=== PATIENT | male | born 1955 | race Caucasian/White ===

== ENCOUNTER 2017-01-02 14:42 | Inpatient (IN) ==
[2017-01-02] MEDS ORDERED: 0.9 % Sodium Chloride 1,000 ML IV ONE (15:53)
[2017-01-02] MEDS ORDERED: Ipratropium/Albuterol Neb 3 ML IH ONE (16:06)
--- NOTE | 2017-01-02 17:18 | Emergency Department Note ---
Disposition Clinical Impression: Community acquired pneumonia Disposition: Admitted As Inpatient Referrals: Ruy Rollins MD [Primary Care Provider] - Forms: ED Satisfaction Letter Fever HPI - General Chief Complaint: ED Fever Stated Complaint: fever Time Seen by Provider: 01/02/17 15:08 Source: patient Nursing Notes Reviewed: Yes Vital Signs Reviewed: Yes - History of Present Illness HPI Narrative: Patient with fever and cough that started today ago. Patient states he has had some discharge from his trachea that is yellow in color. Patient has had elevated temperature and diffuse body aches. Patient states he has also having trouble breathing. Some fevers at home. Patient says similar past where he became septic. She denies chest pain denies shortness of breath. Patient denies any sick contacts. Patient denies neck or alleviating factors associated with shortness of breath - Related Data Home Medications Medication Instructions Recorded Confirmed Allopurinol [Zyloprim] 100 mg PO BID 07/05/15 01/02/17 Apixaban [Eliquis] 5 mg PO BID #0 07/05/15 01/02/17 Budesonide/Formoterol 160/4.5 2 puff IH BIDR 07/05/15 01/02/17 [Symbicort] Digoxin [Lanoxin] 250 mcg PO QAM 07/05/15 01/02/17 Fluticasone Propionate Nasal 50 mcg NS DAILY 07/05/15 01/02/17 [Flonase] Furosemide [Lasix] 40 mg PO BID 07/05/15 01/02/17 Loratadine [Claritin] 10 mg PO HS 07/05/15 01/02/17 Pioglitazone [Actos] 45 mg PO QAM 07/05/15 01/02/17 Potassium Chloride 20 meq PO QAM 07/05/15 01/02/17 Simvastatin [Zocor] 20 mg PO HS 07/05/15 01/02/17 Aspirin 81 mg PO QAM 07/21/15 01/02/17 Gabapentin [Neurontin] 800 mg PO TID 07/21/15 01/02/17 Metoprolol [Lopressor] 100 mg PO BID 07/21/15 01/02/17 Nitroglycerin 0.4 mg SL Q5MIN PRN 07/21/15 01/02/17 Tamsulosin [Flomax] 0.4 mg PO QAM 07/21/15 01/02/17 Tiotropium [Spiriva] 18 mcg IH DAILY 01/12/16 01/02/17 Albuterol Neb [Proventil Neb] 2.5 mg IH TID 01/27/16 01/02/17 Morphine Sulfate 15 mg PO Q4H PRN 01/27/16 01/02/17 Ergocalciferol (VITAMIN D2) 50,000 unit PO BARR 01/02/17 01/02/17 [Vitamin D2 (50,000 UNIT)] Previous Rx's Medication Instructions Recorded Albuterol Sulfate [Albuterol 2 puff IH Q6HR PRN #2 inhaler 11/30/15 Inhaler] Levothyroxine [Synthroid] 88 mcg PO QAM #30 tablet 04/17/16 GuaiFENesin/Codeine [Robitussin 5 ml PO Q6HR PRN #200 ml 09/26/16 w/Codeine] Allergies Allergy/AdvReac Type Severity Reaction Status Date / Time Amoxicillin Allergy Mild Rash Verified 01/02/17 14:46 ampicillin Allergy Mild Rash Verified 01/02/17 14:46 cefazolin Allergy Mild Rash Verified 01/02/17 14:46 cephalexin [From Keflex] Allergy Mild Rash Verified 01/02/17 14:46 levofloxacin [From Levaquin] Allergy Mild Blister Verified 01/02/17 14:46 Penicillins Allergy Mild Rash Verified 01/02/17 14:46 pramipexole [From Mirapex] Allergy Mild Rash Verified 01/02/17 14:46 Sulfa (Sulfonamide Allergy Mild Rash Verified 01/02/17 14:46 Antibiotics) vancomycin Allergy Mild RED MAN Verified 01/02/17 14:46 SYNDROME-SKIN PEELS clindamycin Allergy See Verified 01/02/17 14:46 Comments Oxycodone AdvReac Severe Unresponsiv Verified 01/02/17 14:46 e All systems ED: reviewed and negative except as stated. Fever PMH - Past Medical History Medical history: Reports: arthritis, atrial fibrillation, cancer, COPD, diabetes , hyperlipidemia, hypertension, peripheral artery disease, thyroid disease, other Surgical history: Reports: angioplasty/stent, appendectomy, cholecystectomy, orthopedic, other, pacemaker/AICD, tracheostomy, other Surgical history: Reports: other (Tracheostomy) Psychiatric history: Reports: no psych history - Social History Smoking Status: Never smoker Alcohol use: Reports: none Drug use: Reports: none Physical Exam - General Limitations: no limitations General appearance: alert, in no apparent distress - Head Head exam: atraumatic, normocephalic, normal inspection - Eye Eye exam: Present: normal appearance, PERRL, EOMI - ENT ENT exam: normal exam, normal oropharynx, mucous membranes moist - Neck Neck exam: Present: normal inspection, full ROM, trachea midline - Chest Chest inspection: Present: normal inspection, symmetric chest wall rise - Respiratory Respiratory exam: Present: wheezes, prolonged expiratory phase - Cardiovascular Cardiovascular exam: Present: regular rate, normal rhythm, normal heart sounds - Abdominal Exam Abdominal exam: Present: soft, Non-Tender. Absent: tenderness, distention, guarding, rebound, rigidity - Extremities Exam Extremities exam: Present: normal inspection, full ROM. Absent: tenderness, pedal edema - Back Exam Back exam: Present: normal inspection, full ROM. Absent: tenderness - Neurological Exam Neurological exam: Present: alert, oriented X3 - Psychiatric Psychiatric exam: Present: normal affect, normal mood - Skin Skin exam: Present: warm, dry, intact, normal color Course Course Narrative: Discussed this patient with Dr. Dalton who graciously accepted the patient Vital Signs Temperature 99.4 F 01/02/17 14:46 Pulse Rate 85 01/02/17 14:46 Respiratory Rate 22 01/02/17 14:46 Blood Pressure 163/78 01/02/17 14:46 O2 Sat by Pulse Oximetry 93 L 01/02/17 14:46 Temperature 99.6 F 01/02/17 19:33 Pulse Rate 72 01/02/17 20:22 Respiratory Rate 16 01/02/17 20:22 Blood Pressure 92/72 01/02/17 20:22 O2 Sat by Pulse Oximetry 94 L 01/02/17 20:22 Oxygen Delivery Oxygen Delivery Trach Mask Fever - Differential Diagnosis Likely: cellulitis, fever of occult origin, community acquired pneumonia, pyelonephritis - Lab Data Lab results reviewed: Yes I reviewed the patient's lab results. Result diagrams: 01/02/17 17:51 01/02/17 17:51 Lab Results 01/02/17 01/02/17 01/02/17 Range/Units 17:51 17:51 17:51 WBC 4.5 (4.3-11.1) K/mcL RBC 6.30 H (4.19-5.50) M/mcL Hgb 17.4 H (12.9-16.9) g/dL Hct 53.0 H (37.5-50.1) % MCV 84.1 (83.0-100.0) fL MCH 27.6 L (28.0-33.3) pg MCHC 32.8 (31.6-35.5) g/dL RDW 18.7 H (11.5-14.5) % Plt Count 93 L (140-400) K/mcL MPV 10.2 (9.4-12.4) fL Immature Gran % 0.2 (0-4) % Seg Neutrophils % 68.9 % Lymphocytes % 21.2 % Monocytes % 8.8 % Eosinophils % 0.2 % Basophils % 0.7 % Neutrophils # 3.1 (1.6-8.9) K/mcL Lymphocytes # 1.0 (0.6-4.6) K/mcL Monocytes # 0.4 (0.0-1.3) K/mcL Eosinophils # 0.0 (0.0-0.6) K/mcL Basophils # 0.0 (0.0-0.2) K/mcL Platelet Estimate Decreased L (Normal) Immature Plt Fraction 3.2 (1.1-6.1) % PT 22.4 H (9.4-12.1) Seconds INR 2.0 APTT 45.9 H (26.0-36.0) Seconds ABG pH (7.32-7.45) pH Units ABG pCO2 (35-45) mmHg ABG pO2 (85-104) mmHg ABG HCO3 (21-27) mEQ/L ABG Total CO2 (20-26) mEq/L ABG O2 Saturation (95-98) % ABG Base Excess (-2.0 to 3.0) mEq/L Blood Gas Modality Inspired O2 % Sodium (136-145) mEq/L Potassium (3.5-4.5) mEq/L Chloride (98-109) mEq/L Carbon Dioxide (19-29) mEq/L BUN (8-26) mg/dL Creatinine (0.72-1.25) mg/dL Est GFR ( Amer) (> 60) Est GFR (Non-Af Amer) (> 60) BUN/Creatinine Ratio (6-26) Glucose (70-99) mg/dL Calculated Osmolality (280-300) Lactic Acid (0.5-2.2) mmol/L Calcium (8.6-10.8) mg/dL Total Bilirubin (0.2-1.2) mg/dL AST (5-34) Units/L ALT (0-55) Units/L Alkaline Phosphatase (38-126) Units/L Troponin I (0-0.03) ng/mL B-Natriuretic Peptide 84 (0-100) pg/mL Serum Total Protein (6.0-8.3) g/dL Albumin (3.5-5.0) g/dL Globulin (2.4-3.5) g/dL Albumin/Globulin Ratio (1.1-2.2) Urine Color (Yellow) Urine Clarity (Clear) Urine pH (5.0-8.0) pH Units Ur Specific [place] (1.010-1.025) Urine Protein (Neg-Trace) mg/dL Urine Glucose (UA) (Normal) mg/dL Urine Ketones (Negative) mg/dL Urine Blood (Negative) Urine Nitrite (Negative) Urine Bilirubin (Negative) Urine Urobilinogen (Normal) mg/dL Ur Leukocyte Esterase (Negative) Urine Microscopic RBC (0-3) per hpf Urine Microscopic WBC (0-3) per hpf Ur Squamous Epith Cells (None-Few) per lpf Urine Bacteria (None-Few) per hpf Hyaline Casts (None-Few) per lpf Ur Culture Indicated? (NO) 01/02/17 01/02/17 01/02/17 Range/Units 17:51 17:51 17:51 WBC (4.3-11.1) K/mcL RBC (4.19-5.50) M/mcL Hgb (12.9-16.9) g/dL Hct (37.5-50.1) % MCV (83.0-100.0) fL MCH (28.0-33.3) pg MCHC (31.6-35.5) g/dL RDW (11.5-14.5) % Plt Count (140-400) K/mcL MPV (9.4-12.4) fL Immature Gran % (0-4) % Seg Neutrophils % % Lymphocytes % % Monocytes % % Eosinophils % % Basophils % % Neutrophils # (1.6-8.9) K/mcL Lymphocytes # (0.6-4.6) K/mcL Monocytes # (0.0-1.3) K/mcL Eosinophils # (0.0-0.6) K/mcL Basophils # (0.0-0.2) K/mcL Platelet Estimate (Normal) Immature Plt Fraction (1.1-6.1) % PT (9.4-12.1) Seconds INR APTT (26.0-36.0) Seconds ABG pH (7.32-7.45) pH Units ABG pCO2 (35-45) mmHg ABG pO2 (85-104) mmHg ABG HCO3 (21-27) mEQ/L ABG Total CO2 (20-26) mEq/L ABG O2 Saturation (95-98) % ABG Base Excess (-2.0 to 3.0) mEq/L Blood Gas Modality Inspired O2 % Sodium 137 (136-145) mEq/L Potassium 4.0 (3.5-4.5) mEq/L Chloride 102 (98-109) mEq/L Carbon Dioxide 26 (19-29) mEq/L BUN 14 (8-26) mg/dL Creatinine 1.14 (0.72-1.25) mg/dL Est GFR ( Amer) > 60 (> 60) Est GFR (Non-Af Amer) > 60 (> 60) BUN/Creatinine Ratio 12 (6-26) Glucose 85 (70-99) mg/dL Calculated Osmolality 284 (280-300) Lactic Acid 1.1 (0.5-2.2) mmol/L Calcium 8.9 (8.6-10.8) mg/dL Total Bilirubin 0.9 (0.2-1.2) mg/dL AST 24 (5-34) Units/L ALT 14 (0-55) Units/L Alkaline Phosphatase 82 (38-126) Units/L Troponin I 0.01 (0-0.03) ng/mL B-Natriuretic Peptide (0-100) pg/mL Serum Total Protein 6.7 (6.0-8.3) g/dL Albumin 3.4 L (3.5-5.0) g/dL Globulin 3.3 (2.4-3.5) g/dL Albumin/Globulin Ratio 1.0 L (1.1-2.2) Urine Color (Yellow) Urine Clarity (Clear) Urine pH (5.0-8.0) pH Units Ur Specific [place] (1.010-1.025) Urine Protein (Neg-Trace) mg/dL Urine Glucose (UA) (Normal) mg/dL Urine Ketones (Negative) mg/dL Urine Blood (Negative) Urine Nitrite (Negative) Urine Bilirubin (Negative) Urine Urobilinogen (Normal) mg/dL Ur Leukocyte Esterase (Negative) Urine Microscopic RBC (0-3) per hpf Urine Microscopic WBC (0-3) per hpf Ur Squamous Epith Cells (None-Few) per lpf Urine Bacteria (None-Few) per hpf Hyaline Casts (None-Few) per lpf Ur Culture Indicated? (NO) 01/02/17 01/02/17 Range/Units 18:00 20:46 WBC (4.3-11.1) K/mcL RBC (4.19-5.50) M/mcL Hgb (12.9-16.9) g/dL Hct (37.5-50.1) % MCV (83.0-100.0) fL MCH (28.0-33.3) pg MCHC (31.6-35.5) g/dL RDW (11.5-14.5) % Plt Count (140-400) K/mcL MPV (9.4-12.4) fL Immature Gran % (0-4) % Seg Neutrophils % % Lymphocytes % % Monocytes % % Eosinophils % % Basophils % % Neutrophils # (1.6-8.9) K/mcL Lymphocytes # (0.6-4.6) K/mcL Monocytes # (0.0-1.3) K/mcL Eosinophils # (0.0-0.6) K/mcL Basophils # (0.0-0.2) K/mcL Platelet Estimate (Normal) Immature Plt Fraction (1.1-6.1) % PT (9.4-12.1) Seconds INR APTT (26.0-36.0) Seconds ABG pH 7.41 (7.32-7.45) pH Units ABG pCO2 46 H (35-45) mmHg ABG pO2 68 L (85-104) mmHg ABG HCO3 29.2 H (21-27) mEQ/L ABG Total CO2 30.6 H (20-26) mEq/L ABG O2 Saturation 93 L (95-98) % ABG Base Excess 3.6 H (-2.0 to 3.0) mEq/L Blood Gas Modality CATM Inspired O2 28 % Sodium (136-145) mEq/L Potassium (3.5-4.5) mEq/L Chloride (98-109) mEq/L Carbon Dioxide (19-29) mEq/L BUN (8-26) mg/dL Creatinine (0.72-1.25) mg/dL Est GFR ( Amer) (> 60) Est GFR (Non-Af Amer) (> 60) BUN/Creatinine Ratio (6-26) Glucose (70-99) mg/dL Calculated Osmolality (280-300) Lactic Acid (0.5-2.2) mmol/L Calcium (8.6-10.8) mg/dL Total Bilirubin (0.2-1.2) mg/dL AST (5-34) Units/L ALT (0-55) Units/L Alkaline Phosphatase (38-126) Units/L Troponin I (0-0.03) ng/mL B-Natriuretic Peptide (0-100) pg/mL Serum Total Protein (6.0-8.3) g/dL Albumin (3.5-5.0) g/dL Globulin (2.4-3.5) g/dL Albumin/Globulin Ratio (1.1-2.2) Urine Color Yellow (Yellow) Urine Clarity Clear (Clear) Urine pH 6.0 (5.0-8.0) pH Units Ur Specific [place] 1.011 (1.010-1.025) Urine Protein Negative (Neg-Trace) mg/dL Urine Glucose (UA) Normal (Normal) mg/dL Urine Ketones Negative (Negative) mg/dL Urine Blood Trace H (Negative) Urine Nitrite Negative (Negative) Urine Bilirubin Negative (Negative) Urine Urobilinogen Normal (Normal) mg/dL Ur Leukocyte Esterase Negative (Negative) Urine Microscopic RBC 0-3 (0-3) per hpf Urine Microscopic WBC 0-3 (0-3) per hpf Ur Squamous Epith Cells Moderate H (None-Few) per lpf Urine Bacteria None Seen (None-Few) per hpf Hyaline Casts None Seen (None-Few) per lpf Ur Culture Indicated? NO (NO) - Radiology Data Radiology results reviewed: Yes I reviewed the patient's radiology results. Chest X-Ray 01/02/17 15:51 IMPRESSION: 1. Stable low lung volumes with bibasilar atelectasis. D/ / Alexis Luis MD / Alexis Luis MD Interpreting Provider: Alexis Luis MD Abdomen/Pelvis CT 01/02/17 18:36 IMPRESSION: 1. Central atelectasis in the right middle and bilateral lower lobes with scattered ground-glass opacities in the upper lobes. Pattern may represent ARDS or pulmonary edema. Aspiration or pneumonitis would be considered less likely. 2. Mild mucosal thickening of the bladder. This may be due to nondistention. Underlying cystitis cannot be excluded. 3. No other significant findings are detected throughout. D/ / Andrew Malcolm MD / Andrew Malcolm MD Interpreting Provider: Andrew Malcolm MD Chest CT 01/02/17 18:36 IMPRESSION: 1. Central atelectasis in the right middle and bilateral lower lobes with scattered ground-glass opacities in the upper lobes. Pattern may represent ARDS or pulmonary edema. Aspiration or pneumonitis would be considered less likely. 2. Mild mucosal thickening of the bladder. This may be due to nondistention. Underlying cystitis cannot be excluded. 3. No other significant findings are detected throughout. D/ / Andrew Malcolm MD / Andrew Malcolm MD Interpreting Provider: Andrew Malcolm MD - EKG Data EKG attestation: Yes I reviewed and interpreted this EKG. EKG results narrative: Electrically paced rhythm Critical Care Time Total Critical Care Time: 35 Attestation: Critical care performed: Time is exclusive of separately billable procedures. Time includes: direct patient care, patient reassessment, coordination of patient care, interpretation of data (laboratory data, radiology data, and respiratory data), review of patient's medical records, medical consultation and documentation of patient care. Procedures included in critical care time: Procedures excluded from critical care time:
[2017-01-02 18:12] LABS: Eosinophils % 0.2 %; Immature Granulocytes % 0.2 % (0-4); Prothrombin Time 22.4 Seconds (9.4-12.1)
[2017-01-02 18:14] LABS: Activated Partial Thrombo Time 45.9 Seconds (26.0-36.0)
[2017-01-02 18:21] LABS: Immature Platelets 3.2 % (1.1-6.1)
[2017-01-02 18:29] LABS: Alanine Aminotransferase 14 Units/L (0-55); Albumin 3.4 g/dL (3.5-5.0); Alkaline Phosphatase 82 Units/L (38-126); Aspartate Amino Transferase 24 Units/L (5-34); BUN/Creatinine Ratio 12 (6-26); Bilirubin,Total 0.9 mg/dL (0.2-1.2); Blood Urea Nitrogen 14 mg/dL (8-26); Calcium 8.9 mg/dL (8.6-10.8); Carbon Dioxide 26 mEq/L (19-29); Chloride 102 mEq/L (98-109); Globulin 3.3 g/dL (2.4-3.5); Glucose 85 mg/dL (70-99); Osmolality,Calculated 284 (280-300); Sodium 137 mEq/L (136-145); Total Protein 6.7 g/dL (6.0-8.3); eGFR For African Americans > 60 (> 60); eGFR For Non-African Americans > 60 (> 60)
[2017-01-02 18:33] LABS: Basophils % 0.7 %; Hemoglobin 17.4 g/dL (12.9-16.9); Lymphocytes % 21.2 %; Mean Corpuscular HGB Conc 32.8 g/dL (31.6-35.5); Mean Corpuscular Hemoglobin 27.6 pg (28.0-33.3); Mean Corpuscular Volume 84.1 fL (83.0-100.0); Mean Platelet Volume 10.2 fL (9.4-12.4); Monocytes # 0.4 K/mcL (0.0-1.3); Monocytes % 8.8 %; Neutrophils # 3.1 K/mcL (1.6-8.9); Red Cell Distribution Width 18.7 % (11.5-14.5); Segmented Neutrophils % 68.9 %
[2017-01-02 18:57] LABS: Platelet Count 93 K/mcL (140-400)
[2017-01-02 19:06] LABS: Platelet Estimate Decreased (Normal)
[2017-01-02 20:51] LABS: Bilirubin,Urine Negative (Negative); Blood,Urine Trace (Negative); Clarity,Urine Clear (Clear); Color,Urine Yellow (Yellow); Glucose,Urine (UA) Normal (Normal); Ketones,Urine Negative (Negative); Leukocyte Esterase,Urine Negative (Negative); Nitrite,Urine Negative (Negative); Protein,Urine Negative (Neg-Trace); Specific Gravity,Urine 1.011 (1.010-1.025); Urobilinogen,Urine Normal (Normal)
[2017-01-02 20:54] LABS: Bacteria,Urine None Seen per hpf (None-Few); Hyaline Casts,Urine None Seen per lpf (None-Few); RBC,Urine 0-3 per hpf (0-3); Squamous Epithelial Cell,Urine Moderate per lpf (None-Few); WBC,Urine 0-3 per hpf (0-3)
[2017-01-02 20:57] LABS: ABG Base Excess 3.6 mEq/L (-2.0 to 3.0); ABG HCO3 29.2 mEQ/L (21-27); ABG Oxygen Saturation 93 % (95-98); ABG PCO2 46 mmHg (35-45); ABG PH 7.41 pH Units (7.32-7.45); ABG PO2 68 mmHg (85-104); ABG TCO2 30.6 mEq/L (20-26)
[2017-01-02 21:00] LABS: Blood Gas FiO2 28 %
--- NOTE | 2017-01-02 23:23 | Internal Med History&Physical ---
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 labs to include lactic acid, procalcitonin, CRP Qualifiers: Sepsis type: sepsis due to unspecified organism Qualified Code(s): A41.9 - Sepsis, unspecified organism (2) Thrombocytopenia Status: Acute (3) Polycythemia Status: Chronic chronic has been elevated since August (4) Diabetes mellitus Status: Chronic Qualifiers: Diabetes mellitus type: type 2 Diabetes mellitus complication status: without complication Diabetes mellitus human insights lead ads marketing insulin use: unspecified human insights lead ads marketing insulin use status Qualified Code(s): E11.9 - Type 2 diabetes mellitus without complications (5) Hypertension Status: Chronic Qualifiers: Hypertension type: essential hypertension Qualified Code(s): I10 - Essential (primary) hypertension (6) Hypothyroidism Status: Chronic Qualifiers: Hypothyroidism type: unspecified Qualified Code(s): E03.9 - Hypothyroidism , unspecified (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 Vogel is a 61 year old male with a past medical history that includes hypertension, hyperlipidemia, coronary artery disease, peripheral vascular disease, diabetes, COPD, allergic rhinitis, chronic bronchitis, Castleman disease and tracheostomy status. He presents to the emergency department with a three-day history of fever, cough, and weakness. MAXIMUM TEMPERATURE 102. He has felt chills with his temperatures. He has had increased secretions from his tracheostomy. He has had nausea and emesis of mucus. He is having chest wall and abdominal (diaphragm) pain worsened during coughing. Positive sick contacts. Past Med Surg Social Fam HX - Past Medical History Medical history: arthritis, atrial fibrillation, cancer, COPD, diabetes, hyperlipidemia, hypertension, peripheral artery disease, thyroid disease, other Psychiatric history: no psych history - Past Surgical History Surgical History: angioplasty/stent, appendectomy, cholecystectomy, orthopedic, other, pacemaker/AICD, tracheostomy, other - Social History Smoking Status: Never smoker Smokeless Tobacco Status: No Alcohol use: none Drug use: none - Family History Mother Family Member Ethnicity: Non- Living Status: Still Living Father Living Status: Age at : 59 Cause of : cancer Hx Family Cancer: Yes Internal Medicine - H&P: Meds Allopurinol [Zyloprim] 100 mg PO BID 07/05/15 [History] Apixaban [Eliquis] 5 mg PO BID #0 07/05/15 [History] Budesonide/Formoterol 160/4.5 [Symbicort] 2 puff IH BIDR 07/05/15 [History] Digoxin [Lanoxin] 250 mcg PO QAM 07/05/15 [History] Fluticasone Propionate Nasal [Flonase] 50 mcg NS DAILY 07/05/15 [History] Furosemide [Lasix] 40 mg PO BID 07/05/15 [History] Loratadine [Claritin] 10 mg PO HS 07/05/15 [History] Pioglitazone [Actos] 45 mg PO QAM 07/05/15 [History] Potassium Chloride 20 meq PO QAM 07/05/15 [History] Simvastatin [Zocor] 20 mg PO HS 07/05/15 [History] Aspirin 81 mg PO QAM 07/21/15 [History] Gabapentin [Neurontin] 800 mg PO TID 07/21/15 [History] Metoprolol [Lopressor] 100 mg PO BID 07/21/15 [History] Nitroglycerin 0.4 mg SL Q5MIN PRN 07/21/15 [History] Tamsulosin [Flomax] 0.4 mg PO QAM 07/21/15 [History] Albuterol Sulfate [Albuterol Inhaler] 2 puff IH Q6HR PRN #2 inhaler 11/30/15 [Rx ] Tiotropium [Spiriva] 18 mcg IH DAILY 01/12/16 [History] Albuterol Neb [Proventil Neb] 2.5 mg IH TID 01/27/16 [History] Morphine Sulfate 15 mg PO Q4H PRN 01/27/16 [History] Levothyroxine [Synthroid] 88 mcg PO QAM #30 tablet 04/17/16 [Rx] GuaiFENesin/Codeine [ROBITUSSIN w/CODEINE] 5 ml PO Q6HR PRN #200 ml 09/26/16 [Rx ] Ergocalciferol (VITAMIN D2) [Vitamin D2 (50,000 UNIT)] 50,000 unit PO BARR [History] Benzonatate [Tessalon] 100 mg PO TID PRN #30 capsule 01/05/17 [Rx] Cefepime HCl/Dextrose, Iso-Osm [Cefepime 1 gm Injection] 1 gm IV Q12H 11 Days [Rx] PredniSONE 40 mg PO DAILY 6 Days 01/05/17 [Rx] Allergies Amoxicillin Allergy (Mild, Verified 01/02/17 14:46) Rash ampicillin Allergy (Mild, Verified 01/02/17 14:46) Rash cefazolin Allergy (Mild, Verified 01/02/17 14:46) Rash cephalexin [From Keflex] Allergy (Mild, Verified 01/02/17 14:46) Rash levofloxacin [From Levaquin] Allergy (Mild, Verified 01/02/17 14:46) Blister Penicillins Allergy (Mild, Verified 01/02/17 14:46) Rash pramipexole [From Mirapex] Allergy (Mild, Verified 01/02/17 14:46) Rash Sulfa (Sulfonamide Antibiotics) Allergy (Mild, Verified 01/02/17 14:46) Rash vancomycin Allergy (Mild, Verified 01/02/17 14:46) RED MAN SYNDROME-SKIN PEELS clindamycin Allergy (Verified 01/02/17 14:46) See Comments Oxycodone Adverse Reaction (Severe, Verified 01/02/17 14:46) Unresponsive All Systems PM: A 10-system review of systems was performed and is negative for pertinent findings except as documented above in the HPI. - Constitutional Constitutional: chills, fever(s) (tMax 102), malaise, weakness, no night sweats - EENT Eyes: no change in vision, no discharge, no pain, no photophobia Ears: no ear discharge, no ear pain, no tinnitus Nose, mouth and throat: nasal discharge, no dysphagia, no neck pain, no sore throat - Cardiovascular Cardiovascular ROS IM: chest pain (chest wall pain), no diaphoresis, no dyspnea , no lightheadedness, no palpitations, no syncope - Respiratory Respiratory: cough, excessive phlegm production, no dyspnea, no wheezing - Gastrointestinal Gastrointestinal: abdominal pain (diaphragm level), constipation, diarrhea, no hematemesis, no hematochezia, no melena, no nausea, no vomiting - Genitourinary Genitourinary ROS male: dysuria, penile discharge - Musculoskeletal Musculoskeletal ROS IM: no numbness, no tingling - Integumentary Integumentary IM: no rash, no unusual bruising - Neurological Neurological ROS: no confusion, no convulsions, no focal weakness, no numbness, no tingling, no tremor(s) - Hematologic/Lymphatic Hematologic/Lymphatic: no easy bruising - Constitutional Vitals: Temp Pulse Resp BP Pulse Ox 98.8 F 73 15 93/63 95 01/02/17 22:23 01/02/17 22:23 01/02/17 22:23 01/02/17 22:23 01/02/17 22:23 General appearance: Present: A&O X 3, no acute distress, answers questions appropriately - Head Head exam: Present: atraumatic, normocephalic - Eye Eye exam: Present: PERRL, conjuntiva pink, sclera anicteric Pupils: Present: PERRL - Neck Additional comments: tracheostomy - Respiratory Respiratory exam: Present: prolonged expiratory phase, wheezes - Cardiovascular Cardiovascular exam: Present: RRR, +S1, +S2. Absent: diastolic murmur, gallop, rubs, systolic murmur - GI/Abdominal GI/Abdominal exam: Present: normal bowel sounds, soft, no peritoneal signs. Absent: distended, tenderness - Extremities Exam Extremities exam: Present: warm. Absent: calf tenderness, cyanotic, pedal edema - Neurological Exam Neurological exam: Present: CN II-XII intact, oriented X3, no focal deficits. Absent: pronater drift, facial droop, speech deficit - Skin Skin exam: Present: dry, intact - Other Additional findings: chest wall pain is reproducible on exam Internal Med - H&P Results - Labs CBC & Chem 7: 01/02/17 17:51 01/02/17 17:51 <Thad Hillman - Last Filed: 01/09/17 05:17> Date of Encounter: 01/02/17 Assessment and Plan (1) Sepsis associated hypotension Status: Acute . (2) Sepsis with disseminated intravascular coagulopathy (DIC) Status: Acute . (3) SIRS due to infectious process with acute organ dysfunction Status: Acute . (4) Pacemaker Status: Chronic . (5) Pseudomonas aeruginosa colonization Status: Chronic . (6) MRSA (methicillin resistant Staphylococcus aureus) colonization Status: Chronic . (7) Atelectasis of both lungs Status: Acute . (8) HCAP (healthcare-associated pneumonia) Status: Acute . (9) Multiple drug allergies Status: Chronic . (10) At risk for acid-base imbalance Status: Acute . (11) At risk for activity intolerance Status: Acute . (12) At risk for acute confusion Status: Acute . (13) Polypharmacy Status: Chronic . (14) Hypothyroidism Status: Chronic . Qualifiers: Hypothyroidism type: acquired Qualified Code(s): E03.9 - Hypothyroidism, unspecified (15) Hypogonadism Status: Chronic . 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 (17) Monoclonal gammopathy Status: Chronic . (18) Risk for falls Status: Chronic . (19) Sepsis Status: Chronic . Qualifiers: Sepsis type: sepsis due to unspecified organism Qualified Code(s): A41.9 - Sepsis, unspecified organism (20) Tracheitis Status: Acute . (21) Acute exacerbation of chronic obstructive pulmonary disease (COPD) Status: Acute . (22) Atrial fibrillation Status: Chronic . Qualifiers: Atrial fibrillation type: chronic Qualified Code(s): I48.2 - Chronic atrial fibrillation (23) CAD (coronary artery disease) Status: Chronic . Qualifiers: Coronary Disease-Associated Artery/Lesion type: unspecified vessel or lesion type [place] vs. transplanted heart: in[place]iat heart Associated angina: without angina Qualified Code(s): I25.10 - Atherosclerotic heart disease of [place] coronary artery without angina pectoris (24) Castleman disease Status: Chronic . (25) Chronic respiratory failure Status: Chronic . Qualifiers: Respiratory failure complication: unspecified whether with hypoxia or hypercapnia Qualified Code(s): J96.10 - Chronic respiratory failure, unspecified whether with hypoxia or hypercapnia (26) Diabetes mellitus Status: Chronic . Qualifiers: Diabetes mellitus type: type 2 Diabetes mellitus complication status: without complication Diabetes mellitus nursing home insulin use: without nursing home use Qualified Code(s): E11.9 - Type 2 diabetes mellitus without complications (27) Hypertension Status: Chronic . Qualifiers: Hypertension type: essential hypertension Qualified Code(s): I10 - Essential (primary) hypertension (28) Hypothyroidism Status: Chronic . Qualifiers: Hypothyroidism type: unspecified Qualified Code(s): E03.9 - Hypothyroidism , unspecified (29) Immunodeficiency Status: Chronic . (30) POEMS syndrome Status: Chronic . (31) Tracheobronchitis Status: Chronic . (32) Tracheostomy dependent Status: Chronic (33) Erythrocytosis Status: Chronic . (34) EMILY (obstructive sleep apnea) Status: Chronic . (35) Obesity (BMI 30-39.9) Status: Chronic . (36) Debility, unspecified Status: Chronic . Internal Medicine - H&P: HPI History of present illness: Mr. Vogel is a 61 year old male needed to [facility] via the emergency department when he presented with complaints of difficulty breathing and fever. Patient is visited and interviewed and examined. For this encounter, I have reviewed the documentation, treatment plan, and medical decision making. I examined this patient and my medical decision-making was reviewed with the Resident Physician. I agree with the documented findings, disposition and treatment plan as described except to the extent set forth below. Cumulative laboratory and radiographic database was reviewed, considered and discussed. Given the patient's presenting concerns, past medical history, clinical findings and symptoms, he is admitted at this time to undergo further evaluation and disposition. Orders written. Past Med Surg Social Fam HX - Past Medical History Source: old records reviewed Medical history: arthritis, asthma, atrial fibrillation (Pacemaker dependent.), cancer, COPD ( The ostomy for ventilator-dependent respiratory failure. EMILY. ), coronary artery disease, diabetes, GERD, GI bleed (Gastric ulceration with GI bleed.), hyperlipidemia, hypertension, osteoporosis, peripheral artery disease, renal disease (CKD. Hypogonadism.), thyroid disease, other (POEMS Syndrome(polyneuropathy, organomegaly, endocrinopathy, monoclonal protein, skin changes). Patient receives monthly IV Ig injections.) Psychiatric history: no psych history, other - Past Surgical History Surgical History: angioplasty/stent, appendectomy, arthroscopy, cholecystectomy , LE vascular intervention, orthopedic, other, pacemaker/AICD, sinus surgery, tracheostomy, vascular surgery, other, pacemaker - Social History Smoking Status: Former smoker Occupational status: disabled Current living situation: With Family Activity Level: Independent ambulation, Mostly sedentary Recent Out of Country Travel Within the Last 8 Weeks: No Exposure or Possible Exposure to Illness During Travel: No All Systems PM: A 10-system review of systems was performed and is negative for pertinent findings except as documented above in the HPI. - Constitutional Vitals: Temp Pulse Resp BP Pulse Ox 97.9 F 73 16 99/64 93 L 01/05/17 14:45 01/05/17 14:45 01/05/17 16:15 01/05/17 14:45 01/05/17 16:15 Internal Med - H&P Results - Labs CBC & Chem 7: 01/04/17 05:51 01/04/17 05:51 Labs: 01/02/17 01/03/17 20:46 05:55 ABG pH 7.41 ABG pCO2 46 H ABG pO2 68 L ABG HCO3 29.2 H ABG Total CO2 30.6 H ABG O2 Saturation 93 L ABG Base Excess 3.6 H VBG pH 7.37 VBG pCO2 53 H VBG pO2 49 H VBG HCO3 30.6 H Abnormal lab results RBC 6.56 M/mcL (4.19-5.50) H 01/04/17 05:51 Hgb 17.4 g/dL (12.9-16.9) H 01/04/17 05:51 Hct 54.2 % (37.5-50.1) H 01/04/17 05:51 MCV 82.6 fL (83.0-100.0) L 01/04/17 05:51 MCH 26.5 pg (28.0-33.3) L 01/04/17 05:51 RDW 18.3 % (11.5-14.5) H 01/04/17 05:51 Plt Count 86 K/mcL (140-400) L 01/04/17 05:51 Platelet Estimate Decreased (Normal) L 01/04/17 05:51 Polychromasia 1+ (Not Present) A 01/04/17 05:51 Macrocytosis Present (Not Present) A 01/04/17 05:51 PT 20.4 Seconds (9.4-12.1) H 01/03/17 05:55 APTT 42.7 Seconds (26.0-36.0) H 01/03/17 05:55 ABG pCO2 46 mmHg (35-45) H 01/02/17 20:46 ABG pO2 68 mmHg (85-104) L 01/02/17 20:46 ABG HCO3 29.2 mEQ/L (21-27) H 01/02/17 20:46 ABG Total CO2 30.6 mEq/L (20-26) H 01/02/17 20:46 ABG O2 Saturation 93 % (95-98) L 01/02/17 20:46 ABG Base Excess 3.6 mEq/L (-2.0 to 3.0) H 01/02/17 20:46 VBG pCO2 53 mmHg (41-51) H 01/03/17 05:55 VBG pO2 49 mmHg (25-40) H 01/03/17 05:55 VBG HCO3 30.6 mEq/L (21-27) H 01/03/17 05:55 Glucose 179 mg/dL (70-99) H 01/04/17 05:51 POC Glucose 176 (58-89) H 01/05/17 16:08 Calcium 8.5 mg/dL (8.6-10.8) L 01/04/17 05:51 Ionized Calcium 1.09 mmol/L (1.15-1.35) L 01/03/17 05:55 C-Reactive Protein 23 mg/L (Less than 5) H 01/03/17 05:55 Serum Total Protein 5.9 g/dL (6.0-8.3) L 01/03/17 05:55 Albumin 3.1 g/dL (3.5-5.0) L 01/03/17 05:55 Procalcitonin 0.11 ng/mL (<=0.10) H 01/03/17 05:55 Urine Blood Trace (Negative) H 01/02/17 18:00 Ur Squamous Epith Cells Moderate per lpf (None-Few) H 01/02/17 18:00 Allergies Allergy/AdvReac Type Severity Reaction Status Date / Time Amoxicillin Allergy Mild Rash Verified 01/02/17 14:46 ampicillin Allergy Mild Rash Verified 01/02/17 14:46 cefazolin Allergy Mild Rash Verified 01/02/17 14:46 cephalexin [From Keflex] Allergy Mild Rash Verified 01/02/17 14:46 levofloxacin [From Levaquin] Allergy Mild Blister Verified 01/02/17 14:46 Penicillins Allergy Mild Rash Verified 01/02/17 14:46 pramipexole [From Mirapex] Allergy Mild Rash Verified 01/02/17 14:46 Sulfa (Sulfonamide Allergy Mild Rash Verified 01/02/17 14:46 Antibiotics) vancomycin Allergy Mild RED MAN Verified 01/02/17 14:46 SYNDROME-SKIN PEELS clindamycin Allergy See Verified 01/02/17 14:46 Comments Oxycodone AdvReac Severe Unresponsiv Verified 01/02/17 14:46 e Laboratory Last Values WBC 5.0 K/mcL (4.3-11.1) D 01/04/17 05:51 RBC 6.56 M/mcL (4.19-5.50) H 01/04/17 05:51 Hgb 17.4 g/dL (12.9-16.9) H 01/04/17 05:51 Hct 54.2 % (37.5-50.1) H 01/04/17 05:51 MCV 82.6 fL (83.0-100.0) L 01/04/17 05:51 MCH 26.5 pg (28.0-33.3) L 01/04/17 05:51 MCHC 32.1 g/dL (31.6-35.5) 01/04/17 05:51 RDW 18.3 % (11.5-14.5) H 01/04/17 05:51 Plt Count 86 K/mcL (140-400) L 01/04/17 05:51 MPV 10.8 fL (9.4-12.4) 01/04/17 05:51 Immature Gran % 0.4 % (0-4) 01/04/17 05:51 Seg Neutrophils % 82.0 % 01/04/17 05:51 Lymphocytes % 15.4 % 01/04/17 05:51 Monocytes % 1.8 % 01/04/17 05:51 Eosinophils % 0.2 % 01/04/17 05:51 Basophils % 0.2 % 01/04/17 05:51 Neutrophils # 4.1 K/mcL (1.6-8.9) 01/04/17 05:51 Lymphocytes # 0.8 K/mcL (0.6-4.6) 01/04/17 05:51 Monocytes # 0.1 K/mcL (0.0-1.3) 01/04/17 05:51 Eosinophils # 0.0 K/mcL (0.0-0.6) 01/04/17 05:51 Basophils # 0.0 K/mcL (0.0-0.2) 01/04/17 05:51 Platelet Estimate Decreased (Normal) L 01/04/17 05:51 Immature Plt Fraction 5.1 % (1.1-6.1) 01/04/17 05:51 Polychromasia 1+ (Not Present) A 01/04/17 05:51 Macrocytosis Present (Not Present) A 01/04/17 05:51 PT 20.4 Seconds (9.4-12.1) H 01/03/17 05:55 INR 1.9 01/03/17 05:55 APTT 42.7 Seconds (26.0-36.0) H 01/03/17 05:55 ABG pH 7.41 pH Units (7.32-7.45) 01/02/17 20:46 ABG pCO2 46 mmHg (35-45) H 01/02/17 20:46 ABG pO2 68 mmHg (85-104) L 01/02/17 20:46 ABG HCO3 29.2 mEQ/L (21-27) H 01/02/17 20:46 ABG Total CO2 30.6 mEq/L (20-26) H 01/02/17 20:46 ABG O2 Saturation 93 % (95-98) L 01/02/17 20:46 ABG Base Excess 3.6 mEq/L (-2.0 to 3.0) H 01/02/17 20:46 VBG pH 7.37 pH Units (7.32-7.42) 01/03/17 05:55 VBG pCO2 53 mmHg (41-51) H 01/03/17 05:55 VBG pO2 49 mmHg (25-40) H 01/03/17 05:55 VBG HCO3 30.6 mEq/L (21-27) H 01/03/17 05:55 Blood Gas Modality [facility] 01/02/17 20:46 Inspired O2 28 % 01/02/17 20:46 Sodium 139 mEq/L (136-145) 01/04/17 05:51 Potassium 4.1 mEq/L (3.5-4.5) 01/04/17 05:51 Chloride 105 mEq/L (98-109) 01/04/17 05:51 Carbon Dioxide 25 mEq/L (19-29) 01/04/17 05:51 BUN 13 mg/dL (8-26) 01/04/17 05:51 Creatinine 1.00 mg/dL (0.72-1.25) 01/04/17 05:51 Est GFR ( Amer) > 60 (> 60) 01/04/17 05:51 Est GFR (Non-Af Amer) > 60 (> 60) 01/04/17 05:51 BUN/Creatinine Ratio 13 (6-26) 01/04/17 05:51 Glucose 179 mg/dL (70-99) H 01/04/17 05:51 POC Glucose 176 (58-89) H 01/05/17 16:08 Calculated Osmolality 293 (280-300) 01/04/17 05:51 Lactic Acid 0.8 mmol/L (0.5-2.2) 01/03/17 05:55 Calcium 8.5 mg/dL (8.6-10.8) L 01/04/17 05:51 Ionized Calcium 1.09 mmol/L (1.15-1.35) L 01/03/17 05:55 Phosphorus 2.6 mg/dL (2.3-4.7) 01/03/17 05:55 Magnesium 1.8 mg/dL (1.6-2.6) 01/04/17 05:51 Total Bilirubin 0.7 mg/dL (0.2-1.2) 01/03/17 05:55 AST 23 Units/L (5-34) 01/03/17 05:55 ALT 12 Units/L (0-55) 01/03/17 05:55 Alkaline Phosphatase 72 Units/L (38-126) 01/03/17 05:55 Troponin I 0.01 ng/mL (0-0.03) 01/03/17 22:14 C-Reactive Protein 23 mg/L (Less than 5) H 01/03/17 05:55 B-Natriuretic Peptide 84 pg/mL (0-100) 01/02/17 17:51 Serum Total Protein 5.9 g/dL (6.0-8.3) L 01/03/17 05:55 Albumin 3.1 g/dL (3.5-5.0) L 01/03/17 05:55 Globulin 2.8 g/dL (2.4-3.5) 01/03/17 05:55 Albumin/Globulin Ratio 1.1 (1.1-2.2) 01/03/17 05:55 Procalcitonin 0.11 ng/mL (<=0.10) H 01/03/17 05:55 Urine Color Yellow (Yellow) 01/02/17 18:00 Urine Clarity Clear (Clear) 01/02/17 18:00 Urine pH 6.0 pH Units (5.0-8.0) 01/02/17 18:00 Ur Specific Chloe 1.011 (1.010-1.025) 01/02/17 18:00 Urine Protein Negative mg/dL (Neg-Trace) 01/02/17 18:00 Urine Glucose (UA) Normal mg/dL (Normal) 01/02/17 18:00 Urine Ketones Negative mg/dL (Negative) 01/02/17 18:00 Urine Blood Trace (Negative) H 01/02/17 18:00 Urine Nitrite Negative (Negative) 01/02/17 18:00 Urine Bilirubin Negative (Negative) 01/02/17 18:00 Urine Urobilinogen Normal mg/dL (Normal) 01/02/17 18:00 Ur Leukocyte Esterase Negative (Negative) 01/02/17 18:00 Urine Microscopic RBC 0-3 per hpf (0-3) 01/02/17 18:00 Urine Microscopic WBC 0-3 per hpf (0-3) 01/02/17 18:00 Ur Squamous Epith Cells Moderate per lpf (None-Few) H 01/02/17 18:00 Urine Bacteria None Seen per hpf (None-Few) 01/02/17 18:00 Hyaline Casts None Seen per lpf (None-Few) 01/02/17 18:00 Ur Culture Indicated? NO (NO) 01/02/17 18:00 - ABG Interpretation ABG results: 01/03/17 05:55 VBG pH 7.37 VBG pCO2 53 H VBG pO2 49 H VBG HCO3 30.6 H - EKG Data EKG comments: 01/09/17 04:26 Chest X-Ray 01/02/17 15:51 IMPRESSION: 1. Stable low lung volumes with bibasilar atelectasis. D/ / Alexis Luis MD / Alexis Luis MD Interpreting Provider: Alexis Luis MD Abdomen/Pelvis CT 01/02/17 18:36 IMPRESSION: 1. Central atelectasis in the right middle and bilateral lower lobes with scattered ground-glass opacities in the upper lobes. Pattern may represent ARDS or pulmonary edema. Aspiration or pneumonitis would be considered less likely. 2. Mild mucosal thickening of the bladder. This may be due to nondistention. Underlying cystitis cannot be excluded. 3. No other significant findings are detected throughout. D/ / Andrew Malcolm MD / Andrew Malcolm MD Interpreting Provider: Andrew Malcolm MD Chest CT 01/02/17 18:36 IMPRESSION: 1. Central atelectasis in the right middle and bilateral lower lobes with scattered ground-glass opacities in the upper lobes. Pattern may represent ARDS or pulmonary edema. Aspiration or pneumonitis would be considered less likely. 2. Mild mucosal thickening of the bladder. This may be due to nondistention. Underlying cystitis cannot be excluded. 3. No other significant findings are detected throughout. D/ / Andrew Malcolm MD / Andrew Malcolm MD Interpreting Provider: Andrew Malcolm MD - Attending Attestation My signature below is to certify that this patient is under my care and that I, or the Resident Physician working with me, has had a [id number] encounter with this patient. Care Plan has been reviewed and discussed in detail with the patient and family. Questions addressed. Advance care directive discussions briefly addressed. The patient does not declare any healthcare restrictions at this time. Outpatient medication schedules will be reviewed, confirmed and facilitated as appropriate. Reconciliation of home treatments including adjustments, substitutions and reintroduction into the treatment regimen will address necessary maintenance therapies for chronic pre-existing medical conditions. Smoking cessation counseling briefly addressed. The patient declares self a former heavy smoker. Hospital course depended upon the clinical findings, treatment response and potential consultation interventions. The patient is at risk for acute clinical decline and morbidity in this presenting chief complaint, findings and associated comorbidities. Condition is serious. Prognosis is guarded. CODE STATUS is full.
[2017-01-03] MEDS ORDERED: 0.9 % Sodium Chloride 1,000 ML IVC ONE (01:23)
[2017-01-03] MEDS ORDERED: Ondansetron ODT 4 MG TAB.RAPDIS SL PRN (01:30)
[2017-01-03] MEDS ORDERED: Acetaminophen 325 MG TABLET PO PRN (01:30)
[2017-01-03] MEDS ORDERED: Naloxone 0.4 MG/ML INJ IVP PRN (01:30)
[2017-01-03] MEDS ORDERED: D5% in Water 1,000 ML IV PRN (01:33)
[2017-01-03] MEDS ORDERED: Dextrose Gel 15 GM PO PRN ×2 (01:33)
[2017-01-03] MEDS ORDERED: *HR* Dextrose 50 % in Water (Syg) 50 ML SYRINGE IVP PRN (01:33)
[2017-01-03] MEDS ORDERED: *HR* Morphine 2 MG/ML SYRINGE IVP PRN ×2 (02:23→15:35)
[2017-01-03] MEDS ORDERED: *HR* OxyCODONE Immed Rel 5 MG TABLET PO PRN (02:23)
[2017-01-03] MEDS ORDERED: Ondansetron 4 MG/2 ML VIAL IVP PRN (02:23)
[2017-01-03] MEDS ORDERED: Nitroglycerin 0.4 MG TAB.SUBL SL PRN (02:29)
[2017-01-03] MEDS ORDERED: Benzonatate 100 MG CAPSULE PO PRN (02:35)
[2017-01-03] MEDS ORDERED: Acetylcysteine 10% 2 ML INHSOL IH SCH (02:45)
[2017-01-03] MEDS: Azithromycin 500 MG in D5% in Water 250 ML IVPB SCH (02:58)
[2017-01-03] MEDS: 0.9 % Sodium Chloride 1,000 ML IVC SCH ×2 (02:58→15:12)
[2017-01-03 06:06] LABS: VBG HCO3 30.6 mEq/L (21-27); VBG PH 7.37 pH Units (7.32-7.42)
[2017-01-03 06:09] LABS: Eosinophils % 0.4 %; Hemoglobin 16.3 g/dL (12.9-16.9); Immature Granulocytes % 0.4 % (0-4); Red Cell Distribution Width 18.5 % (11.5-14.5)
[2017-01-03 06:11] LABS: Basophils % 1.1 %; Hematocrit 50.5 % (37.5-50.1); Immature Platelets 3.4 % (1.1-6.1); Lymphocytes # 0.7 K/mcL (0.6-4.6); Lymphocytes % 25.9 %; Mean Corpuscular HGB Conc 32.3 g/dL (31.6-35.5); Mean Corpuscular Hemoglobin 27.3 pg (28.0-33.3); Mean Corpuscular Volume 84.6 fL (83.0-100.0); Mean Platelet Volume 9.8 fL (9.4-12.4); Monocytes # 0.4 K/mcL (0.0-1.3); Monocytes % 13.5 %; Red Blood Count 5.97 M/mcL (4.19-5.50); Segmented Neutrophils % 58.7 %
[2017-01-03 06:13] LABS: Ionized Calcium 1.09 mmol/L (1.15-1.35)
[2017-01-03 06:15] LABS: INR 1.9; Prothrombin Time 20.4 Seconds (9.4-12.1)
[2017-01-03 06:18] LABS: Activated Partial Thrombo Time 42.7 Seconds (26.0-36.0)
[2017-01-03 06:22] LABS: Alanine Aminotransferase 12 Units/L (0-55); Albumin 3.1 g/dL (3.5-5.0); Albumin/Globulin Ratio 1.1 (1.1-2.2); Alkaline Phosphatase 72 Units/L (38-126); Aspartate Amino Transferase 23 Units/L (5-34); BUN/Creatinine Ratio 14 (6-26); Bilirubin,Total 0.7 mg/dL (0.2-1.2); Blood Urea Nitrogen 15 mg/dL (8-26); C-Reactive Protein 23 mg/L (Less than 5); Calcium 8.1 mg/dL (8.6-10.8); Carbon Dioxide 27 mEq/L (19-29); Chloride 104 mEq/L (98-109); Globulin 2.8 g/dL (2.4-3.5); Glucose 109 mg/dL (70-99); Magnesium 1.5 mg/dL (1.6-2.6); Osmolality,Calculated 285 (280-300); Phosphorous 2.6 mg/dL (2.3-4.7); Potassium 3.6 mEq/L (3.5-4.5); Sodium 137 mEq/L (136-145); Total Protein 5.9 g/dL (6.0-8.3); eGFR For African Americans > 60 (> 60); eGFR For Non-African Americans > 60 (> 60)
[2017-01-03 06:39] LABS: Neutrophils # 1.6 K/mcL (1.6-8.9); Platelet Count 80 K/mcL (140-400)
[2017-01-03] MEDS ORDERED: Meropenem 1,000 MG in 0.9 % Sodium Chloride Mini Bag 100 ML IVPB SCH (08:00)
--- NOTE | 2017-01-03 08:12 | Internal Med Progress Note ---
Date of Encounter: 01/03/17 Time of Encounter: 08:09 - Assessment and plan (1) Severe sepsis Current Visit: Yes Status: Acute Assessment and plan: Patient likely has sepsis related to bilateral upper lobe pneumonia. Given his underlying immunosuppression, multiple antibiotic allergies, POEMS disease, requires inpatient admission for IV antibiotics. He is noted to have elevated PT/INR, however review of previous labs show he has had this for a long time and this is less likely a result of severe sepsis. Continue IV hydration, IV antibiotics. Monitor vital signs and urine output closely. Lactic acid noted to be normal. (2) Community acquired pneumonia Current Visit: Yes Status: Acute Assessment and plan: CT chest shows bilateral upper and lower groundglass opacities along with atelectasis of right middle lobe and bilateral lower lobes. Possible underlying pneumonia. Continue broad-spectrum IV antibiotics-Zyvox, meropenem and azithromycin given his multiple allergies to antibiotics. Continue IV hydration, supportive care. Noted to be requiring high flow oxygen via tracheostomy mask. High risk patient due to underlying immunosuppression. (3) COPD (chronic obstructive pulmonary disease) Current Visit: Yes Status: Acute Assessment and plan: Noted to have mild acute exacerbation. Start scheduled along with as needed breathing treatments. Continue inhaled corticosteroids. He does have underlying immunosuppression but will start short-term course of steroids due to active wheezing and difficulty breathing and hypoxia. Continue supportive care. 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 Continue tracheostomy care. (5) Atrial fibrillation Current Visit: Yes Status: Chronic Assessment and plan: Currently rate controlled. Continue metoprolol. 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 Receives monthly IVIG injections. (7) Diabetes mellitus Current Visit: Yes Status: Chronic Assessment and plan: Accu-Chek blood glucose monitoring with sliding scale insulin. Check hemoglobin A1c. 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 Continues to have a hacking cough, productive with yellowish tracheal secretions. No fever spikes overnight. No chest pain, nausea or vomiting. Reports some vague upper abdominal pain. - Constitutional Vitals: Temp Pulse Resp BP Pulse Ox 99.2 F 75 16 109/68 95 01/03/17 06:44 01/03/17 06:44 01/03/17 06:44 01/03/17 06:44 01/03/17 06:44 General appearance: Present: A&O X 3, answers questions appropriately - Head Head exam: Present: atraumatic, normocephalic - Neck Neck exam general surgery: Present: supple, trachea midline. Absent: lymphadenopathy Additional comments: Status post tracheostomy, on trach mask - Respiratory Respiratory exam: Present: wheezes (Bilateral coarse breath sounds with posterior end expiratory wheezing). Absent: accessory muscle use, rales, rhonchi - Cardiovascular Cardiovascular exam: Present: RRR, +S1, +S2. Absent: diastolic murmur, gallop, rubs, systolic murmur - GI/Abdominal GI/Abdominal exam: Present: normal bowel sounds, soft, no peritoneal signs. Absent: distended, tenderness - Extremities Exam Extremities exam: Present: full ROM, warm, radial pulses palpable and symetrical. Absent: calf tenderness, cyanotic, pedal edema - Neurological Exam Neurological exam: Present: CN II-XII intact, oriented X3, no focal deficits. Absent: pronater drift, facial droop, speech deficit - Skin Skin exam: Present: dry, intact Internal Medicine: Result - Labs CBC & Chem 7: 01/03/17 05:55 01/03/17 05:55 Labs: Short CBC 01/03/17 Range/Units 05:55 WBC 2.8 L (4.3-11.1) K/mcL Hgb 16.3 (12.9-16.9) g/dL Hct 50.5 H (37.5-50.1) % Plt Count 80 L (140-400) K/mcL Neutrophils # 1.6 (1.6-8.9) K/mcL BMP 01/03/17 05:55 Sodium 137 Potassium 3.6 Chloride 104 Carbon Dioxide 27 BUN 15 Creatinine 1.11 Glucose 109 H Calcium 8.1 L Cardiac Enzymes 01/03/17 Range/Units 05:55 Troponin I 0.01 (0-0.03) ng/mL Liver Function 01/03/17 Range/Units 05:55 Total Bilirubin 0.7 (0.2-1.2) mg/dL AST 23 (5-34) Units/L ALT 12 (0-55) Units/L Alkaline Phosphatase 72 (38-126) Units/L Albumin 3.1 L (3.5-5.0) g/dL - ABG Interpretation ABG results: ABG ABG pH 7.41 pH Units (7.32-7.45) 01/02/17 20:46 ABG pCO2 46 mmHg (35-45) H 01/02/17 20:46 ABG pO2 68 mmHg (85-104) L 01/02/17 20:46 ABG O2 Saturation 93 % (95-98) L 01/02/17 20:46 PT/INR, D-dimer PT 20.4 Seconds (9.4-12.1) H 01/03/17 05:55 Consult Discharge Plan - Plan Referrals: Ruy Rollins MD [Primary Care Provider] -
[2017-01-03] MEDS ORDERED: Albuterol 2.5 MG/3 ML NEBULIZER IH PRN (08:21)
[2017-01-03] MEDS ORDERED: Famotidine 20 MG TABLET PO SCH (09:00)
[2017-01-03] MEDS: APIXABAN 5 MG TABLET PO SCH ×2 (09:15→21:50)
[2017-01-03] MEDS: *HR* Digoxin 0.25 MG TABLET PO SCH (09:15)
[2017-01-03] MEDS: Aspirin 81 MG TAB.CHEW PO SCH (09:15)
[2017-01-03] MEDS: Furosemide 40 MG TABLET PO SCH ×2 (09:15→21:50)
[2017-01-03] MEDS: Gabapentin 400 MG CAPSULE PO SCH ×3 (09:16→21:51)
[2017-01-03] MEDS: Metoprolol 100 MG TABLET PO SCH ×2 (09:16→21:51)
[2017-01-03] MEDS: Fluticasone Propionate Nasal 50 MCG/SPRAY BOTTLE NS SCH (09:16)
[2017-01-03] MEDS: Insulin LISPRO 300 UNITS/3 ML VIAL SQ SCH ×7 (09:16→21:30)
[2017-01-03] MEDS: MethylPREDNISolone 40 MG/ML VIAL IVP SCH ×3 (09:16→23:43)
[2017-01-03] MEDS ORDERED: Magnesium Sulfate 2 GM in D5% in Water 100 ML IVPB ONE (09:59)
[2017-01-03] MEDS: Ipratropium/Albuterol Neb 3 ML IH SCH ×3 (10:42→22:29)
[2017-01-03] MEDS: Acetylcysteine 10% 2 ML INHSOL IH SCH ×3 (10:43→22:29)
[2017-01-03] MEDS: Cefepime HCl 2,000 MG in D5% in Water (Mini-Bag+) 100 ML IVPB SCH (17:17)
--- NOTE | 2017-01-03 19:46 | Electrocardiograph Report ---
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
[2017-01-03] MEDS: Loratadine 10 MG TABLET PO SCH (21:50)
[2017-01-04] MEDS: 0.9 % Sodium Chloride 1,000 ML IVC SCH ×3 (01:50→20:42)
[2017-01-04] MEDS: Azithromycin 500 MG in D5% in Water 250 ML IVPB SCH (01:50)
[2017-01-04] MEDS: Ipratropium/Albuterol Neb 3 ML IH SCH ×4 (04:49→22:42)
[2017-01-04] MEDS: Acetylcysteine 10% 2 ML INHSOL IH SCH ×4 (04:49→22:43)
[2017-01-04] MEDS: Cefepime HCl 2,000 MG in D5% in Water (Mini-Bag+) 100 ML IVPB SCH ×2 (05:02→16:43)
[2017-01-04 06:14] LABS: BUN/Creatinine Ratio 13 (6-26); Blood Urea Nitrogen 13 mg/dL (8-26); Calcium 8.5 mg/dL (8.6-10.8); Carbon Dioxide 25 mEq/L (19-29); Chloride 105 mEq/L (98-109); Glucose 179 mg/dL (70-99); Magnesium 1.8 mg/dL (1.6-2.6); Osmolality,Calculated 293 (280-300); Potassium 4.1 mEq/L (3.5-4.5); Sodium 139 mEq/L (136-145); eGFR For African Americans > 60 (> 60); eGFR For Non-African Americans > 60 (> 60)
[2017-01-04 06:16] LABS: Basophils % 0.2 %; Immature Granulocytes % 0.4 % (0-4); Mean Corpuscular Hemoglobin 26.5 pg (28.0-33.3)
[2017-01-04 06:18] LABS: Eosinophils % 0.2 %; Hematocrit 54.2 % (37.5-50.1); Hemoglobin 17.4 g/dL (12.9-16.9); Immature Platelets 5.1 % (1.1-6.1); Lymphocytes # 0.8 K/mcL (0.6-4.6); Lymphocytes % 15.4 %; Mean Corpuscular HGB Conc 32.1 g/dL (31.6-35.5); Mean Corpuscular Volume 82.6 fL (83.0-100.0); Mean Platelet Volume 10.8 fL (9.4-12.4); Monocytes # 0.1 K/mcL (0.0-1.3); Monocytes % 1.8 %; Neutrophils # 4.1 K/mcL (1.6-8.9); Red Blood Count 6.56 M/mcL (4.19-5.50); Red Cell Distribution Width 18.3 % (11.5-14.5)
[2017-01-04 06:28] LABS: Platelet Count 86 K/mcL (140-400)
[2017-01-04 07:08] LABS: Platelet Estimate Decreased (Normal)
[2017-01-04 07:10] LABS: Macrocytosis Present (Not Present); Polychromasia 1+ (Not Present)
[2017-01-04] MEDS: Insulin LISPRO 300 UNITS/3 ML VIAL SQ SCH ×6 (07:53→20:47)
[2017-01-04] MEDS: Aspirin 81 MG TAB.CHEW PO SCH (07:54)
[2017-01-04] MEDS: MethylPREDNISolone 40 MG/ML VIAL IVP SCH ×3 (07:54→21:00)
[2017-01-04] MEDS: Metoprolol 100 MG TABLET PO SCH ×2 (07:54→20:58)
[2017-01-04] MEDS: Furosemide 40 MG TABLET PO SCH ×2 (07:54→20:58)
[2017-01-04] MEDS: Gabapentin 400 MG CAPSULE PO SCH ×3 (07:54→20:59)
[2017-01-04] MEDS: *HR* Digoxin 0.25 MG TABLET PO SCH (07:55)
[2017-01-04] MEDS: APIXABAN 5 MG TABLET PO SCH ×2 (07:55→20:59)
[2017-01-04] MEDS: Fluticasone Propionate Nasal 50 MCG/SPRAY BOTTLE NS SCH (07:56)
--- NOTE | 2017-01-04 07:59 | Internal Med Progress Note ---
Date of Encounter: 01/04/17 Time of Encounter: 07:56 - Assessment and plan (1) Severe sepsis Current Visit: Yes Status: Ruled-out Assessment and plan: Patient likely has sepsis related to bilateral upper lobe pneumonia, and not severe sepsis. Given his underlying immunosuppression, multiple antibiotic allergies, POEMS disease, requires inpatient admission for IV antibiotics. He is noted to have elevated PT/INR, however review of previous labs show he has had this for a long time and this is less likely a result of severe sepsis. Continue IV hydration, IV antibiotics. Monitor vital signs and urine output closely. Lactic acid noted to be normal. (2) Community acquired pneumonia Current Visit: Yes Status: Acute Assessment and plan: CT chest shows bilateral upper and lower groundglass opacities along with atelectasis of right middle lobe and bilateral lower lobes. Possible underlying pneumonia. Blood cultures remain negative so far; sputum preliminary culture grows gram negative rods, presumed Pseudomonas; continue IV Cefepime (changed from Meropenem yesterday) and Zithromax; hold Zyvox. Continue IV hydration, supportive care. Noted to be requiring 8L/min via tracheostomy mask. High risk patient due to underlying immunosuppression. (3) COPD (chronic obstructive pulmonary disease) Current Visit: Yes Status: Acute Assessment and plan: Noted to have mild acute exacerbation. Improving. Continue scheduled along with as needed breathing treatments. Continue inhaled corticosteroids. Taper down IV steroids as tolerated. Continue supportive care. 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 Continue tracheostomy care. (5) Atrial fibrillation Current Visit: Yes Status: Chronic Assessment and plan: Currently rate controlled. Continue metoprolol. 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 Blood sugars noted to be well-controlled. 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 Absent: accessory muscle use, rales, rhonchi, wheezes - Cardiovascular Cardiovascular exam: Present: RRR, +S1, +S2. Absent: diastolic murmur, gallop, rubs, systolic murmur - GI/Abdominal GI/Abdominal exam: Present: normal bowel sounds, soft, no peritoneal signs. Absent: distended, tenderness Internal Medicine: Result - Labs CBC & Chem 7: 01/04/17 05:51 01/04/17 05:51 Labs: Short CBC 01/04/17 Range/Units 05:51 WBC 5.0 D (4.3-11.1) K/mcL Hgb 17.4 H (12.9-16.9) g/dL Hct 54.2 H (37.5-50.1) % Plt Count 86 L (140-400) K/mcL Neutrophils # 4.1 (1.6-8.9) K/mcL BMP 01/04/17 05:51 Sodium 139 Potassium 4.1 Chloride 105 Carbon Dioxide 25 BUN 13 Creatinine 1.00 Glucose 179 H Calcium 8.5 L Cardiac Enzymes 01/03/17 01/03/17 Range/Units 13:47 22:14 Troponin I 0.00 0.01 (0-0.03) ng/mL - ABG Interpretation ABG results: ABG ABG pH 7.41 pH Units (7.32-7.45) 01/02/17 20:46 ABG pCO2 46 mmHg (35-45) H 01/02/17 20:46 ABG pO2 68 mmHg (85-104) L 01/02/17 20:46 ABG O2 Saturation 93 % (95-98) L 01/02/17 20:46 PT/INR, D-dimer PT 20.4 Seconds (9.4-12.1) H 01/03/17 05:55 Consult Discharge Plan - Plan Referrals: Ruy Rollins MD [Primary Care Provider] - 01/11/17 11:30 am
[2017-01-04] MEDS: Insulin DETEMIR 100 UNIT/ML X5UNITS SQ SCH (20:58)
[2017-01-04] MEDS: Loratadine 10 MG TABLET PO SCH (21:00)
[2017-01-05] MEDS: Azithromycin 500 MG in D5% in Water 250 ML IVPB SCH (02:12)
[2017-01-05] MEDS: 0.9 % Sodium Chloride 1,000 ML IVC SCH (04:00)
[2017-01-05] MEDS: Cefepime HCl 2,000 MG in D5% in Water (Mini-Bag+) 100 ML IVPB SCH (04:00)
[2017-01-05] MEDS: Ipratropium/Albuterol Neb 3 ML IH SCH ×3 (04:53→16:15)
[2017-01-05] MEDS: Acetylcysteine 10% 2 ML INHSOL IH SCH (04:53)
[2017-01-05] MEDS: Insulin LISPRO 300 UNITS/3 ML VIAL SQ SCH ×3 (08:13→16:11)
[2017-01-05] MEDS: MethylPREDNISolone 40 MG/ML VIAL IVP SCH (08:51)
[2017-01-05] MEDS: *HR* Digoxin 0.25 MG TABLET PO SCH (08:52)
[2017-01-05] MEDS: Aspirin 81 MG TAB.CHEW PO SCH (08:52)
[2017-01-05] MEDS: Gabapentin 400 MG CAPSULE PO SCH ×2 (08:53→16:11)
[2017-01-05] MEDS: Metoprolol 100 MG TABLET PO SCH (08:53)
[2017-01-05] MEDS: Insulin DETEMIR 100 UNIT/ML X5UNITS SQ SCH (08:53)
[2017-01-05] MEDS: APIXABAN 5 MG TABLET PO SCH (08:53)
[2017-01-05] MEDS: Furosemide 40 MG TABLET PO SCH (08:53)
[2017-01-05] MEDS: Fluticasone Propionate Nasal 50 MCG/SPRAY BOTTLE NS SCH (08:54)
--- NOTE | 2017-01-05 09:15 | Internal Med Progress Note ---
Date of Encounter: 01/05/17 Time of Encounter: 09:13 - Assessment and plan (1) Severe sepsis Current Visit: Yes Status: Ruled-out (2) Community acquired pneumonia Current Visit: Yes Status: Acute Assessment and plan: CT chest shows bilateral upper and lower groundglass opacities along with atelectasis of right middle lobe and bilateral lower lobes. Possible underlying pneumonia. Blood cultures remain negative so far; sputum culture grows Pseudomonas, resistant to fluoroquinolones; continue IV Cefepime- day 3 to complete a 14-day course. Hold Zithromax; continue supportive care. Noted to be requiring 5L/min via tracheostomy mask. Patient requires 11 days of IV antibiotics; rn social work consult for home health infusion arrangements; (3) COPD (chronic obstructive pulmonary disease) Current Visit: Yes Status: Acute Assessment and plan: Noted to have mild acute exacerbation. Improving. Continue scheduled along with as needed breathing treatments. Continue inhaled corticosteroids. Change steroids to oral steroids. Continue supportive care. 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 Continue metoprolol. 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 (7) Diabetes mellitus Current Visit: Yes Status: Chronic Qualifiers: Diabetes mellitus type: type 2 Diabetes mellitus complication status: without complication Diabetes mellitus [facility] insulin use: without rodent exterminator use Qualified Code(s): E11.9 - Type 2 diabetes mellitus without complications (8) Hypertension Current Visit: Yes Status: Chronic Qualifiers: Hypertension type: essential hypertension Qualified Code(s): I10 - Essential (primary) hypertension (9) Hypothyroidism Current Visit: Yes Status: Chronic Qualifiers: Hypothyroidism type: unspecified Qualified Code(s): E03.9 - Hypothyroidism , unspecified (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 Absent: accessory muscle use, rales, rhonchi, wheezes - Cardiovascular Cardiovascular exam: Present: RRR, +S1, +S2. Absent: diastolic murmur, gallop, rubs, systolic murmur - GI/Abdominal GI/Abdominal exam: Present: normal bowel sounds, soft, no peritoneal signs. Absent: distended, tenderness Internal Medicine: Result - Labs CBC & Chem 7: 01/04/17 05:51 01/04/17 05:51 - ABG Interpretation ABG results: ABG ABG pH 7.41 pH Units (7.32-7.45) 01/02/17 20:46 ABG pCO2 46 mmHg (35-45) H 01/02/17 20:46 ABG pO2 68 mmHg (85-104) L 01/02/17 20:46 ABG O2 Saturation 93 % (95-98) L 01/02/17 20:46 PT/INR, D-dimer PT 20.4 Seconds (9.4-12.1) H 01/03/17 05:55 Consult Discharge Plan - Plan Referrals: Ruy Rollins MD [Primary Care Provider] - 01/11/17 11:30 am
[2017-01-05] MEDS ORDERED: predniSONE 20 MG TABLET PO SCH (09:30)
[2017-01-05 14:51] VITALS: BP 99/64
[2017-01-05] MEDS ORDERED: Cefepime HCl 2,000 MG in D5% in Water (Mini-Bag+) 100 ML IVPB SCH (16:00)
--- NOTE | 2017-01-05 18:08 | Discharge Summary ---
Date of Encounter: 01/05/17 Time of Encounter: 18:04 - Discharge Diagnosis (1) Severe sepsis Priority: Primary Status: Ruled-out (2) Community acquired pneumonia Priority: Primary Status: Acute (3) COPD (chronic obstructive pulmonary disease) Priority: Primary Status: Acute Qualifiers: COPD type: chronic bronchitis Chronic bronchitis type: unspecified Qualified Code(s): J42 - Unspecified chronic bronchitis (4) Tracheostomy dependent Priority: Secondary Status: Chronic (5) Atrial fibrillation Priority: Secondary Status: Chronic Qualifiers: Atrial fibrillation type: chronic Qualified Code(s): I48.2 - Chronic atrial fibrillation (6) Castleman disease Priority: Secondary Status: Chronic (7) Diabetes mellitus Priority: Secondary Status: Chronic Qualifiers: Diabetes mellitus type: type 2 Diabetes mellitus complication status: without complication Diabetes mellitus termite inspector insulin use: without alf use Qualified Code(s): E11.9 - Type 2 diabetes mellitus without complications (8) Hypertension Priority: Secondary Status: Chronic Qualifiers: Hypertension type: essential hypertension Qualified Code(s): I10 - Essential (primary) hypertension (9) Hypothyroidism Priority: Secondary Status: Chronic Qualifiers: Hypothyroidism type: unspecified Qualified Code(s): E03.9 - Hypothyroidism , unspecified (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 Priority: Secondary Status: Chronic - Discharge Medications Prescriptions: Benzonatate [Tessalon] 100 mg PO TID PRN #30 capsule PRN Reason: Cough Cefepime HCl/Dextrose, Iso-Osm [Cefepime 1 gm Injection] 1 gm IV Q12H 11 Days PredniSONE 40 mg PO DAILY 6 Days Home Medications: Allopurinol [Zyloprim] 100 mg PO BID 07/05/15 [History] Apixaban [Eliquis] 5 mg PO BID #0 07/05/15 [History] Budesonide/Formoterol 160/4.5 [Symbicort] 2 puff IH BIDR 07/05/15 [History] Digoxin [Lanoxin] 250 mcg PO QAM 07/05/15 [History] Fluticasone Propionate Nasal [Flonase] 50 mcg NS DAILY 07/05/15 [History] Furosemide [Lasix] 40 mg PO BID 07/05/15 [History] Loratadine [Claritin] 10 mg PO HS 07/05/15 [History] Pioglitazone [Actos] 45 mg PO QAM 07/05/15 [History] Potassium Chloride 20 meq PO QAM 07/05/15 [History] Simvastatin [Zocor] 20 mg PO HS 07/05/15 [History] Aspirin 81 mg PO QAM 07/21/15 [History] Gabapentin [Neurontin] 800 mg PO TID 07/21/15 [History] Metoprolol [Lopressor] 100 mg PO BID 07/21/15 [History] Nitroglycerin 0.4 mg SL Q5MIN PRN 07/21/15 [History] Tamsulosin [Flomax] 0.4 mg PO QAM 07/21/15 [History] Albuterol Sulfate [Albuterol Inhaler] 2 puff IH Q6HR PRN #2 inhaler 11/30/15 [Rx ] Tiotropium [Spiriva] 18 mcg IH DAILY 01/12/16 [History] Albuterol Neb [Proventil Neb] 2.5 mg IH TID 01/27/16 [History] Morphine Sulfate 15 mg PO Q4H PRN 01/27/16 [History] Levothyroxine [Synthroid] 88 mcg PO QAM #30 tablet 04/17/16 [Rx] GuaiFENesin/Codeine [ROBITUSSIN w/CODEINE] 5 ml PO Q6HR PRN #200 ml 09/26/16 [Rx ] Ergocalciferol (VITAMIN D2) [Vitamin D2 (50,000 UNIT)] 50,000 unit PO BARR [History] Benzonatate [Tessalon] 100 mg PO TID PRN #30 capsule 01/05/17 [Rx] Cefepime HCl/Dextrose, Iso-Osm [Cefepime 1 gm Injection] 1 gm IV Q12H 11 Days [Rx] PredniSONE 40 mg PO DAILY 6 Days 01/05/17 [Rx] Allergies/Adverse Reactions: Allergies Amoxicillin Allergy (Mild, Verified 01/02/17 14:46) Rash ampicillin Allergy (Mild, Verified 01/02/17 14:46) Rash cefazolin Allergy (Mild, Verified 01/02/17 14:46) Rash cephalexin [From Keflex] Allergy (Mild, Verified 01/02/17 14:46) Rash levofloxacin [From Levaquin] Allergy (Mild, Verified 01/02/17 14:46) Blister Penicillins Allergy (Mild, Verified 01/02/17 14:46) Rash pramipexole [From Mirapex] Allergy (Mild, Verified 01/02/17 14:46) Rash Sulfa (Sulfonamide Antibiotics) Allergy (Mild, Verified 01/02/17 14:46) Rash vancomycin Allergy (Mild, Verified 01/02/17 14:46) [employer] clindamycin Allergy (Verified 01/02/17 14:46) See Comments Oxycodone Adverse Reaction (Severe, Verified 01/02/17 14:46) Unresponsive Date of admission: 01/03/17 02:48 Primary care physician: Ruy Rollins MD Discharging clinician: Pamella Hill Anticipated date of discharge: 01/05/17 - Patient Status Disposition: Home Health Service Condition: Good Functional capacity at discharge: independent ambulation Overall status at discharge: patient is progressing back to baseline - Discharge Instructions Follow Up With: Ruy Rollins MD [Primary Care Provider] - 01/11/17 11:30 am Additional Instructions: Follow-up with hematology/oncology as scheduled - Diet and Activity Activity: resume usual activities as tolerated, wear oxygen at all times Diet: diabetic diet, low fat, low cholesterol, low salt diet Hospital course: Mr. Vogel is a 61 year old male with the above medical problems including multiple medication allergies and severe immune suppression due to Castleman disease, was admitted with worsening cough and shortness of breath and hypoxia. CT chest done in the emergency room showed atelectasis and right middle and bilateral lower lobes along with groundglass opacities in bilateral upper lobes. Patient was also noted to have fever, tachycardia and hypoxemia, and was treated for sepsis. He was started on aggressive IV hydration along with broad-spectrum IV antibiotics given his immunosuppression and supplemental oxygen via trach mask. Patient gradually improved on this regimen. He was also treated for mild exacerbation of COPD with IV steroids and bronchodilators. Blood cultures remain negative. Sputum cultures grew Pseudomonas and patient has been treated with IV cefepime as an inpatient. Given his multiple medication allergies, he is being discharged on IV cefepime with PICC line and home health infusion services to complete his course of antibiotics. Patient was also noted to have elevated PT, INR and PTT and initially this was thought to be due to severe sepsis, however review of patient's previous labs showed baseline coagulopathy, which is likely related to his hematological disorder. Patient Is otherwise medically stable for discharge. - Time Spent with Patient Total time spent providing and/or coordinating discharge services: Greater than 30 minutes (50 min) - Constitutional Vitals: Temp Pulse Resp BP Pulse Ox 97.9 F 73 16 99/64 93 L 01/05/17 14:45 01/05/17 14:45 01/05/17 16:15 01/05/17 14:45 01/05/17 16:15 General appearance: Present: A&O X 3, answers questions appropriately - Respiratory Respiratory exam: Present: CTAB (Coarse breath sounds bilaterally). Absent: accessory muscle use, rales, rhonchi, wheezes - Cardiovascular Cardiovascular exam: Present: RRR, +S1, +S2. Absent: diastolic murmur, gallop, rubs, systolic murmur
--- NOTE | 2017-01-05 18:12 | Physician Discharge Referral ---
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 For more information, call the [place] [employer] Quit Line at 4-543-JURF-NOW. - Diet/Nutrition Diet/Nutrition Orders: Cardiac, No Concentrated Sweets (diabetic) - Activity Activity Orders: Ambulate - Services Needed Following services are medically necessary services: Nursing, Home Infusion ( Cefepime IV through patient's chemotherapy port, 1 g every 12 hourly, for 11 days) - Transfer Medications Prescriptions: Benzonatate [Tessalon] 100 mg PO TID PRN #30 capsule PRN Reason: Cough Cefepime HCl/Dextrose, Iso-Osm [Cefepime 1 gm Injection] 1 gm IV Q12H 11 Days PredniSONE 40 mg PO DAILY 6 Days Home Medications: Allopurinol [Zyloprim] 100 mg PO BID 07/05/15 [History] Apixaban [Eliquis] 5 mg PO BID #0 07/05/15 [History] Budesonide/Formoterol 160/4.5 [Symbicort] 2 puff IH BIDR 07/05/15 [History] Digoxin [Lanoxin] 250 mcg PO QAM 07/05/15 [History] Fluticasone Propionate Nasal [Flonase] 50 mcg NS DAILY 07/05/15 [History] Furosemide [Lasix] 40 mg PO BID 07/05/15 [History] Loratadine [Claritin] 10 mg PO HS 07/05/15 [History] Pioglitazone [Actos] 45 mg PO QAM 07/05/15 [History] Potassium Chloride 20 meq PO QAM 07/05/15 [History] Simvastatin [Zocor] 20 mg PO HS 07/05/15 [History] Aspirin 81 mg PO QAM 07/21/15 [History] Gabapentin [Neurontin] 800 mg PO TID 07/21/15 [History] Metoprolol [Lopressor] 100 mg PO BID 07/21/15 [History] Nitroglycerin 0.4 mg SL Q5MIN PRN 07/21/15 [History] Tamsulosin [Flomax] 0.4 mg PO QAM 07/21/15 [History] Albuterol Sulfate [Albuterol Inhaler] 2 puff IH Q6HR PRN #2 inhaler 11/30/15 [Rx ] Tiotropium [Spiriva] 18 mcg IH DAILY 01/12/16 [History] Albuterol Neb [Proventil Neb] 2.5 mg IH TID 01/27/16 [History] Morphine Sulfate 15 mg PO Q4H PRN 01/27/16 [History] Levothyroxine [Synthroid] 88 mcg PO QAM #30 tablet 04/17/16 [Rx] GuaiFENesin/Codeine [ROBITUSSIN w/CODEINE] 5 ml PO Q6HR PRN #200 ml 09/26/16 [Rx ] Ergocalciferol (VITAMIN D2) [Vitamin D2 (50,000 UNIT)] 50,000 unit PO BARR [History] Benzonatate [Tessalon] 100 mg PO TID PRN #30 capsule 01/05/17 [Rx] Cefepime HCl/Dextrose, Iso-Osm [Cefepime 1 gm Injection] 1 gm IV Q12H 11 Days [Rx] PredniSONE 40 mg PO DAILY 6 Days 01/05/17 [Rx] Allergies/Adverse Reactions: Allergies Amoxicillin Allergy (Mild, Verified 01/02/17 14:46) Rash ampicillin Allergy (Mild, Verified 01/02/17 14:46) Rash cefazolin Allergy (Mild, Verified 01/02/17 14:46) Rash cephalexin [From Keflex] Allergy (Mild, Verified 01/02/17 14:46) Rash levofloxacin [From Levaquin] Allergy (Mild, Verified 01/02/17 14:46) Blister Penicillins Allergy (Mild, Verified 01/02/17 14:46) Rash pramipexole [From Mirapex] Allergy (Mild, Verified 01/02/17 14:46) Rash Sulfa (Sulfonamide Antibiotics) Allergy (Mild, Verified 01/02/17 14:46) Rash vancomycin Allergy (Mild, Verified 01/02/17 14:46) 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 absences from home require considerable and taxing effort and are for medical reasons or samaritan services or infrequently or short duration when for other reasons) because: Homebound Reason: Severity of cardiac or pulmonary status limits activity tolerance Attestation: My signature below is to certify that this patient is under my care and that I, or nurse practitioner, or a physician's hotel assistant general manager working with me, has a face-to -face encounter with this patient.
== END 2017-01-05 19:11 | disposition home health service (06) | DRG 871 ==
LOC: EMEROO 14:42 → 3ANU 14:42
PROVIDERS: ADMIT Family Medicine; ATTEND Internal Medicine

== ENCOUNTER 2017-03-09 11:15 | Inpatient (IN) ==
--- NOTE | 2017-03-09 11:36 | Emergency Department Note ---
Disposition Clinical Impression: Chest pain, Pneumonia Disposition: Admitted As Inpatient Condition: Fair Referrals: NO,PCP [Non-Partnered Physician] - Forms: ED Satisfaction Letter General Adult HPI - General Chief complaint: ED Chest Pain Stated complaint: chest pain/JOSE ALFREDO Time Seen by Provider: 03/09/17 11:18 Source: patient Limitations: no limitations Nursing Notes Reviewed: Yes Vital Signs Reviewed: Yes - History of Present Illness Pain Scale: 9 - Related Data Home Medications Medication Instructions Recorded Confirmed Allopurinol [Zyloprim] 100 mg PO BID 07/05/15 01/31/17 Apixaban [Eliquis] 5 mg PO BID #0 07/05/15 01/31/17 Budesonide/Formoterol 160/4.5 2 puff IH BIDR 07/05/15 01/31/17 [Symbicort] Digoxin [Lanoxin] 250 mcg PO QAM 07/05/15 01/31/17 Fluticasone Propionate Nasal 50 mcg NS DAILY 07/05/15 01/31/17 [Flonase] Furosemide [Lasix] 40 mg PO BID 07/05/15 01/31/17 Loratadine [Claritin] 10 mg PO HS 07/05/15 01/31/17 Pioglitazone [Actos] 45 mg PO QAM 07/05/15 01/31/17 Potassium Chloride 20 meq PO QAM 07/05/15 01/31/17 Simvastatin [Zocor] 20 mg PO HS 07/05/15 01/31/17 Aspirin 81 mg PO QAM 07/21/15 01/31/17 Gabapentin [Neurontin] 800 mg PO TID 07/21/15 01/31/17 Metoprolol [Lopressor] 100 mg PO BID 07/21/15 01/31/17 Nitroglycerin 0.4 mg SL Q5MIN PRN 07/21/15 01/31/17 Tamsulosin [Flomax] 0.4 mg PO QAM 07/21/15 01/31/17 Tiotropium [Spiriva] 18 mcg IH DAILY 01/12/16 01/31/17 Albuterol Neb [Proventil Neb] 2.5 mg IH TID PRN 01/27/16 01/31/17 Ergocalciferol (VITAMIN D2) 50,000 unit PO BARR 01/02/17 01/31/17 [Vitamin D2 (50,000 UNIT)] Previous Rx's Medication Instructions Recorded Albuterol Sulfate [Albuterol 2 puff IH Q6HR PRN #2 inhaler 11/30/15 Inhaler] Levothyroxine [Synthroid] 88 mcg PO QAM #30 tablet 04/17/16 GuaiFENesin/Codeine [ROBITUSSIN 5 ml PO Q6HR PRN #200 ml 09/26/16 w/CODEINE] Morphine Sulfate 15 mg PO BID PRN #60 tablet 01/14/17 HYDROcodone/Acet 5/325 mg [[place] 2 tab PO Q4H PRN #16 tablet 01/31/17 5-325 mg] Doxycycline 100 mg PO BID #30 capsule 02/21/17 Allergies Allergy/AdvReac Type Severity Reaction Status Date / Time Amoxicillin Allergy Mild Rash Verified 03/09/17 11:24 ampicillin Allergy Mild Rash Verified 03/09/17 11:24 cefazolin Allergy Mild Rash Verified 03/09/17 11:24 cephalexin [From Keflex] Allergy Mild Rash Verified 03/09/17 11:24 levofloxacin [From Levaquin] Allergy Mild Blister Verified 03/09/17 11:24 Penicillins Allergy Mild Rash Verified 03/09/17 11:24 pramipexole [From Mirapex] Allergy Mild Rash Verified 03/09/17 11:24 Sulfa (Sulfonamide Allergy Mild Rash Verified 03/09/17 11:24 Antibiotics) vancomycin Allergy Mild RED MAN Verified 03/09/17 11:24 SYNDROME-SKIN PEELS ciprofloxacin [From Cipro] Allergy Rash Verified 03/09/17 11:24 clindamycin Allergy Rash Verified 03/09/17 11:24 Oxycodone AdvReac Severe Unresponsiv Verified 03/09/17 11:24 e Past Medical History - Past Medical History Medical history: Reports: arthritis, asthma, atrial fibrillation, cancer, COPD, coronary artery disease, diabetes, GERD, GI bleed, hyperlipidemia, hypertension , osteoporosis, peripheral artery disease, renal disease, thyroid disease, other Surgical history: Reports: angioplasty/stent, appendectomy, arthroscopy, cholecystectomy, LE vascular intervention, orthopedic, other, pacemaker/AICD, sinus surgery, tracheostomy, vascular surgery, other, pacemaker Psychiatric history: Reports: no psych history, other - Social History Smoking Status: Former smoker Smokeless Tobacco Status: No Alcohol use: Reports: none Drug use: Reports: none Physical Exam - General Limitations: no limitations General appearance: alert, in no apparent distress Course Vital Signs Temperature 98.9 F 03/09/17 11:19 Pulse Rate 71 03/09/17 11:19 Respiratory Rate 18 03/09/17 11:19 Blood Pressure 142/96 03/09/17 11:19 O2 Sat by Pulse Oximetry 92 03/09/17 11:19 Temperature 98.9 F 03/09/17 11:19 Pulse Rate 80 03/09/17 13:06 Respiratory Rate 18 03/09/17 13:06 Blood Pressure 129/83 03/09/17 13:06 O2 Sat by Pulse Oximetry 93 03/09/17 13:06 Oxygen Delivery Oxygen Delivery Trach Mask Medical Decision Making - MDM Narrative Medical decision making narrative: I examined this patient and my medical decision-making was reviewed with the RUG HOOKER/PA/Advanced Practice Nurse/Resident Physician. I agree with the documented findings, disposition and treatment plan as described except to the extent set forth below. Patient was seen on arrival by myself and Dr. France, I agree with her evaluation and management plan, supervise care the patient's state. Patient comes in today complaining of some dyspnea. He elevated chest discomfort. He has has a history of Castleman syndrome. He sees oncology here for that. He has a trach in place. He thinks it is functioning well. Will order a cardiopulmonary workup on him and then reassess. He may need to stay in the hospital. He is in agreement with this plan.] Chest X-Ray 03/09/17 11:32 IMPRESSION: Low lung volumes during the exam. Mild bibasilar atelectasis or infiltrates with small pleural effusions. Pacemaker. D/ / 03/09/2017 12:59:16 Pebbles Craig MD / Lexis Roman Interpreting Provider: Pebbles Craig MD 1130 hrs.: Patient in EKG performed showed electronic ventricular paced rhythm. Rate of 73 QRS 92 QC 333and ischemia. Compared this with one he had done in earlier this year. That showed a ventricular paced rhythm also. 1330: Spoke with the patient coming in the hospital he is in agreement with this plan. Were not treating for pneumonia. Since she has been symptomatic also. He has no allergies to first generation cephalosporins but not third- generation cephalosporins order Rocephin and azithromycin. He is in agreement this plan. 1345 hrs.: Patient has been accepted by the hospitalist for admission. He is in agreement with this plan. - Lab Data Result diagrams: 03/09/17 11:50 03/09/17 11:50 Lab Results 03/09/17 03/09/17 03/09/17 Range/Units 11:50 11:50 11:50 WBC 11.6 H (4.3-11.1) K/mcL RBC 6.28 H (4.19-5.50) M/mcL Hgb 17.1 H (12.9-16.9) g/dL Hct 53.0 H (37.5-50.1) % MCV 84.4 (83.0-100.0) fL MCH 27.2 L (28.0-33.3) pg MCHC 32.3 (31.6-35.5) g/dL RDW 17.3 H (11.5-14.5) % Plt Count 100 L (140-400) K/mcL MPV 9.8 (9.4-12.4) fL Immature Gran % 0.8 (0-4) % Seg Neutrophils % 78.8 % Lymphocytes % 14.6 % Monocytes % 5.0 % Eosinophils % 0.3 % Basophils % 0.5 % Neutrophils # 9.2 H (1.6-8.9) K/mcL Lymphocytes # 1.7 (0.6-4.6) K/mcL Monocytes # 0.6 (0.0-1.3) K/mcL Eosinophils # 0.0 (0.0-0.6) K/mcL Basophils # 0.1 (0.0-0.2) K/mcL Nucleated RBCs/100 WBC 0.2 H (0) /100 WBC Sodium 138 (136-145) mEq/L Potassium 4.5 (3.5-4.5) mEq/L Chloride 103 (98-109) mEq/L Carbon Dioxide 27 (19-29) mEq/L BUN 10 (8-26) mg/dL Creatinine 1.20 (0.72-1.25) mg/dL Est GFR ( Amer) > 60 (> 60) Est GFR (Non-Af Amer) > 60 (> 60) BUN/Creatinine Ratio 8 (6-26) Glucose 99 (70-99) mg/dL Calculated Osmolality 285 (280-300) Calcium 8.9 (8.6-10.8) mg/dL Total Bilirubin 1.2 (0.2-1.2) mg/dL Direct Bilirubin 0.5 (0.0-0.5) mg/dL Indirect Bilirubin 0.7 (0.0-1.2) mg/dL AST 23 (5-34) Units/L ALT 14 (0-55) Units/L Alkaline Phosphatase 77 (38-126) Units/L Troponin I 0.01 (0-0.03) ng/mL B-Natriuretic Peptide (0-100) pg/mL Serum Total Protein 6.7 (6.0-8.3) g/dL Albumin 3.4 L (3.5-5.0) g/dL Globulin 3.3 (2.4-3.5) g/dL Albumin/Globulin Ratio 1.0 L (1.1-2.2) Urine Color (Yellow) Urine Clarity (Clear) Urine pH (5.0-8.0) pH Units Ur Specific [place] (1.010-1.025) Urine Protein (Neg-Trace) mg/dL Urine Glucose (UA) (Normal) mg/dL Urine Ketones (Negative) mg/dL Urine Blood (Negative) Urine Nitrite (Negative) Urine Bilirubin (Negative) Urine Urobilinogen (Normal) mg/dL Ur Leukocyte Esterase (Negative) Urine Microscopic RBC (0-3) per hpf Urine Microscopic WBC (0-3) per hpf Urine Bacteria (None-Few) per hpf Ur Culture Indicated? (NO) 03/09/17 03/09/17 Range/Units 11:50 12:20 WBC (4.3-11.1) K/mcL RBC (4.19-5.50) M/mcL Hgb (12.9-16.9) g/dL Hct (37.5-50.1) % MCV (83.0-100.0) fL MCH (28.0-33.3) pg MCHC (31.6-35.5) g/dL RDW (11.5-14.5) % Plt Count (140-400) K/mcL MPV (9.4-12.4) fL Immature Gran % (0-4) % Seg Neutrophils % % Lymphocytes % % Monocytes % % Eosinophils % % Basophils % % Neutrophils # (1.6-8.9) K/mcL Lymphocytes # (0.6-4.6) K/mcL Monocytes # (0.0-1.3) K/mcL Eosinophils # (0.0-0.6) K/mcL Basophils # (0.0-0.2) K/mcL Nucleated RBCs/100 WBC (0) /100 WBC Sodium (136-145) mEq/L Potassium (3.5-4.5) mEq/L Chloride (98-109) mEq/L Carbon Dioxide (19-29) mEq/L BUN (8-26) mg/dL Creatinine (0.72-1.25) mg/dL Est GFR ( Amer) (> 60) Est GFR (Non-Af Amer) (> 60) BUN/Creatinine Ratio (6-26) Glucose (70-99) mg/dL Calculated Osmolality (280-300) Calcium (8.6-10.8) mg/dL Total Bilirubin (0.2-1.2) mg/dL Direct Bilirubin (0.0-0.5) mg/dL Indirect Bilirubin (0.0-1.2) mg/dL AST (5-34) Units/L ALT (0-55) Units/L Alkaline Phosphatase (38-126) Units/L Troponin I (0-0.03) ng/mL B-Natriuretic Peptide 341 H (0-100) pg/mL Serum Total Protein (6.0-8.3) g/dL Albumin (3.5-5.0) g/dL Globulin (2.4-3.5) g/dL Albumin/Globulin Ratio (1.1-2.2) Urine Color Yellow (Yellow) Urine Clarity Clear (Clear) Urine pH 6.0 (5.0-8.0) pH Units Ur Specific [place] 1.009 L (1.010-1.025) Urine Protein Negative (Neg-Trace) mg/dL Urine Glucose (UA) Normal (Normal) mg/dL Urine Ketones Negative (Negative) mg/dL Urine Blood Large H (Negative) Urine Nitrite Negative (Negative) Urine Bilirubin Negative (Negative) Urine Urobilinogen Normal (Normal) mg/dL Ur Leukocyte Esterase Moderate H (Negative) Urine Microscopic RBC 5-15 H (0-3) per hpf Urine Microscopic WBC 5-15 H (0-3) per hpf Urine Bacteria Few (None-Few) per hpf Ur Culture Indicated? YES A (NO)
[2017-03-09 12:02] LABS: Basophils # 0.1 K/mcL (0.0-0.2); Basophils % 0.5 %; Eosinophils % 0.3 %; Hemoglobin 17.1 g/dL (12.9-16.9); Immature Granulocytes % 0.8 % (0-4); Lymphocytes # 1.7 K/mcL (0.6-4.6); Lymphocytes % 14.6 %; Mean Corpuscular HGB Conc 32.3 g/dL (31.6-35.5); Mean Corpuscular Hemoglobin 27.2 pg (28.0-33.3); Mean Corpuscular Volume 84.4 fL (83.0-100.0); Mean Platelet Volume 9.8 fL (9.4-12.4); Monocytes # 0.6 K/mcL (0.0-1.3); Neutrophils # 9.2 K/mcL (1.6-8.9); Nucleated Red Blood Cells 0.2 /100 WBC (0); Platelet Count 100 K/mcL (140-400); Red Blood Count 6.28 M/mcL (4.19-5.50); Red Cell Distribution Width 17.3 % (11.5-14.5); Segmented Neutrophils % 78.8 %
[2017-03-09 12:23] LABS: Alanine Aminotransferase 14 Units/L (0-55); Albumin 3.4 g/dL (3.5-5.0); Alkaline Phosphatase 77 Units/L (38-126); Aspartate Amino Transferase 23 Units/L (5-34); BUN/Creatinine Ratio 8 (6-26); Bilirubin,Direct 0.5 mg/dL (0.0-0.5); Bilirubin,Indirect 0.7 mg/dL (0.0-1.2); Bilirubin,Total 1.2 mg/dL (0.2-1.2); Blood Urea Nitrogen 10 mg/dL (8-26); Calcium 8.9 mg/dL (8.6-10.8); Carbon Dioxide 27 mEq/L (19-29); Chloride 103 mEq/L (98-109); Globulin 3.3 g/dL (2.4-3.5); Glucose 99 mg/dL (70-99); Osmolality,Calculated 285 (280-300); Potassium 4.5 mEq/L (3.5-4.5); Sodium 138 mEq/L (136-145); Total Protein 6.7 g/dL (6.0-8.3); eGFR For African Americans > 60 (> 60); eGFR For Non-African Americans > 60 (> 60)
[2017-03-09 12:45] LABS: Bilirubin,Urine Negative (Negative); Clarity,Urine Clear (Clear); Color,Urine Yellow (Yellow); Glucose,Urine (UA) Normal (Normal); Ketones,Urine Negative (Negative)
[2017-03-09 12:46] LABS: Blood,Urine Large (Negative); Leukocyte Esterase,Urine Moderate (Negative); Nitrite,Urine Negative (Negative); Protein,Urine Negative (Neg-Trace); Specific Gravity,Urine 1.009 (1.010-1.025); Urobilinogen,Urine Normal (Normal)
[2017-03-09 12:57] LABS: Bacteria,Urine Few per hpf (None-Few)
[2017-03-09] MEDS ORDERED: Azithromycin 500 MG in D5% in Water 250 ML IVPB ONE (13:05)
--- NOTE | 2017-03-09 13:09 | Emergency Department Note ---
Disposition Clinical Impression: Pneumonia Qualifiers: Pneumonia type: due to unspecified organism Laterality: bilateral Lung location : lower lobe of lung Qualified Code(s): J18.9 - Pneumonia, unspecified organism UTI (urinary tract infection) Qualifiers: Urinary tract infection type: acute cystitis Hematuria presence: with hematuria Qualified Code(s): N30.01 - Acute cystitis with hematuria Disposition: Admitted As Inpatient Condition: Good Referrals: NO,PCP [Non-Partnered Physician] - Forms: ED Satisfaction Letter Time of Disposition: 13:47 General Adult HPI - General Chief complaint: ED Chest Pain Stated complaint: chest pain/JOSE ALFREDO Time Seen by Provider: 03/09/17 11:18 Source: patient Limitations: no limitations Nursing Notes Reviewed: Yes Vital Signs Reviewed: Yes - History of Present Illness HPI Narrative: Patient woke up this morning complaining of shortness of breath. He has a nonproductive cough. He has a trach patient. He does have history of Castleman disease. He states he also just feels general malaise. He does complain of an aching chest pain. He states that after he woke up he noticed that this was all present. There are no provoking or alleviating factors. He is also complaining of a burning on urination that began this morning. Pain Scale: 2 - Related Data Home Medications Medication Instructions Recorded Confirmed Allopurinol [Zyloprim] 100 mg PO BID 07/05/15 01/31/17 Apixaban [Eliquis] 5 mg PO BID #0 07/05/15 01/31/17 Budesonide/Formoterol 160/4.5 2 puff IH BIDR 07/05/15 01/31/17 [Symbicort] Digoxin [Lanoxin] 250 mcg PO QAM 07/05/15 01/31/17 Fluticasone Propionate Nasal 50 mcg NS DAILY 07/05/15 01/31/17 [Flonase] Furosemide [Lasix] 40 mg PO BID 07/05/15 01/31/17 Loratadine [Claritin] 10 mg PO HS 07/05/15 01/31/17 Pioglitazone [Actos] 45 mg PO QAM 07/05/15 01/31/17 Potassium Chloride 20 meq PO QAM 07/05/15 01/31/17 Simvastatin [Zocor] 20 mg PO HS 07/05/15 01/31/17 Aspirin 81 mg PO QAM 07/21/15 01/31/17 Gabapentin [Neurontin] 800 mg PO TID 07/21/15 01/31/17 Metoprolol [Lopressor] 100 mg PO BID 07/21/15 01/31/17 Nitroglycerin 0.4 mg SL Q5MIN PRN 07/21/15 01/31/17 Tamsulosin [Flomax] 0.4 mg PO QAM 07/21/15 01/31/17 Tiotropium [Spiriva] 18 mcg IH DAILY 01/12/16 01/31/17 Albuterol Neb [Proventil Neb] 2.5 mg IH TID PRN 01/27/16 01/31/17 Ergocalciferol (VITAMIN D2) 50,000 unit PO BARR 01/02/17 01/31/17 [Vitamin D2 (50,000 UNIT)] Previous Rx's Medication Instructions Recorded Albuterol Sulfate [Albuterol 2 puff IH Q6HR PRN #2 inhaler 11/30/15 Inhaler] Levothyroxine [Synthroid] 88 mcg PO QAM #30 tablet 04/17/16 GuaiFENesin/Codeine [ROBITUSSIN 5 ml PO Q6HR PRN #200 ml 09/26/16 w/CODEINE] Morphine Sulfate 15 mg PO BID PRN #60 tablet 01/14/17 HYDROcodone/Acet 5/325 mg [[place] 2 tab PO Q4H PRN #16 tablet 01/31/17 5-325 mg] Doxycycline 100 mg PO BID #30 capsule 02/21/17 Allergies Allergy/AdvReac Type Severity Reaction Status Date / Time Amoxicillin Allergy Mild Rash Verified 03/09/17 11:24 ampicillin Allergy Mild Rash Verified 03/09/17 11:24 cefazolin Allergy Mild Rash Verified 03/09/17 11:24 cephalexin [From Keflex] Allergy Mild Rash Verified 03/09/17 11:24 levofloxacin [From Levaquin] Allergy Mild Blister Verified 03/09/17 11:24 Penicillins Allergy Mild Rash Verified 03/09/17 11:24 pramipexole [From Mirapex] Allergy Mild Rash Verified 03/09/17 11:24 Sulfa (Sulfonamide Allergy Mild Rash Verified 03/09/17 11:24 Antibiotics) vancomycin Allergy Mild RED MAN Verified 03/09/17 11:24 SYNDROME-SKIN PEELS ciprofloxacin [From Cipro] Allergy Rash Verified 03/09/17 11:24 clindamycin Allergy Rash Verified 03/09/17 11:24 Oxycodone AdvReac Severe Unresponsiv Verified 03/09/17 11:24 e Past Medical History - Past Medical History Medical history: Reports: arthritis, asthma, atrial fibrillation, cancer, COPD, coronary artery disease, diabetes, GERD, GI bleed, hyperlipidemia, hypertension , osteoporosis, peripheral artery disease, renal disease, thyroid disease, other Surgical history: Reports: angioplasty/stent, appendectomy, arthroscopy, cholecystectomy, LE vascular intervention, orthopedic, other, pacemaker/AICD, sinus surgery, tracheostomy, vascular surgery, other, pacemaker Psychiatric history: Reports: no psych history, other - Social History Smoking Status: Former smoker Smokeless Tobacco Status: No Alcohol use: Reports: none Drug use: Reports: none Physical Exam - General Limitations: no limitations General appearance: alert, in no apparent distress Course Course Narrative: Male patient with a trach present to emergency department with a one-day history of shortness of breath dull chest pain and general malaise. He states he woke up and was feeling like this. 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 He denies any increase in sputum. He states that he has a generalized malaise about him. He has just aches all over. Patient appears to not feel well. He is also complaining of a burning on urination that began this morning. Patient's chest x-ray showed a possible pneumonia. The patient' s clinical symptoms we will treat this as such. Patient's states that they generally have to do a CT to show pneumonia. This is more concerning to me since it is now showing on chest x-ray. He also has a UTI. We will start him on azithromycin as well as Rocephin. He has several antibiotic allergies. I discussed at length with the patient discharge versus admission. The patient and the patient's expressed concern about taking the patient home. He states that he is worse significantly short of breath and he generally is. He is maintaining an oxygen saturation of 92% on 35% oxygen. We will admit patient to the hospital at this time. - Consultations Consultation #1: Dr Evans accepted PT in stable condition. Time: 13:44 Vital Signs Temperature 98.9 F 03/09/17 11:19 Pulse Rate 71 03/09/17 11:19 Respiratory Rate 18 03/09/17 11:19 Blood Pressure 142/96 03/09/17 11:19 O2 Sat by Pulse Oximetry 92 03/09/17 11:19 Temperature 98.9 F 03/09/17 11:19 Pulse Rate 80 03/09/17 13:06 Respiratory Rate 18 03/09/17 13:06 Blood Pressure 129/83 03/09/17 13:06 O2 Sat by Pulse Oximetry 93 03/09/17 13:06 Oxygen Delivery Oxygen Delivery Trach Mask Medical Decision Making - Lab Data Result diagrams: 03/09/17 11:50 03/09/17 11:50 Lab Results 03/09/17 03/09/17 03/09/17 Range/Units 11:50 11:50 11:50 WBC 11.6 H (4.3-11.1) K/mcL RBC 6.28 H (4.19-5.50) M/mcL Hgb 17.1 H (12.9-16.9) g/dL Hct 53.0 H (37.5-50.1) % MCV 84.4 (83.0-100.0) fL MCH 27.2 L (28.0-33.3) pg MCHC 32.3 (31.6-35.5) g/dL RDW 17.3 H (11.5-14.5) % Plt Count 100 L (140-400) K/mcL MPV 9.8 (9.4-12.4) fL Immature Gran % 0.8 (0-4) % Seg Neutrophils % 78.8 % Lymphocytes % 14.6 % Monocytes % 5.0 % Eosinophils % 0.3 % Basophils % 0.5 % Neutrophils # 9.2 H (1.6-8.9) K/mcL Lymphocytes # 1.7 (0.6-4.6) K/mcL Monocytes # 0.6 (0.0-1.3) K/mcL Eosinophils # 0.0 (0.0-0.6) K/mcL Basophils # 0.1 (0.0-0.2) K/mcL Nucleated RBCs/100 WBC 0.2 H (0) /100 WBC Sodium 138 (136-145) mEq/L Potassium 4.5 (3.5-4.5) mEq/L Chloride 103 (98-109) mEq/L Carbon Dioxide 27 (19-29) mEq/L BUN 10 (8-26) mg/dL Creatinine 1.20 (0.72-1.25) mg/dL Est GFR ( Amer) > 60 (> 60) Est GFR (Non-Af Amer) > 60 (> 60) BUN/Creatinine Ratio 8 (6-26) Glucose 99 (70-99) mg/dL Calculated Osmolality 285 (280-300) Calcium 8.9 (8.6-10.8) mg/dL Total Bilirubin 1.2 (0.2-1.2) mg/dL Direct Bilirubin 0.5 (0.0-0.5) mg/dL Indirect Bilirubin 0.7 (0.0-1.2) mg/dL AST 23 (5-34) Units/L ALT 14 (0-55) Units/L Alkaline Phosphatase 77 (38-126) Units/L Troponin I 0.01 (0-0.03) ng/mL B-Natriuretic Peptide (0-100) pg/mL Serum Total Protein 6.7 (6.0-8.3) g/dL Albumin 3.4 L (3.5-5.0) g/dL Globulin 3.3 (2.4-3.5) g/dL Albumin/Globulin Ratio 1.0 L (1.1-2.2) Urine Color (Yellow) Urine Clarity (Clear) Urine pH (5.0-8.0) pH Units Ur Specific [place] (1.010-1.025) Urine Protein (Neg-Trace) mg/dL Urine Glucose (UA) (Normal) mg/dL Urine Ketones (Negative) mg/dL Urine Blood (Negative) Urine Nitrite (Negative) Urine Bilirubin (Negative) Urine Urobilinogen (Normal) mg/dL Ur Leukocyte Esterase (Negative) Urine Microscopic RBC (0-3) per hpf Urine Microscopic WBC (0-3) per hpf Urine Bacteria (None-Few) per hpf Ur Culture Indicated? (NO) 03/09/17 03/09/17 Range/Units 11:50 12:20 WBC (4.3-11.1) K/mcL RBC (4.19-5.50) M/mcL Hgb (12.9-16.9) g/dL Hct (37.5-50.1) % MCV (83.0-100.0) fL MCH (28.0-33.3) pg MCHC (31.6-35.5) g/dL RDW (11.5-14.5) % Plt Count (140-400) K/mcL MPV (9.4-12.4) fL Immature Gran % (0-4) % Seg Neutrophils % % Lymphocytes % % Monocytes % % Eosinophils % % Basophils % % Neutrophils # (1.6-8.9) K/mcL Lymphocytes # (0.6-4.6) K/mcL Monocytes # (0.0-1.3) K/mcL Eosinophils # (0.0-0.6) K/mcL Basophils # (0.0-0.2) K/mcL Nucleated RBCs/100 WBC (0) /100 WBC Sodium (136-145) mEq/L Potassium (3.5-4.5) mEq/L Chloride (98-109) mEq/L Carbon Dioxide (19-29) mEq/L BUN (8-26) mg/dL Creatinine (0.72-1.25) mg/dL Est GFR ( Amer) (> 60) Est GFR (Non-Af Amer) (> 60) BUN/Creatinine Ratio (6-26) Glucose (70-99) mg/dL Calculated Osmolality (280-300) Calcium (8.6-10.8) mg/dL Total Bilirubin (0.2-1.2) mg/dL Direct Bilirubin (0.0-0.5) mg/dL Indirect Bilirubin (0.0-1.2) mg/dL AST (5-34) Units/L ALT (0-55) Units/L Alkaline Phosphatase (38-126) Units/L Troponin I (0-0.03) ng/mL B-Natriuretic Peptide 341 H (0-100) pg/mL Serum Total Protein (6.0-8.3) g/dL Albumin (3.5-5.0) g/dL Globulin (2.4-3.5) g/dL Albumin/Globulin Ratio (1.1-2.2) Urine Color Yellow (Yellow) Urine Clarity Clear (Clear) Urine pH 6.0 (5.0-8.0) pH Units Ur Specific [place] 1.009 L (1.010-1.025) Urine Protein Negative (Neg-Trace) mg/dL Urine Glucose (UA) Normal (Normal) mg/dL Urine Ketones Negative (Negative) mg/dL Urine Blood Large H (Negative) Urine Nitrite Negative (Negative) Urine Bilirubin Negative (Negative) Urine Urobilinogen Normal (Normal) mg/dL Ur Leukocyte Esterase Moderate H (Negative) Urine Microscopic RBC 5-15 H (0-3) per hpf Urine Microscopic WBC 5-15 H (0-3) per hpf Urine Bacteria Few (None-Few) per hpf Ur Culture Indicated? YES A (NO)
[2017-03-09] MEDS ORDERED: Naloxone 0.4 MG/ML INJ IVP PRN (14:52)
[2017-03-09] MEDS ORDERED: Nitroglycerin 0.4 MG TAB.SUBL SL PRN (15:03)
[2017-03-09] MEDS ORDERED: *HR* HYDROcodone/Acet 5/325 mg TABLET PO PRN ×2 (15:03→15:34)
[2017-03-09] MEDS ORDERED: *HR* Morphine Immed Rel 30 MG TABLET PO PRN (15:03)
[2017-03-09] MEDS ORDERED: Dextrose Gel 15 GM PO PRN ×2 (15:10)
[2017-03-09] MEDS ORDERED: *HR* Dextrose 50 % in Water (Syg) 50 ML SYRINGE IVP PRN (15:10)
[2017-03-09] MEDS ORDERED: D5% in Water 1,000 ML IVC PRN (15:10)
--- NOTE | 2017-03-09 15:21 | Internal Med History&Physical ---
Date of Encounter: 03/09/17 Time of Encounter: 15:12 Assessment and Plan (1) Sepsis Current visit: Yes Status: Acute Patient with Pneumonia on xray, UA consistent with UTI. Fever of 102 with HR of 91, meeting sepsis criteria. Blood cultures, urine cultures and sputum cultures ordered stat lactic acid ordered Antibiotics switched from Azithromycin/Rocephin to Zyvox and aztreonam given patient's multiple episodes of sepsis in the past with known MRSA and psuedomonas colonization. Will continue to monitor need for fluids. continuous cardiac cath lab manager and pulse oximetry Qualifiers: Sepsis type: sepsis due to unspecified organism Qualified Code(s): A41.9 - Sepsis, unspecified organism (2) Pneumonia Current visit: Yes Status: Acute Patient with productive cough, shortness of breath, malaise. CXR consistent with pneumonia. Patient has spiked a fever, have initiated sepsis protocol. Patient with multiple previous infections and has trach, switched antibiotics from Azithromycin/rocephin to Aztreonam/Zyvox given high risk for atypical infections. titrate trach collar oxygen to maintain O2 sat > 92% duonebs QID albuterol nebulizer Q2 PRN Qualifiers: Pneumonia type: due to unspecified organism Laterality: bilateral Lung location: lower lobe of lung Qualified Code(s): J18.9 - Pneumonia, unspecified organism (3) UTI (urinary tract infection) Current visit: Yes Status: Acute Patient reporting dysuria and frequency. UA consistent with UTI with hematuria. Patient with some scant bleeding from urethra, likely due to UTI. Broad spectrum antibiotics ordered for sepsis. Await cultures. 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 In remission, and getting periodic IVIG as treatment. 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 After treatment for Castleman disease, patient regained functionality, but still has trach in place, and still has generalized numbness and tingling. (6) Atrial fibrillation Current visit: Yes Status: Chronic Patient with afib on metoprolol for rate control and eliquis for anti- coagulation. Reduce metoprolol to 50mg BID. Continue home dose of Eliquis. Qualifiers: Atrial fibrillation type: chronic Qualified Code(s): I48.2 - Chronic atrial fibrillation (7) Diabetes mellitus Current visit: Yes Status: Chronic diabetic, heart health diet check blood sugars ACHS sliding scale correction dose ACHS hypoglycemic protocol. Qualifiers: Diabetes mellitus type: type 2 Diabetes mellitus complication status: without complication Diabetes mellitus alf insulin use: without alf use Qualified Code(s): E11.9 - Type 2 diabetes mellitus without complications (8) Chronic respiratory failure Current visit: No Status: Chronic Patient with trach and on trach collar at home. Titrate trach collar oxygen to maintain O2 saturation > 92%. Qualifiers: Respiratory failure complication: unspecified whether with hypoxia or hypercapnia Qualified Code(s): J96.10 - Chronic respiratory failure, unspecified whether with hypoxia or hypercapnia (9) Status post tracheostomy Current visit: No Status: Chronic Patient had trach placed for airway narrowing due to prior intubations. Trach care Q shift with suction available at bedside. (10) COPD (chronic obstructive pulmonary disease) Current visit: Yes Status: Chronic Titrate trach collar oxygen to maintain O2 sat > 92% Continue home dose of spiriva duoneb treatments QID albuterol nebulizer Q2hr PRN Qualifiers: COPD type: unspecified COPD Qualified Code(s): J44.9 - Chronic obstructive pulmonary disease, unspecified (11) DVT prophylaxis Current visit: Yes Status: Acute Up to chair bid anti-embolic stockings Patient on eliquis for Afib, additional pharmacologic prophylaxis is not warranted. Internal Medicine - H&P: HPI Chief complaint: shortness of breath, cough Admitted From: Emergency Dept Plans for Post Hospital Care: Home History of present illness: Mr. Vogel is a 61 year old male with diabetes, COPD, coronary artery disease, hypertension, hyperlipidemia, peripheral artery disease, CAD, Castleman disease and POEMS syndrome, chronic respiratory failure with trach placement presented to the emergency department today with complaints of shortness of breath, productive cough, nausea, malaise. Patient reports he had some nausea and vomiting last evening, and then this morning woke up with a productive cough, shortness of breath, ache in his chest. He reports having some chills this morning. He reports some dysuria as well with burning on urination and frequency. He denies any lightheadedness, headache, palpitations, abdominal pain, diarrhea. Evaluation in the emergency department revealed mildly elevated white blood cell count of 11.6, UA was consistent with UTI. Chest x- ray showed low lung volumes, mild bibasilar atelectasis or infiltrates with small pleural effusions. Past Med Surg Social Fam HX - Past Medical History Medical history: arthritis, asthma, atrial fibrillation, cancer, COPD, coronary artery disease, diabetes, GERD, GI bleed, hyperlipidemia, hypertension, osteoporosis, peripheral artery disease, renal disease, thyroid disease, other ( Castleman disease and POEMS syndrome) Psychiatric history: no psych history, other - Past Surgical History Surgical History: angioplasty/stent, appendectomy, arthroscopy, cholecystectomy , LE vascular intervention, orthopedic, other, sinus surgery, tracheostomy, vascular surgery, other, pacemaker - Social History Smoking Status: Former smoker (120 pack year history) Smokeless Tobacco Status: No Alcohol use: none Drug use: none - Family History Father Living Status: Hx Family Cancer: Yes Mother Family Member Ethnicity: Non- Living Status: Still Living Internal Medicine - H&P: Meds Allopurinol [Zyloprim] 100 mg PO BID 07/05/15 [History] Apixaban [Eliquis] 5 mg PO BID #0 07/05/15 [History] Budesonide/Formoterol 160/4.5 [Symbicort] 2 puff IH BIDR 07/05/15 [History] Digoxin [Lanoxin] 250 mcg PO QAM 07/05/15 [History] Fluticasone Propionate Nasal [Flonase] 1 spray NS DAILY 07/05/15 [History] Furosemide [Lasix] 40 mg PO BID 07/05/15 [History] Loratadine [Claritin] 10 mg PO HS 07/05/15 [History] Pioglitazone [Actos] 45 mg PO QAM 07/05/15 [History] Potassium Chloride 20 meq PO QAM 07/05/15 [History] Simvastatin [Zocor] 20 mg PO HS 07/05/15 [History] Aspirin 81 mg PO QAM 07/21/15 [History] Gabapentin [Neurontin] 800 mg PO TID 07/21/15 [History] Metoprolol [Lopressor] 100 mg PO BID 07/21/15 [History] Nitroglycerin 0.4 mg SL Q5MIN PRN 07/21/15 [History] Tamsulosin [Flomax] 0.4 mg PO QAM 07/21/15 [History] Albuterol Sulfate [Albuterol Inhaler] 2 puff IH Q6HR PRN #2 inhaler 11/30/15 [Rx ] Tiotropium [Spiriva] 1 cap IH DAILY 01/12/16 [History] Albuterol Neb [Proventil Neb] 2.5 mg IH TID PRN 01/27/16 [History] Levothyroxine [Synthroid] 88 mcg PO QAM #30 tablet 04/17/16 [Rx] Ergocalciferol (VITAMIN D2) [Vitamin D2 (50,000 UNIT)] 50,000 unit PO BARR [History] Morphine Sulfate 15 mg PO BID PRN #60 tablet 01/14/17 [Rx] Doxycycline 100 mg PO BID #30 capsule 02/21/17 [Rx] Guaifenesin [Mucinex] 600 mg PO BID 03/09/17 [History] Allergies Amoxicillin Allergy (Mild, Verified 03/09/17 11:24) Rash ampicillin Allergy (Mild, Verified 03/09/17 11:24) Rash cefazolin Allergy (Mild, Verified 03/09/17 11:24) Rash cephalexin [From Keflex] Allergy (Mild, Verified 03/09/17 11:24) Rash levofloxacin [From Levaquin] Allergy (Mild, Verified 03/09/17 11:24) Blister Penicillins Allergy (Mild, Verified 03/09/17 11:24) Rash pramipexole [From Mirapex] Allergy (Mild, Verified 03/09/17 11:24) Rash Sulfa (Sulfonamide Antibiotics) Allergy (Mild, Verified 03/09/17 11:24) Rash vancomycin Allergy (Mild, Verified 03/09/17 11:24) RED [employer]NDROME-SK[employer] PEELS ciprofloxacin [From Cipro] Allergy (Verified 03/09/17 11:24) Rash clindamycin Allergy (Verified 03/09/17 11:24) Rash Oxycodone Adverse Reaction (Severe, Verified 03/09/17 11:24) Unresponsive All Systems PM: A 10-system review of systems was performed and is negative for pertinent findings except as documented above in the HPI. - Constitutional Constitutional: chills, malaise, no fever(s), no night sweats - EENT Eyes: no change in vision, no discharge, no pain, no photophobia Ears: no ear discharge, no ear pain, no tinnitus Nose, mouth and throat: no dysphagia, no nasal discharge, no neck pain, no sore throat - Cardiovascular Cardiovascular ROS IM: chest pain ("ache"), dyspnea, no diaphoresis, no lightheadedness, no palpitations, no syncope - Respiratory Respiratory: cough, dyspnea, excessive phlegm production, no wheezing - Gastrointestinal Gastrointestinal: nausea, vomiting, no abdominal pain, no diarrhea, no hematemesis, no hematochezia, no melena - Musculoskeletal Musculoskeletal ROS IM: numbness (generalized secondary to patient's POEMS syndrome), tingling (generalized secondary to patient's POEMS syndrome) - Integumentary Integumentary IM: no rash, no unusual bruising - Neurological Neurological ROS: numbness (generalized secondary to patient's POEMS syndrome), tingling (generalized secondary to patient's POEMS syndrome), no confusion, no convulsions, no focal weakness, no tremor(s) - Hematologic/Lymphatic Hematologic/Lymphatic: no easy bruising - Constitutional Vitals: Temp Pulse Resp BP Pulse Ox 102.9 F H 91 18 113/76 96 03/09/17 14:15 03/09/17 14:15 03/09/17 14:15 03/09/17 14:15 03/09/17 14:15 General appearance: Present: A&O X 3, pleasant, no acute distress - Head Head exam: Present: atraumatic, normocephalic - Eye Eye exam: Present: PERRL, conjuntiva pink, sclera anicteric Pupils: Present: PERRL - Neck Neck exam general surgery: Present: supple, trachea midline. Absent: lymphadenopathy Additional comments: trach to trach collar - Respiratory Respiratory exam: Present: rales. Absent: accessory muscle use, rhonchi, wheezes - Cardiovascular Cardiovascular exam: Present: RRR, +S1, +S2. Absent: diastolic murmur, gallop, rubs, systolic murmur - GI/Abdominal GI/Abdominal exam: Present: normal bowel sounds, soft, no peritoneal signs. Absent: distended, tenderness - Extremities Exam Extremities exam: Present: pedal edema (BLE +2 edema), warm, radial pulses palpable and symetrical. Absent: calf tenderness, cyanotic - Neurological Exam Neurological exam: Present: CN II-XII intact, oriented X3, no focal deficits. Absent: facial droop, speech deficit - Skin Skin exam: Present: dry, intact Internal Med - H&P Results - Labs CBC & Chem 7: 03/09/17 11:50 03/09/17 11:50 Labs: All Lab Results (24 Hours) 03/09/17 03/09/17 03/09/17 Range/Units 11:50 11:50 11:50 WBC 11.6 H (4.3-11.1) K/mcL RBC 6.28 H (4.19-5.50) M/mcL Hgb 17.1 H (12.9-16.9) g/dL Hct 53.0 H (37.5-50.1) % MCV 84.4 (83.0-100.0) fL MCH 27.2 L (28.0-33.3) pg MCHC 32.3 (31.6-35.5) g/dL RDW 17.3 H (11.5-14.5) % Plt Count 100 L (140-400) K/mcL MPV 9.8 (9.4-12.4) fL Immature Gran % 0.8 (0-4) % Seg Neutrophils % 78.8 % Lymphocytes % 14.6 % Monocytes % 5.0 % Eosinophils % 0.3 % Basophils % 0.5 % Neutrophils # 9.2 H (1.6-8.9) K/mcL Lymphocytes # 1.7 (0.6-4.6) K/mcL Monocytes # 0.6 (0.0-1.3) K/mcL Eosinophils # 0.0 (0.0-0.6) K/mcL Basophils # 0.1 (0.0-0.2) K/mcL Nucleated RBCs/100 WBC 0.2 H (0) /100 WBC PT (9.4-12.1) Seconds INR APTT (26.0-36.0) Seconds Sodium 138 (136-145) mEq/L Potassium 4.5 (3.5-4.5) mEq/L Chloride 103 (98-109) mEq/L Carbon Dioxide 27 (19-29) mEq/L BUN 10 (8-26) mg/dL Creatinine 1.20 (0.72-1.25) mg/dL Est GFR ( Amer) > 60 (> 60) Est GFR (Non-Af Amer) > 60 (> 60) BUN/Creatinine Ratio 8 (6-26) Glucose 99 (70-99) mg/dL Calculated Osmolality 285 (280-300) Calcium 8.9 (8.6-10.8) mg/dL Total Bilirubin 1.2 (0.2-1.2) mg/dL Direct Bilirubin 0.5 (0.0-0.5) mg/dL Indirect Bilirubin 0.7 (0.0-1.2) mg/dL AST 23 (5-34) Units/L ALT 14 (0-55) Units/L Alkaline Phosphatase 77 (38-126) Units/L Troponin I 0.01 (0-0.03) ng/mL B-Natriuretic Peptide (0-100) pg/mL Serum Total Protein 6.7 (6.0-8.3) g/dL Albumin 3.4 L (3.5-5.0) g/dL Globulin 3.3 (2.4-3.5) g/dL Albumin/Globulin Ratio 1.0 L (1.1-2.2) Urine Color (Yellow) Urine Clarity (Clear) Urine pH (5.0-8.0) pH Units Ur Specific [place] (1.010-1.025) Urine Protein (Neg-Trace) mg/dL Urine Glucose (UA) (Normal) mg/dL Urine Ketones (Negative) mg/dL Urine Blood (Negative) Urine Nitrite (Negative) Urine Bilirubin (Negative) Urine Urobilinogen (Normal) mg/dL Ur Leukocyte Esterase (Negative) Urine Microscopic RBC (0-3) per hpf Urine Microscopic WBC (0-3) per hpf Urine Bacteria (None-Few) per hpf Ur Culture Indicated? (NO) 03/09/17 03/09/17 03/09/17 Range/Units 11:50 12:20 15:20 WBC (4.3-11.1) K/mcL RBC (4.19-5.50) M/mcL Hgb (12.9-16.9) g/dL Hct (37.5-50.1) % MCV (83.0-100.0) fL MCH (28.0-33.3) pg MCHC (31.6-35.5) g/dL RDW (11.5-14.5) % Plt Count (140-400) K/mcL MPV (9.4-12.4) fL Immature Gran % (0-4) % Seg Neutrophils % % Lymphocytes % % Monocytes % % Eosinophils % % Basophils % % Neutrophils # (1.6-8.9) K/mcL Lymphocytes # (0.6-4.6) K/mcL Monocytes # (0.0-1.3) K/mcL Eosinophils # (0.0-0.6) K/mcL Basophils # (0.0-0.2) K/mcL Nucleated RBCs/100 WBC (0) /100 WBC PT 21.8 H (9.4-12.1) Seconds INR 2.0 APTT 39.5 H (26.0-36.0) Seconds Sodium (136-145) mEq/L Potassium (3.5-4.5) mEq/L Chloride (98-109) mEq/L Carbon Dioxide (19-29) mEq/L BUN (8-26) mg/dL Creatinine (0.72-1.25) mg/dL Est GFR ( Amer) (> 60) Est GFR (Non-Af Amer) (> 60) BUN/Creatinine Ratio (6-26) Glucose (70-99) mg/dL Calculated Osmolality (280-300) Calcium (8.6-10.8) mg/dL Total Bilirubin (0.2-1.2) mg/dL Direct Bilirubin (0.0-0.5) mg/dL Indirect Bilirubin (0.0-1.2) mg/dL AST (5-34) Units/L ALT (0-55) Units/L Alkaline Phosphatase (38-126) Units/L Troponin I (0-0.03) ng/mL B-Natriuretic Peptide 341 H (0-100) pg/mL Serum Total Protein (6.0-8.3) g/dL Albumin (3.5-5.0) g/dL Globulin (2.4-3.5) g/dL Albumin/Globulin Ratio (1.1-2.2) Urine Color Yellow (Yellow) Urine Clarity Clear (Clear) Urine pH 6.0 (5.0-8.0) pH Units Ur Specific [place] 1.009 L (1.010-1.025) Urine Protein Negative (Neg-Trace) mg/dL Urine Glucose (UA) Normal (Normal) mg/dL Urine Ketones Negative (Negative) mg/dL Urine Blood Large H (Negative) Urine Nitrite Negative (Negative) Urine Bilirubin Negative (Negative) Urine Urobilinogen Normal (Normal) mg/dL Ur Leukocyte Esterase Moderate H (Negative) Urine Microscopic RBC 5-15 H (0-3) per hpf Urine Microscopic WBC 5-15 H (0-3) per hpf Urine Bacteria Few (None-Few) per hpf Ur Culture Indicated? YES A (NO) - Diagnostic Studies Chest x-ray Additional comments: Chest X-Ray 03/09/17 11:32 IMPRESSION: Low lung volumes during the exam. Mild bibasilar atelectasis or infiltrates with small pleural effusions. Pacemaker. D/ / 03/09/2017 12:59:16 Pebbles Craig MD / Lexis Roman Interpreting Provider: Pebbles Craig MD
[2017-03-09] MEDS: Acetaminophen 325 MG TABLET PO PRN (15:23)
[2017-03-09 15:38] LABS: Prothrombin Time 21.8 Seconds (9.4-12.1)
[2017-03-09 15:40] LABS: Activated Partial Thrombo Time 39.5 Seconds (26.0-36.0)
[2017-03-09] MEDS ORDERED: Albuterol 2.5 MG/3 ML NEBULIZER IH PRN (15:59)
--- NOTE | 2017-03-09 16:21 | Event Note ---
Date of Encounter: 03/09/17 Time of Encounter: 16:19 Patient seen and examined with nurse practitioner. Healthcare associated pneumonia. He is immunocompromised because of IVIG and also had the circumcision last month. Treat for HCAP and cover for MRSA and Pseudomonas. Zyvox and Aztreonam given multiple antibiotic allergies. Sputum on blood cultures. Currently higher all positional requirements are faced with 35%. [employer] but no active policing. Full code
[2017-03-09] MEDS ORDERED: 0.9 % Sodium Chloride 1,000 ML IVC SCH (16:30)
[2017-03-09] MEDS: Aztreonam 2,000 MG in D5% in Water (Mini-Bag+) 100 ML IVPB SCH (17:30)
[2017-03-09] MEDS: Insulin LISPRO 300 UNITS/3 ML VIAL SQ SCH ×2 (17:31→22:05)
[2017-03-09] MEDS: Ipratropium/Albuterol Neb 3 ML IH SCH ×2 (20:04→22:06)
[2017-03-09] MEDS ORDERED: Metoprolol 100 MG TABLET PO SCH (21:00)
[2017-03-09] MEDS ORDERED: Furosemide 40 MG TABLET PO SCH (21:00)
[2017-03-09] MEDS: Budesonide/Formoterol 160/4.5 MDI IH SCH (22:07)
[2017-03-09] MEDS: Gabapentin 400 MG CAPSULE PO SCH (22:13)
[2017-03-09] MEDS: APIXABAN 5 MG TABLET PO SCH (22:14)
[2017-03-09] MEDS: Metoprolol 100 MG TABLET PO SCH (22:14)
[2017-03-10] MEDS: Aztreonam 2,000 MG in D5% in Water (Mini-Bag+) 100 ML IVPB SCH ×3 (00:42→14:50)
[2017-03-10 04:29] LABS: Basophils # 0.1 K/mcL (0.0-0.2); Basophils % 0.5 %; Eosinophils % 0.1 %; Hematocrit 47.8 % (37.5-50.1); Immature Granulocytes % 0.8 % (0-4); Lymphocytes # 2.4 K/mcL (0.6-4.6); Lymphocytes % 14.9 %; Mean Corpuscular HGB Conc 32.2 g/dL (31.6-35.5); Mean Corpuscular Hemoglobin 27.3 pg (28.0-33.3); Mean Corpuscular Volume 84.8 fL (83.0-100.0); Mean Platelet Volume 10.1 fL (9.4-12.4); Monocytes % 6.2 %; Neutrophils # 12.3 K/mcL (1.6-8.9); Red Blood Count 5.64 M/mcL (4.19-5.50); Red Cell Distribution Width 16.5 % (11.5-14.5); Segmented Neutrophils % 77.5 %
[2017-03-10 04:31] LABS: Hemoglobin 15.4 g/dL (12.9-16.9); Platelet Count 89 K/mcL (140-400)
[2017-03-10] MEDS: Ipratropium/Albuterol Neb 3 ML IH SCH ×4 (04:39→21:09)
[2017-03-10 04:42] LABS: Calcium 7.8 mg/dL (8.6-10.8); Potassium 4.3 mEq/L (3.5-4.5)
[2017-03-10] MEDS: Acetaminophen 325 MG TABLET PO PRN ×3 (07:38→22:39)
[2017-03-10] MEDS: *HR* Digoxin 0.125 MG TABLET PO SCH (07:39)
[2017-03-10] MEDS: Metoprolol 100 MG TABLET PO SCH ×2 (07:39→20:56)
[2017-03-10] MEDS: Aspirin 81 MG TAB.CHEW PO SCH (07:39)
[2017-03-10] MEDS: Gabapentin 400 MG CAPSULE PO SCH ×3 (07:40→20:57)
[2017-03-10] MEDS: APIXABAN 5 MG TABLET PO SCH ×2 (07:40→20:57)
[2017-03-10] MEDS: Insulin LISPRO 300 UNITS/3 ML VIAL SQ SCH ×4 (07:40→20:54)
[2017-03-10] MEDS: Tiotropium 18 MCG inhalation IH SCH (07:57)
[2017-03-10] MEDS ORDERED: Azithromycin 500 MG in D5% in Water 250 ML IVPB SCH (09:00)
--- NOTE | 2017-03-10 09:23 | Internal Med Progress Note ---
Date of Encounter: 03/10/17 Time of Encounter: 09:21 - Assessment and plan (1) Pneumonia Current Visit: Yes Status: Acute Assessment and plan: Patient has had recurrent admissions for sepsis and pneumonia due to his underlying immunosuppression. Currently admitted with a reactive cough, shortness of breath and fevers. Chest x-ray shows bibasilar atelectasis or infiltrates. Patient has multiple antibiotic allergies. Continue IV hydration , broad-spectrum IV antibiotics-Zyvox and aztreonam. We will change aztreonam to IV cefepime. Patient is noted to have worsening leukocytosis and renal dysfunction, likely related to underlying infection. Continue to monitor closely, monitor serum lactate, continue supportive care and supplemental oxygen. High risk for complications. Qualifiers: Pneumonia type: due to unspecified organism Laterality: bilateral Lung location: lower lobe of lung Qualified Code(s): J18.9 - Pneumonia, unspecified organism (2) UTI (urinary tract infection) Current Visit: Yes Status: Acute Assessment and plan: Urine dipstick is suggestive of infection and preliminary urine culture grows gram-negative rods. Patient did have recent circumcision and also significant meatal bleeding. We will consult urology in the event of continued bleeding complications. Continue IV antibiotics and monitor closely. Qualifiers: Urinary tract infection type: site unspecified Hematuria presence: with hematuria Qualified Code(s): N39.0 - Urinary tract infection, site not specified; R31.9 - Hematuria, unspecified (3) COPD (chronic obstructive pulmonary disease) Current Visit: Yes Status: Chronic Assessment and plan: Continue bronchodilators and supplemental oxygen as above. Qualifiers: COPD type: unspecified COPD Qualified Code(s): J44.9 - Chronic obstructive pulmonary disease, unspecified (4) Tracheostomy dependent Current Visit: Yes Status: Chronic Assessment and plan: Local tracheostomy care. (5) [id number] kidney injury Current Visit: Yes Status: Acute Assessment and plan: Unclear if patient has a history of chronic kidney disease as he is noted to have normal GFR on most of his blood draws. Serum creatinine is noted to be worsening today, likely related to infection and possible sepsis. Continue IV hydration and monitor urine output closely. Avoid nephrotoxic agents and dose antibiotics according to current creatinine clearance. (6) Hypothyroidism Current Visit: Yes Status: Chronic Qualifiers: Hypothyroidism type: unspecified Qualified Code(s): E03.9 - Hypothyroidism , unspecified (7) EMILY (obstructive sleep apnea) Current Visit: Yes Status: Chronic (8) POEMS syndrome Current Visit: Yes Status: Chronic (9) Castleman disease Current Visit: Yes Status: Chronic Assessment and plan: Patient has been on monthly IVIG for this and follows with outpatient hematology /oncology. (10) Hypertension Current Visit: Yes Status: Chronic Qualifiers: Hypertension type: essential hypertension Qualified Code(s): I10 - Essential (primary) hypertension (11) Atrial fibrillation Current Visit: Yes Status: Chronic Assessment and plan: Currently rate controlled. Continue beta kajal and long-term anticoagulation with Eliquis. Qualifiers: Atrial fibrillation type: chronic Qualified Code(s): I48.2 - Chronic atrial fibrillation (12) CAD (coronary artery disease) Current Visit: Yes Status: Chronic Qualifiers: Coronary Disease-Associated Artery/Lesion type: unspecified vessel or lesion type [place] vs. transplanted heart: [place] heart Associated angina: without angina Qualified Code(s): I25.10 - Atherosclerotic heart disease of [place] coronary artery without angina pectoris (13) Gout Current Visit: Yes Status: Chronic Qualifiers: Gout site: unspecified site Gout etiology: unspecified cause Chronicity: unspecified Qualified Code(s): M10.9 - Gout, unspecified (14) Diabetes mellitus Current Visit: Yes Status: Chronic Assessment and plan: Accu-Chek blood glucose monitoring with sliding scale insulin. Diabetic diet. Qualifiers: Diabetes mellitus type: type 2 Diabetes mellitus complication status: without complication Diabetes mellitus chcf insulin use: without rodent exterminator use Qualified Code(s): E11.9 - Type 2 diabetes mellitus without complications (15) Chronic respiratory failure Current Visit: Yes Status: Chronic Qualifiers: Respiratory failure complication: hypoxia Qualified Code(s): J96.11 - Chronic respiratory failure with hypoxia - Subjective Interval history: Reports feeling sick; has cough, dyspnea, fever/chills and emesis this morning; noted to have low grade fever early this morning; - Constitutional Vitals: Temp Pulse Resp BP Pulse Ox 100.2 F H 85 15 104/67 93 03/10/17 07:26 03/10/17 07:26 03/10/17 07:26 03/10/17 07:26 03/10/17 07:26 General appearance: Present: A&O X 3, answers questions appropriately - Neck Neck exam general surgery: Present: supple, trachea midline. Absent: lymphadenopathy Additional comments: tracheostomy with trach collar O2, yellowish secretions noted - Respiratory Respiratory exam: Present: rales (B/L coarse breath sounds, bibasal crepts). Absent: accessory muscle use, rhonchi, wheezes - Cardiovascular Cardiovascular exam: Present: RRR, +S1, +S2. Absent: diastolic murmur, gallop, rubs, systolic murmur - GI/Abdominal GI/Abdominal exam: Present: normal bowel sounds, soft, no peritoneal signs. Absent: distended, tenderness - Extremities Exam Extremities exam: Present: full ROM, pedal edema (2+ pedal edema in B/L ankles and lower legs), warm, radial pulses palpable and symetrical. Absent: calf tenderness, cyanotic Internal Medicine: Result - Labs CBC & Chem 7: 03/10/17 04:20 03/10/17 04:20 Labs: Short CBC 03/10/17 Range/Units 04:20 WBC 15.9 H (4.3-11.1) K/mcL Hgb 15.4 D (12.9-16.9) g/dL Hct 47.8 (37.5-50.1) % Plt Count 89 L (140-400) K/mcL Neutrophils # 12.3 H (1.6-8.9) K/mcL BMP 03/10/17 04:20 Sodium 132 L Potassium 4.3 Chloride 96 L Carbon Dioxide 24 BUN 17 Creatinine 1.67 H Glucose 92 Calcium 7.8 L - ABG Interpretation ABG results: PT/INR, D-dimer PT 21.8 Seconds (9.4-12.1) H 03/09/17 15:20 Consult Discharge Plan - Plan Referrals: Ruy Rollins MD [Primary Care Provider] - (web request sent on 03/10/17)
[2017-03-10] MEDS: 0.9 % Sodium Chloride 1,000 ML IVC SCH ×2 (10:01→20:59)
[2017-03-10] MEDS: Ondansetron 4 MG/2 ML VIAL IVP PRN (10:02)
[2017-03-10] MEDS: Budesonide/Formoterol 160/4.5 MDI IH SCH ×2 (10:24→21:10)
[2017-03-10] MEDS: Cefepime HCl 1,000 MG in D5% in Water (Mini-Bag+) 100 ML IVPB SCH (18:37)
[2017-03-11] MEDS: Ondansetron 4 MG/2 ML VIAL IVP PRN ×2 (04:30→23:40)
[2017-03-11 05:04] LABS: BUN/Creatinine Ratio 15 (6-26); Blood Urea Nitrogen 19 mg/dL (8-26); Carbon Dioxide 28 mEq/L (19-29); Chloride 98 mEq/L (98-109); Glucose 109 mg/dL (70-99); Osmolality,Calculated 275 (280-300); Potassium 4.2 mEq/L (3.5-4.5); Sodium 131 mEq/L (136-145); eGFR For African Americans > 60 (> 60); eGFR For Non-African Americans 56 (> 60)
[2017-03-11 05:19] LABS: Eosinophils % 0.1 %; Monocytes % 5.1 %
[2017-03-11 05:21] LABS: Basophils % 0.4 %; Hematocrit 46.3 % (37.5-50.1); Hemoglobin 14.7 g/dL (12.9-16.9); Immature Granulocytes % 0.7 % (0-4); Immature Platelets 6.9 % (1.1-6.1); Lymphocytes # 0.8 K/mcL (0.6-4.6); Mean Corpuscular HGB Conc 31.7 g/dL (31.6-35.5); Mean Corpuscular Hemoglobin 27.3 pg (28.0-33.3); Mean Corpuscular Volume 85.9 fL (83.0-100.0); Mean Platelet Volume 10.1 fL (9.4-12.4); Monocytes # 0.4 K/mcL (0.0-1.3); Red Blood Count 5.39 M/mcL (4.19-5.50); Red Cell Distribution Width 16.2 % (11.5-14.5); Segmented Neutrophils % 83.7 %
[2017-03-11 05:29] LABS: Platelet Count 83 K/mcL (140-400)
[2017-03-11] MEDS: Ipratropium/Albuterol Neb 3 ML IH SCH ×4 (05:41→22:40)
[2017-03-11] MEDS: Insulin LISPRO 300 UNITS/3 ML VIAL SQ SCH ×4 (07:08→22:00)
[2017-03-11] MEDS: Aspirin 81 MG TAB.CHEW PO SCH (07:48)
[2017-03-11] MEDS: Metoprolol 100 MG TABLET PO SCH ×2 (07:48→22:09)
[2017-03-11] MEDS: Gabapentin 400 MG CAPSULE PO SCH ×3 (07:48→22:08)
[2017-03-11] MEDS: *HR* Digoxin 0.125 MG TABLET PO SCH (07:48)
[2017-03-11] MEDS: APIXABAN 5 MG TABLET PO SCH ×2 (07:48→22:10)
[2017-03-11] MEDS: Cefepime HCl 1,000 MG in D5% in Water (Mini-Bag+) 100 ML IVPB SCH (07:49)
[2017-03-11] MEDS: 0.9 % Sodium Chloride 1,000 ML IVC SCH ×2 (07:50→23:41)
--- NOTE | 2017-03-11 09:09 | Internal Med Progress Note ---
Date of Encounter: 03/11/17 Time of Encounter: 09:07 - Assessment and plan (1) Pneumonia Status: Acute Assessment and plan: Patient has had recurrent admissions for sepsis and pneumonia due to his underlying immunosuppression. Patient has multiple antibiotic allergies. Continue IV hydration, broad-spectrum IV antibiotics-Zyvox and Cefepime. Tolerating well so far but continues to have intermittent fever spikes. Improving leukocytosis and renal function. 1/2 initial blood cultures grow GPC, possible contaminant, will f/up final results; patient is on gram positive coverage; Continue to monitor closely, monitor serum lactate, continue supportive care and supplemental oxygen. High risk for complications. Qualifiers: Pneumonia type: due to unspecified organism Laterality: bilateral Lung location: lower lobe of lung Qualified Code(s): J18.9 - Pneumonia, unspecified organism (2) UTI (urinary tract infection) Status: Acute Assessment and plan: Urine dipstick is suggestive of infection and urine culture grows Klebsiella pneumoniae, sensitive to cephalosporins. Improved meatal bleeding. Continue IV antibiotics and monitor closely. Qualifiers: Urinary tract infection type: site unspecified Hematuria presence: with hematuria Qualified Code(s): N39.0 - Urinary tract infection, site not specified; R31.9 - Hematuria, unspecified (3) COPD (chronic obstructive pulmonary disease) Status: Chronic Assessment and plan: Continue bronchodilators and supplemental oxygen, inhaled corticosteroids as above. Qualifiers: COPD type: unspecified COPD Qualified Code(s): J44.9 - Chronic obstructive pulmonary disease, unspecified (4) Tracheostomy dependent Status: Chronic Assessment and plan: Local tracheostomy care. (5) Kldex-lg-thejpcs kidney injury Status: Acute Assessment and plan: Unclear if patient has a history of chronic kidney disease as he is noted to have normal GFR on most of his blood draws. Serum creatinine is currently improving, continue IV hydration and monitor urine output closely. Avoid nephrotoxic agents and dose antibiotics according to current creatinine clearance. 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 (10) Hypertension Status: Chronic Qualifiers: Hypertension type: essential hypertension Qualified Code(s): I10 - Essential (primary) hypertension (11) Atrial fibrillation Status: Chronic Assessment and plan: Currently rate controlled. Continue beta kajal and long-term anticoagulation with Eliquis. Qualifiers: Atrial fibrillation type: chronic Qualified Code(s): I48.2 - Chronic atrial fibrillation (12) CAD (coronary artery disease) Status: Chronic Qualifiers: Coronary Disease-Associated Artery/Lesion type: unspecified vessel or lesion type [place] vs. transplanted heart: [place] heart Associated angina: without angina Qualified Code(s): I25.10 - Atherosclerotic heart disease of [place] coronary artery without angina pectoris (13) Gout Status: Chronic Qualifiers: Gout site: unspecified site Gout etiology: unspecified cause Chronicity: unspecified Qualified Code(s): M10.9 - Gout, unspecified (14) Diabetes mellitus Status: Chronic Assessment and plan: Continue [place] blood glucose monitoring with basal bolus insulin regimen; diabetic diet; Qualifiers: Diabetes mellitus type: type 2 Diabetes mellitus complication status: without complication Diabetes mellitus usp insulin use: without usp use Qualified Code(s): E11.9 - Type 2 diabetes mellitus without complications (15) Chronic respiratory failure Status: Chronic Qualifiers: Respiratory failure complication: hypoxia Qualified Code(s): J96.11 - Chronic respiratory failure with hypoxia - Subjective Interval history: Feels slightly better; tolerates oral diet; improved dyspnea, improving cough; had high grade fever last evening and low grade earlier this morning, currently afebrile; improved urethral bleeding; - Constitutional Vitals: Temp Pulse Resp BP Pulse Ox 98.4 F 82 20 105/61 88 03/11/17 07:06 03/11/17 07:06 03/11/17 07:06 03/11/17 07:06 03/11/17 07:06 General appearance: Present: A&O X 3, answers questions appropriately - Neck Additional comments: trach collar on O2 - Respiratory Respiratory exam: Present: rhonchi (B/L coarsse breath sounds and rhonchi). Absent: accessory muscle use, rales, wheezes - Cardiovascular Cardiovascular exam: Present: RRR, +S1, +S2. Absent: diastolic murmur, gallop, rubs, systolic murmur - GI/Abdominal GI/Abdominal exam: Present: normal bowel sounds, soft, no peritoneal signs. Absent: distended, tenderness - exam: Present: scrotal swelling (no swelling but dusky discoloration of scrotum, nontender) Additional comments: dried blood around glans penis, no fresh bleeding, nontender - Extremities Exam Extremities exam: Present: full ROM, warm, radial pulses palpable and symetrical. Absent: calf tenderness, cyanotic, pedal edema Additional comments: peripheral edema+ Internal Medicine: Result - Labs CBC & Chem 7: 03/13/17 06:50 03/13/17 06:50 Labs: Short CBC 03/11/17 Range/Units 04:25 WBC 8.4 (4.3-11.1) K/mcL Hgb 14.7 (12.9-16.9) g/dL Hct 46.3 (37.5-50.1) % Plt Count 83 L (140-400) K/mcL Neutrophils # 7.0 (1.6-8.9) K/mcL BMP 03/11/17 04:25 Sodium 131 L Potassium 4.2 Chloride 98 Carbon Dioxide 28 BUN 19 Creatinine 1.31 H Glucose 109 H Calcium 8.0 L - ABG Interpretation ABG results: PT/INR, D-dimer PT 21.8 Seconds (9.4-12.1) H 03/09/17 15:20 Consult Discharge Plan - Plan Instructions: Diabetes Mellitus Type 2 in Adults (DC) Referrals: Ruy Rollins MD [Primary Care Provider] - (web request sent on 03/10/17- Patient is being sent to [facility], follow up will be set up by that facility)
[2017-03-11] MEDS: Tiotropium 18 MCG inhalation IH SCH (11:30)
[2017-03-11] MEDS: Budesonide/Formoterol 160/4.5 MDI IH SCH (11:33)
[2017-03-11] MEDS ORDERED: *HR* Morphine Immed Rel 30 MG TABLET PO PRN (11:33)
[2017-03-11] MEDS: Acetaminophen 325 MG TABLET PO PRN ×2 (12:56→18:32)
--- NOTE | 2017-03-11 17:06 | Oncology Inp Consult Note ---
Date of Encounter: 03/12/17 Time of Encounter: 12:00 Assessment and Plan (1) Castleman disease Status: Chronic Assessment and plan: Immunosuppression, prior Rx with revlimid currently off therapy in remission, admitted with MRSA sepsis. IV abx linezolid. Rpt cultures. Afebrile yesterday. Increased secretions, possible pneumonia-UA positive/cx. Continue trach care, suctioning, inhaltion treatments. We will continue IVIG in clinic. Thrombocytopenia-mild baseline, s/p hydration, labs reviewed. No hematuria Plan d/w patient and his in detail - Data of Consult Requesting Physician: Pamella Hill MD Primary Care Provider: Ruy Rollins MD - Consult Narrative Reason for consult: POEMS syndrome, UTI History of present illness: Mr. Vogel is a 61 year old male with hx POEMS syndrome, no deficiency, on monthly intravenous immunoglobulin, patient with recurrent infections in the past and including pneumonia and cellulitis status post hospitalization, patient has a tracheostomy tube with psuedomona infection in the past, s/p circumcision recently and IVIG in clinic, hospitalized with symptoms of fever, mild leukocytosis urinalysis positive for infection culture showing Klebsiella pneumonia, blood culture gram-positive and chest x-ray showing infiltrates. He underwent ultrasound of the scrotum and bladder ultrasound for hematuria that shows bladder thickening as well as some complex hydrocele in the left testis. Bc this AM reported as MRSA He is having productive phlegm-vclear color. Bleeding around penile area has subsided. discomfort due to cough morphine had helped, currently denies any. Past Med Surg Social Fam HX - Past Medical History Medical history: arthritis, asthma, atrial fibrillation, cancer, COPD, coronary artery disease, diabetes, GERD, GI bleed, hyperlipidemia, hypertension, osteoporosis, peripheral artery disease, renal disease, thyroid disease, other ( Castleman disease and POEMS syndrome) Psychiatric history: no psych history, other - Past Surgical History Surgical History: angioplasty/stent, appendectomy, arthroscopy, cholecystectomy , LE vascular intervention, orthopedic, other, sinus surgery, tracheostomy, vascular surgery, other, pacemaker - Social History Smoking Status: Former smoker (120 pack year history) Smokeless Tobacco Status: No Alcohol use: none Drug use: none - Family History Father Adopted: No Age: 59 Living Status: Hx Family Cardiac Disorders: No Hx Family Respiratory Disorders: No Hx Family Cancer: Yes Hx Family GI Disorders: No Hx Family Genitourinary Disorders: No Hx Family Endocrine Disorder: No Hx Family Musculoskeletal Disorders: No Hx Family Neuromuscular Disorders: No Hx Family Neurologic Disorders: No Hx Family HEENT Disorders: No Hx Family Autoimmune Disorders: No Hx Family Reproductive Disorders: No Hx Family Psychosocial Disorders: No Hx Family Medical Disorders: No Mother Adopted: No Age: 82 Family Member Ethnicity: Non- Living Status: Still Living Hx Family Cardiac Disorders: No Hx Family Respiratory Disorders: No Hx Family Cancer: No Hx Family GI Disorders: No Hx Family Genitourinary Disorders: Yes Hx Family Endocrine Disorder: No Hx Family Musculoskeletal Disorders: No Hx Family Neuromuscular Disorders: No Hx Family Neurologic Disorders: No Hx Family HEENT Disorders: No Hx Family Autoimmune Disorders: No Hx Family Reproductive Disorders: No Hx Family Psychosocial Disorders: No Hx Family Medical Disorders: No Medications and Allergies Allopurinol [Zyloprim] 100 mg PO BID 07/05/15 [History] Apixaban [Eliquis] 5 mg PO BID #0 07/05/15 [History] Budesonide/Formoterol 160/4.5 [Symbicort] 2 puff IH BIDR 07/05/15 [History] Digoxin [Lanoxin] 250 mcg PO QAM 07/05/15 [History] Fluticasone Propionate Nasal [Flonase] 1 spray NS DAILY 07/05/15 [History] Furosemide [Lasix] 40 mg PO BID 07/05/15 [History] Loratadine [Claritin] 10 mg PO HS 07/05/15 [History] Pioglitazone [Actos] 45 mg PO QAM 07/05/15 [History] Potassium Chloride 20 meq PO QAM 07/05/15 [History] Simvastatin [Zocor] 20 mg PO HS 07/05/15 [History] Aspirin 81 mg PO QAM 07/21/15 [History] Gabapentin [Neurontin] 800 mg PO TID 07/21/15 [History] Metoprolol [Lopressor] 100 mg PO BID 07/21/15 [History] Nitroglycerin 0.4 mg SL Q5MIN PRN 07/21/15 [History] Tamsulosin [Flomax] 0.4 mg PO QAM 07/21/15 [History] Albuterol Sulfate [Albuterol Inhaler] 2 puff IH Q6HR PRN #2 inhaler 11/30/15 [Rx ] Tiotropium [Spiriva] 1 cap IH DAILY 01/12/16 [History] Albuterol Neb [Proventil Neb] 2.5 mg IH TID PRN 01/27/16 [History] Levothyroxine [Synthroid] 88 mcg PO QAM #30 tablet 04/17/16 [Rx] Ergocalciferol (VITAMIN D2) [Vitamin D2 (50,000 UNIT)] 50,000 unit PO BARR [History] Morphine Sulfate 15 mg PO BID PRN #60 tablet 01/14/17 [Rx] Doxycycline 100 mg PO BID #30 capsule 02/21/17 [Rx] Guaifenesin [Mucinex] 600 mg PO BID 03/09/17 [History] Allergies vancomycin Allergy (Intermediate, Verified 03/11/17 12:35) See Comments Patient noted blistering on back both itching and burning; has received vancomycin twice in past having reaction both times, second time worse than first; patient's decription different than red man syndrome Amoxicillin Allergy (Mild, Verified 03/09/17 11:24) Rash ampicillin Allergy (Mild, Verified 03/09/17 11:24) Rash cefazolin Allergy (Mild, Verified 03/09/17 11:24) Rash cephalexin [From Keflex] Allergy (Mild, Verified 03/09/17 11:24) Rash levofloxacin [From Levaquin] Allergy (Mild, Verified 03/09/17 11:24) Blister Penicillins Allergy (Mild, Verified 03/09/17 11:24) Rash pramipexole [From Mirapex] Allergy (Mild, Verified 03/09/17 11:24) Rash Sulfa (Sulfonamide Antibiotics) Allergy (Mild, Verified 03/09/17 11:24) Rash ciprofloxacin [From Cipro] Allergy (Verified 03/09/17 11:24) Rash clindamycin Allergy (Verified 03/09/17 11:24) Rash Oxycodone Adverse Reaction (Severe, Verified 03/09/17 11:24) Unresponsive Review of systems: as in HPI. no diarrhea Oncology - Exam - Constitutional Vitals: Temp Pulse Resp BP Pulse Ox 97.7 F 75 16 105/68 90 03/11/17 11:06 03/11/17 11:06 03/11/17 11:35 03/11/17 11:06 03/11/17 11:35 General appearance: average body habitus - Head Head exam: Present: atraumatic - Eye Eye exam: Present: sclera anicteric - ENT ENT exam: Present: mucous membranes moist - Respiratory Respiratory exam: Present: wheezes Additional comments: trach, secretions - Cardiovascular Cardiovascular exam: Present: +S1, +S2 - GI/Abdominal GI/Abdominal exam: Present: normal bowel sounds, soft - Extremities Exam Extremities exam: Present: pedal edema - Neurological Exam Neurological exam: Present: alert, oriented X3 - Psychiatric Psychiatric exam: Present: normal affect Oncology - Results - Labs Labs: Short CBC 03/11/17 Range/Units 04:25 WBC 8.4 (4.3-11.1) K/mcL Hgb 14.7 (12.9-16.9) g/dL Hct 46.3 (37.5-50.1) % Plt Count 83 L (140-400) K/mcL Neutrophils # 7.0 (1.6-8.9) K/mcL BMP 03/11/17 04:25 Sodium 131 L Potassium 4.2 Chloride 98 Carbon Dioxide 28 BUN 19 Creatinine 1.31 H Glucose 109 H Calcium 8.0 L Consult Discharge Plan - Plan Referrals: Ruy Rollins MD [Primary Care Provider] - (web request sent on 03/10/17)
[2017-03-11] MEDS: Cefepime HCl 2,000 MG in D5% in Water (Mini-Bag+) 100 ML IVPB SCH (18:05)
[2017-03-11] MEDS: Budesonide Neb 0.5 MG/2 ML IH SCH (22:40)
[2017-03-12] MEDS: Acetaminophen 325 MG TABLET PO PRN (04:32)
[2017-03-12] MEDS: Ipratropium/Albuterol Neb 3 ML IH SCH ×4 (05:15→20:50)
[2017-03-12] MEDS: Cefepime HCl 2,000 MG in D5% in Water (Mini-Bag+) 100 ML IVPB SCH ×2 (05:37→18:27)
--- NOTE | 2017-03-12 06:25 | Electrocardiograph Report ---
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
[2017-03-12] MEDS: Insulin LISPRO 300 UNITS/3 ML VIAL SQ SCH ×4 (07:27→21:35)
[2017-03-12 07:29] LABS: Eosinophils % 0.2 %; Hemoglobin 14.1 g/dL (12.9-16.9); Lymphocytes % 13.2 %
[2017-03-12 07:30] LABS: Basophils % 0.4 %; Hematocrit 43.4 % (37.5-50.1); Immature Granulocytes % 0.8 % (0-4); Immature Platelets 7.1 % (1.1-6.1); Lymphocytes # 0.6 K/mcL (0.6-4.6); Mean Corpuscular HGB Conc 32.5 g/dL (31.6-35.5); Mean Corpuscular Hemoglobin 27.9 pg (28.0-33.3); Mean Corpuscular Volume 85.8 fL (83.0-100.0); Mean Platelet Volume 10.9 fL (9.4-12.4); Monocytes # 0.3 K/mcL (0.0-1.3); Monocytes % 5.4 %; Neutrophils # 3.8 K/mcL (1.6-8.9); Red Blood Count 5.06 M/mcL (4.19-5.50); Red Cell Distribution Width 16.2 % (11.5-14.5)
[2017-03-12 07:40] LABS: BUN/Creatinine Ratio 14 (6-26); Blood Urea Nitrogen 14 mg/dL (8-26); Calcium 8.2 mg/dL (8.6-10.8); Carbon Dioxide 27 mEq/L (19-29); Chloride 100 mEq/L (98-109); Glucose 132 mg/dL (70-99); Magnesium 1.4 mg/dL (1.6-2.6); Osmolality,Calculated 276 (280-300); Potassium 4.1 mEq/L (3.5-4.5); Sodium 132 mEq/L (136-145); eGFR For African Americans > 60 (> 60); eGFR For Non-African Americans > 60 (> 60)
[2017-03-12] MEDS ORDERED: Acetaminophen 325 MG TABLET PO PRN (08:09)
[2017-03-12 08:19] LABS: Platelet Count 71 K/mcL (140-400)
[2017-03-12] MEDS: Ondansetron 4 MG/2 ML VIAL IVP PRN (09:26)
[2017-03-12] MEDS: Gabapentin 400 MG CAPSULE PO SCH ×3 (09:29→21:35)
[2017-03-12] MEDS: APIXABAN 5 MG TABLET PO SCH (09:29)
[2017-03-12] MEDS: *HR* Digoxin 0.125 MG TABLET PO SCH (09:29)
[2017-03-12] MEDS: Aspirin 81 MG TAB.CHEW PO SCH (09:29)
[2017-03-12] MEDS: Metoprolol 100 MG TABLET PO SCH ×2 (09:29→21:32)
[2017-03-12] MEDS: 0.9 % Sodium Chloride 1,000 ML IVC SCH ×2 (10:38→10:40)
[2017-03-12] MEDS: Budesonide Neb 0.5 MG/2 ML IH SCH ×2 (10:45→20:50)
[2017-03-12] MEDS ORDERED: Magnesium Sulfate 2 GM in D5% in Water 100 ML IVPB ONE (11:54)
--- NOTE | 2017-03-12 12:13 | Internal Med Progress Note ---
Date of Encounter: 03/12/17 Time of Encounter: 12:11 - Assessment and plan (1) Bacteremia Current Visit: Yes Status: Acute Assessment and plan: Patient initially had positive blood cultures for MRSA however repeat preliminary cultures have been NGTD Given patient's extensive list of drug allergies and culture sensitivity, patient is not adequately being treated for the bacteremia which can be contributing to constant fever spikes. Infectious disease consultation has been requested Patient currently on Linezolid for MRSA Pneumonia but Linezolid does not adequately provide MRSA coverage for bacteremia. Will follow up with ID in regards to possibly undergoing Vancomycin desensitization (2) HCAP (healthcare-associated pneumonia) Current Visit: No Status: Acute Assessment and plan: Continue IV abx (Linezolid and Cefepime) Repeat blood cultures if patient becomes febrile again follow up repeat blood cultures (3) COPD exacerbation Current Visit: Yes Status: Acute Assessment and plan: Likely secondary to underlying PNA Given currently clinical presentation will start IV steroids and continue bronchodilator support ABG noted and FiO2 increased to 60% Will continue to closely monitor respiratory status maintain O2 sat>89% GI ppx due to high steroid therapy (4) Hematuria Current Visit: Yes Status: Acute Assessment and plan: Urology input appreciated will continue jewell support Hold oral anticoagulation at this time (5) UTI (urinary tract infection) Current Visit: Yes Status: Acute Assessment and plan: Urine cultures positive for Klebsiella Pneumoniae Will continue current IV abx Qualifiers: Urinary tract infection type: site unspecified Hematuria presence: with hematuria Qualified Code(s): N39.0 - Urinary tract infection, site not specified; R31.9 - Hematuria, unspecified (6) Sepsis Current Visit: Yes Status: Resolved Qualifiers: Sepsis type: sepsis due to unspecified organism Qualified Code(s): A41.9 - Sepsis, unspecified organism (7) Chronic respiratory failure Current Visit: Yes Status: Chronic Assessment and plan: patient s/p tracheostomy continue O2 supplementation as needed Qualifiers: Respiratory failure complication: hypoxia Qualified Code(s): J96.11 - Chronic respiratory failure with hypoxia (8) Diabetes mellitus Current Visit: Yes Status: Chronic Assessment and plan: FS within acceptable range continue to monitor FS and BG continue SS insulin algorithm Qualifiers: Diabetes mellitus type: type 2 Diabetes mellitus complication status: without complication Diabetes mellitus retirement insulin use: without lobsterman use Qualified Code(s): E11.9 - Type 2 diabetes mellitus without complications (9) DVT prophylaxis Current Visit: No Status: Acute Assessment and plan: Holding oral anticoagulation due to hematuria IPCD - Subjective Interval history: Patient seen and examined at bedside. Resting in bed and reports of having difficulty breathing. Noted to have continuous fever spikes overnight with Tmax : 102.9. Patient is currently being treated for MRSA PNA and bacteremia - Constitutional Vitals: Temp Pulse Resp BP Pulse Ox 100 F H 107 20 130/83 92 03/12/17 12:02 03/12/17 12:02 03/12/17 12:02 03/12/17 12:02 03/12/17 12:02 General appearance: Present: A&O X 3, no acute distress, obese, answers questions appropriately - Head Head exam: Present: atraumatic, normocephalic - Eye Eye exam: Present: normal appearance, conjuntiva pink, sclera anicteric - Respiratory Respiratory exam: Present: respiratory distress, wheezes (bilateral expiratory wheezing ) Additional comments: Trached - Cardiovascular Cardiovascular exam: Present: RRR, +S1, +S2. Absent: diastolic murmur, gallop, rubs, systolic murmur - GI/Abdominal GI/Abdominal exam: Present: normal bowel sounds, soft, no peritoneal signs. Absent: distended, tenderness - Extremities Exam Extremities exam: Present: pedal edema, warm, radial pulses palpable and symetrical - Neurological Exam Neurological exam: Present: alert, oriented X3 - Psychiatric Psychiatric exam: Present: normal affect, normal mood Internal Medicine: Result - Labs CBC & Chem 7: 03/12/17 07:07 03/12/17 07:07 Labs: Short CBC 03/12/17 Range/Units 07:07 WBC 4.8 (4.3-11.1) K/mcL Hgb 14.1 (12.9-16.9) g/dL Hct 43.4 (37.5-50.1) % Plt Count 71 L (140-400) K/mcL Neutrophils # 3.8 (1.6-8.9) K/mcL BMP 03/12/17 07:07 Sodium 132 L Potassium 4.1 Chloride 100 Carbon Dioxide 27 BUN 14 Creatinine 0.97 Glucose 132 H Calcium 8.2 L - ABG Interpretation ABG results: PT/INR, D-dimer PT 21.8 Seconds (9.4-12.1) H 03/09/17 15:20 - Impressions Impressions Bladder Ultrasound 03/11/17 15:00 IMPRESSION: Continued circumferential urinary bladder wall thickening could be related to degree of distension or chronic outlet obstruction given mild prostatomegaly. Superimposed cystitis is not excluded. D/ / Bob Mcgowan MD / Bob Mcgowan MD Interpreting Provider: Bob Mcgowan MD Scrotum Ultrasound 03/11/17 15:00 IMPRESSION: Scrotal wall is mildly thickened and edematous on the left. There is a complex heterogeneous cystic region adjacent to the left testis which may represent a complex hydrocele. 4 x 5 x 5 mm cyst in the right testis. 4 x 4 x 5 mm right epididymal head cyst. D/ / Vannessa Finney MD / Vannessa Finney MD Interpreting Provider: Vannessa Finney MD Consult Discharge Plan - Plan Referrals: Ruy Rollins MD [Primary Care Provider] - (web request sent on 03/10/17)
[2017-03-12 12:37] LABS: ABG HCO3 25 mEQ/L (21-27); ABG PCO2 54 mmHg (35-45); ABG PH 7.32 pH Units (7.32-7.45); Blood Gas FiO2 40 %
[2017-03-12 12:38] LABS: ABG Base Excess 0.5 mEq/L (-2.0 to 3.0); ABG Oxygen Saturation 81 % (95-98); ABG TCO2 29.5 mEq/L (20-26)
[2017-03-12 12:39] LABS: ABG PO2 49 mmHg (85-104)
--- NOTE | 2017-03-12 12:44 | Urology - Consult Note ---
Date of Encounter: 03/12/17 Time of Encounter: 12:42 - Assessment and Plan (1) Hematuria Current Visit: Yes Status: Acute Assessment and plan: 61 year old man with hematuria after catheter placement. This is likely from [place] trauma and anticoagulants. Continue to hold anticoagulants. Okay to have aspirin on board. His urine is a light tea color with small clots. Will keep catheter in place for now. (2) UTI (urinary tract infection) Current Visit: Yes Status: Acute Assessment and plan: Klebsiella seen in urine. Okay to continue cefepime as it is a culture appropriate antibiotic. Qualifiers: Urinary tract infection type: site unspecified Hematuria presence: with hematuria Qualified Code(s): N39.0 - Urinary tract infection, site not specified; R31.9 - Hematuria, unspecified Urology CN:HPI Consult date: 03/12/17 Reason for consult Urology: Gross Hematuria Requesting physician: Radha Sharp History of present illness: 61 year old man was admitted for pneumonia and a UTI. He has a jewell catheter in place. His urine was showing worsening bleeding over the past day. He was on Elliquis, but it was held today. He had a circumcsion on 01/31/2017. The wound has healed well. He has a tracheostomy and is lying in bed comfortable today. Past Med Surg Social Fam HX - Past Medical History Medical history: arthritis, asthma, atrial fibrillation, cancer, COPD, coronary artery disease, diabetes, GERD, GI bleed, hyperlipidemia, hypertension, osteoporosis, peripheral artery disease, renal disease, thyroid disease, other ( Castleman disease and POEMS syndrome) Psychiatric history: no psych history, other - Past Surgical History Surgical History: angioplasty/stent, appendectomy, arthroscopy, cholecystectomy , LE vascular intervention, orthopedic, other, sinus surgery, tracheostomy, vascular surgery, other, pacemaker - Social History Smoking Status: Former smoker (120 pack year history) Smokeless Tobacco Status: No Alcohol use: none Drug use: none - Family History Father Adopted: No Age: 59 Living Status: Hx Family Cardiac Disorders: No Hx Family Respiratory Disorders: No Hx Family Cancer: Yes Hx Family GI Disorders: No Hx Family Genitourinary Disorders: No Hx Family Endocrine Disorder: No Hx Family Musculoskeletal Disorders: No Hx Family Neuromuscular Disorders: No Hx Family Neurologic Disorders: No Hx Family HEENT Disorders: No Hx Family Autoimmune Disorders: No Hx Family Reproductive Disorders: No Hx Family Psychosocial Disorders: No Hx Family Medical Disorders: No Mother Adopted: No Age: 82 Family Member Ethnicity: Non- Living Status: Still Living Hx Family Cardiac Disorders: No Hx Family Respiratory Disorders: No Hx Family Cancer: No Hx Family GI Disorders: No Hx Family Genitourinary Disorders: Yes Hx Family Endocrine Disorder: No Hx Family Musculoskeletal Disorders: No Hx Family Neuromuscular Disorders: No Hx Family Neurologic Disorders: No Hx Family HEENT Disorders: No Hx Family Autoimmune Disorders: No Hx Family Reproductive Disorders: No Hx Family Psychosocial Disorders: No Hx Family Medical Disorders: No Medications and Allergies Allopurinol [Zyloprim] 100 mg PO BID 07/05/15 [History] Apixaban [Eliquis] 5 mg PO BID #0 07/05/15 [History] Budesonide/Formoterol 160/4.5 [Symbicort] 2 puff IH BIDR 07/05/15 [History] Digoxin [Lanoxin] 250 mcg PO QAM 07/05/15 [History] Fluticasone Propionate Nasal [Flonase] 1 spray NS DAILY 07/05/15 [History] Furosemide [Lasix] 40 mg PO BID 07/05/15 [History] Loratadine [Claritin] 10 mg PO HS 07/05/15 [History] Pioglitazone [Actos] 45 mg PO QAM 07/05/15 [History] Potassium Chloride 20 meq PO QAM 07/05/15 [History] Simvastatin [Zocor] 20 mg PO HS 07/05/15 [History] Aspirin 81 mg PO QAM 07/21/15 [History] Gabapentin [Neurontin] 800 mg PO TID 07/21/15 [History] Metoprolol [Lopressor] 100 mg PO BID 07/21/15 [History] Nitroglycerin 0.4 mg SL Q5MIN PRN 07/21/15 [History] Tamsulosin [Flomax] 0.4 mg PO QAM 07/21/15 [History] Albuterol Sulfate [Albuterol Inhaler] 2 puff IH Q6HR PRN #2 inhaler 11/30/15 [Rx ] Tiotropium [Spiriva] 1 cap IH DAILY 01/12/16 [History] Albuterol Neb [Proventil Neb] 2.5 mg IH TID PRN 01/27/16 [History] Levothyroxine [Synthroid] 88 mcg PO QAM #30 tablet 04/17/16 [Rx] Ergocalciferol (VITAMIN D2) [Vitamin D2 (50,000 UNIT)] 50,000 unit PO BARR [History] Morphine Sulfate 15 mg PO BID PRN #60 tablet 01/14/17 [Rx] Doxycycline 100 mg PO BID #30 capsule 02/21/17 [Rx] Guaifenesin [Mucinex] 600 mg PO BID 03/09/17 [History] Allergies vancomycin Allergy (Intermediate, Verified 03/11/17 12:35) See Comments Patient noted blistering on back both itching and burning; has received vancomycin twice in past having reaction both times, second time worse than first; patient's decription different than red man syndrome Amoxicillin Allergy (Mild, Verified 03/09/17 11:24) Rash ampicillin Allergy (Mild, Verified 03/09/17 11:24) Rash cefazolin Allergy (Mild, Verified 03/09/17 11:24) Rash cephalexin [From Keflex] Allergy (Mild, Verified 03/09/17 11:24) Rash levofloxacin [From Levaquin] Allergy (Mild, Verified 03/09/17 11:24) Blister Penicillins Allergy (Mild, Verified 03/09/17 11:24) Rash pramipexole [From Mirapex] Allergy (Mild, Verified 03/09/17 11:24) Rash Sulfa (Sulfonamide Antibiotics) Allergy (Mild, Verified 03/09/17 11:24) Rash ciprofloxacin [From Cipro] Allergy (Verified 03/09/17 11:24) Rash clindamycin Allergy (Verified 03/09/17 11:24) Rash Oxycodone Adverse Reaction (Severe, Verified 03/09/17 11:24) Unresponsive Review of Systems - Constitutional fever(s), no chills - EENT Nose, mouth and throat: no dizziness - Cardiovascular no chest pain - Respiratory dyspnea - Gastrointestinal no nausea, no vomiting - Genitourinary flank pain, hematuria - Musculoskeletal no back pain - Integumentary no erythema, no rash - Neurological no weakness - Psychiatric no suicidal ideation - Hematologic/Lymphatic no easy bleeding - Allergic/Immunologic no wheezing Exam Initial Vital Signs Temp Pulse Resp BP Pulse Ox 98.9 F 71 18 142/96 92 03/09/17 11:19 03/09/17 11:19 03/09/17 11:19 03/09/17 11:19 03/09/17 11:19 - General physical appearance Present: well developed, well nourished, no distress - Eyes Absent: icteric - ENT Present: normal nares - Neck Present: trachea midline - Respiratory Present: normal respiratory effort - Cardiovascular Cardiovascular exam IM: RRR - Abdomen Abdomen: Present: soft - Genitourinary other (circumcised penis, wound is well healed. Small blood around meatus. Urine is clear to tea color with small clots and debris.) Urology Results - Labs 03/12/17 07:07 03/12/17 07:07 Abnormal lab results MCH 27.9 pg (28.0-33.3) L 03/12/17 07:07 RDW 16.2 % (11.5-14.5) H 03/12/17 07:07 Plt Count 71 K/mcL (140-400) L 03/12/17 07:07 Nucleated RBCs/100 WBC 0.2 /100 WBC (0) H 03/09/17 11:50 Immature Plt Fraction 7.1 % (1.1-6.1) H 03/12/17 07:07 PT 21.8 Seconds (9.4-12.1) H 03/09/17 15:20 APTT 39.5 Seconds (26.0-36.0) H 03/09/17 15:20 ABG pCO2 54 mmHg (35-45) H 03/12/17 12:25 ABG pO2 49 mmHg (85-104) L* 03/12/17 12:25 ABG Total CO2 29.5 mEq/L (20-26) H 03/12/17 12:25 ABG O2 Saturation 81 % (95-98) L 03/12/17 12:25 Sodium 132 mEq/L (136-145) L 03/12/17 07:07 Glucose 132 mg/dL (70-99) H 03/12/17 07:07 POC Glucose 123 (58-89) H 03/12/17 06:51 Calculated Osmolality 276 (280-300) L 03/12/17 07:07 Calcium 8.2 mg/dL (8.6-10.8) L 03/12/17 07:07 Magnesium 1.4 mg/dL (1.6-2.6) L 03/12/17 07:07 B-Natriuretic Peptide 341 pg/mL (0-100) H 03/09/17 11:50 Albumin 3.4 g/dL (3.5-5.0) L 03/09/17 11:50 Albumin/Globulin Ratio 1.0 (1.1-2.2) L 03/09/17 11:50 Ur Specific Tyler 1.009 (1.010-1.025) L 03/09/17 12:20 Urine Blood Large (Negative) H 03/09/17 12:20 Ur Leukocyte Esterase Moderate (Negative) H 03/09/17 12:20 Urine Microscopic RBC 5-15 per hpf (0-3) H 03/09/17 12:20 Urine Microscopic WBC 5-15 per hpf (0-3) H 03/09/17 12:20 Ur Culture Indicated? YES (NO) A 03/09/17 12:20 Nasal Screen MRSA (PCR) Positive (Negative) A 03/11/17 11:32 Diabetes panel 03/12/17 Range/Units 07:07 Sodium 132 L (136-145) mEq/L Potassium 4.1 (3.5-4.5) mEq/L Chloride 100 (98-109) mEq/L Carbon Dioxide 27 (19-29) mEq/L BUN 14 (8-26) mg/dL Creatinine 0.97 (0.72-1.25) mg/dL Glucose 132 H (70-99) mg/dL Calcium 8.2 L (8.6-10.8) mg/dL Calcium panel 03/12/17 Range/Units 07:07 Calcium 8.2 L (8.6-10.8) mg/dL Pituitary panel 03/12/17 Range/Units 07:07 Sodium 132 L (136-145) mEq/L Potassium 4.1 (3.5-4.5) mEq/L Chloride 100 (98-109) mEq/L Carbon Dioxide 27 (19-29) mEq/L BUN 14 (8-26) mg/dL Creatinine 0.97 (0.72-1.25) mg/dL Glucose 132 H (70-99) mg/dL Calcium 8.2 L (8.6-10.8) mg/dL Adrenal panel 03/12/17 Range/Units 07:07 Sodium 132 L (136-145) mEq/L Potassium 4.1 (3.5-4.5) mEq/L Chloride 100 (98-109) mEq/L Carbon Dioxide 27 (19-29) mEq/L BUN 14 (8-26) mg/dL Creatinine 0.97 (0.72-1.25) mg/dL Glucose 132 H (70-99) mg/dL Calcium 8.2 L (8.6-10.8) mg/dL All other labs normal. - Imaging US - pelvic: report reviewed, image reviewed US - kidney/bladder: report reviewed, image reviewed Consult Discharge Plan - Plan Referrals: Ruy Rollins MD [Primary Care Provider] - (web request sent on 03/10/17)
[2017-03-12] MEDS: methylPREDNISolone 125 MG/2 ML VIAL IVP SCH ×2 (12:57→18:29)
[2017-03-13] MEDS: Ipratropium/Albuterol Neb 3 ML IH SCH ×6 (01:55→20:01)
[2017-03-13] MEDS: Cefepime HCl 2,000 MG in D5% in Water (Mini-Bag+) 100 ML IVPB SCH ×2 (06:32→18:17)
[2017-03-13] MEDS: methylPREDNISolone 125 MG/2 ML VIAL IVP SCH (06:33)
[2017-03-13 07:11] LABS: BUN/Creatinine Ratio 17 (6-26); Blood Urea Nitrogen 15 mg/dL (8-26); Calcium 8.9 mg/dL (8.6-10.8); Carbon Dioxide 32 mEq/L (19-29); Chloride 100 mEq/L (98-109); Glucose 192 mg/dL (70-99); Magnesium 1.9 mg/dL (1.6-2.6); Osmolality,Calculated 286 (280-300); Phosphorous 2.1 mg/dL (2.3-4.7); Potassium 4.4 mEq/L (3.5-4.5); Sodium 135 mEq/L (136-145); eGFR For African Americans > 60 (> 60); eGFR For Non-African Americans > 60 (> 60)
[2017-03-13 07:20] LABS: Red Cell Distribution Width 16.1 % (11.5-14.5)
[2017-03-13 07:22] LABS: Basophils % 0.2 %; Hematocrit 46.7 % (37.5-50.1); Immature Granulocytes % 0.7 % (0-4); Immature Platelets 7.3 % (1.1-6.1); Lymphocytes # 0.7 K/mcL (0.6-4.6); Lymphocytes % 17.3 %; Mean Corpuscular HGB Conc 32.1 g/dL (31.6-35.5); Mean Corpuscular Hemoglobin 27.7 pg (28.0-33.3); Mean Corpuscular Volume 86.2 fL (83.0-100.0); Mean Platelet Volume 10.7 fL (9.4-12.4); Monocytes # 0.1 K/mcL (0.0-1.3); Neutrophils # 3.3 K/mcL (1.6-8.9); Red Blood Count 5.42 M/mcL (4.19-5.50); Segmented Neutrophils % 79.8 %
[2017-03-13 07:24] LABS: Platelet Count 72 K/mcL (140-400)
[2017-03-13] MEDS ORDERED: Sodium Phosphate 30 MMOL in D5% in Water 100 ML IVPB ONE ×2 (07:29→10:54)
[2017-03-13] MEDS: Budesonide Neb 0.5 MG/2 ML IH SCH ×2 (07:56→20:01)
[2017-03-13] MEDS: Metoprolol 100 MG TABLET PO SCH ×2 (08:09→20:49)
[2017-03-13] MEDS: Aspirin 81 MG TAB.CHEW PO SCH (08:09)
[2017-03-13] MEDS: *HR* Digoxin 0.125 MG TABLET PO SCH (08:09)
[2017-03-13] MEDS: Gabapentin 400 MG CAPSULE PO SCH ×3 (08:09→20:47)
[2017-03-13] MEDS: Insulin LISPRO 300 UNITS/3 ML VIAL SQ SCH ×4 (08:09→20:52)
--- NOTE | 2017-03-13 10:08 | Transfer Summary ---
Date of Encounter: 03/13/17 Time of Encounter: 09:20 Transfer Discharge Sum: Diag - Discharge Diagnosis (1) Bacteremia Status: Acute (2) HCAP (healthcare-associated pneumonia) Status: Acute (3) COPD exacerbation Status: Acute (4) Hematuria Status: Acute (5) UTI (urinary tract infection) Status: Acute (6) Sepsis Status: Resolved (7) Chronic respiratory failure Status: Chronic (8) Diabetes mellitus Status: Chronic (9) DVT prophylaxis Status: Acute Transfer Discharge Sum: Med - Medications Active and Home Medications: Home Medications Allopurinol [Zyloprim] 100 mg PO BID 07/05/15 [History Confirmed 03/09/17] Apixaban [Eliquis] 5 mg PO BID #0 07/05/15 [History Confirmed 03/09/17] Budesonide/Formoterol 160/4.5 [Symbicort] 2 puff IH BIDR 07/05/15 [History Confirmed 03/09/17] Digoxin [Lanoxin] 250 mcg PO QAM 07/05/15 [History Confirmed 03/09/17] Fluticasone Propionate Nasal [Flonase] 1 spray NS DAILY 07/05/15 [History Confirmed 03/09/17] Furosemide [Lasix] 40 mg PO BID 07/05/15 [History Confirmed 03/09/17] Loratadine [Claritin] 10 mg PO HS 07/05/15 [History Confirmed 03/09/17] Pioglitazone [Actos] 45 mg PO QAM 07/05/15 [History Confirmed 03/09/17] Potassium Chloride 20 meq PO QAM 07/05/15 [History Confirmed 03/09/17] Simvastatin [Zocor] 20 mg PO HS 07/05/15 [History Confirmed 03/09/17] Aspirin 81 mg PO QAM 07/21/15 [History Confirmed 03/09/17] Gabapentin [Neurontin] 800 mg PO TID 07/21/15 [History Confirmed 03/09/17] Metoprolol [Lopressor] 100 mg PO BID 07/21/15 [History Confirmed 03/09/17] Nitroglycerin 0.4 mg SL Q5MIN PRN 07/21/15 [History Confirmed 03/09/17] Tamsulosin [Flomax] 0.4 mg PO QAM 07/21/15 [History Confirmed 03/09/17] Albuterol Sulfate [Albuterol Inhaler] 2 puff IH Q6HR PRN #2 inhaler 11/30/15 [ Rx Confirmed 03/09/17] Tiotropium [Spiriva] 1 cap IH DAILY 01/12/16 [History Confirmed 03/09/17] Albuterol Neb [Proventil Neb] 2.5 mg IH TID PRN 01/27/16 [History Confirmed ] Levothyroxine [Synthroid] 88 mcg PO QAM #30 tablet 04/17/16 [Rx Confirmed ] Ergocalciferol (VITAMIN D2) [Vitamin D2 (50,000 UNIT)] 50,000 unit PO BARR [History Confirmed 03/09/17] Morphine Sulfate 15 mg PO BID PRN #60 tablet 01/14/17 [Rx Confirmed 03/09/17] Doxycycline 100 mg PO BID #30 capsule 02/21/17 [Rx Confirmed 03/09/17] Guaifenesin [Mucinex] 600 mg PO BID 03/09/17 [History Confirmed 03/09/17] Active Medications Acetaminophen (Tylenol) 650 mg PO Q6HR PRN PRN Reason: Mild Pain (1-3)/Fever Stop: 09/08/17 14:53 Last Admin: 03/12/17 12:57 Dose: 650 mg Albuterol Sulfate (Proventil Neb) 2.5 mg IH Q2H PRN PRN Reason: Shortness Of Breath/Wheezing Stop: 09/08/17 16:00 Albuterol/Ipratropium (Duoneb) 3 ml IH [id number] [facility] Stop: 09/11/17 16:01 Last Admin: 03/13/17 07:56 Dose: 3 ml Apixaban (Eliquis) 5 mg PO BID [facility] Stop: 09/08/17 21:01 Last Admin: 03/12/17 09:29 Dose: 5 mg Aspirin (Aspirin) 81 mg PO QAM [facility] Stop: 09/09/17 09:01 Last Admin: 03/13/17 08:09 Dose: 81 mg Budesonide (Pulmicort Neb) 0.5 mg IH BIDR [facility] Stop: 09/10/17 22:01 Last Admin: 03/13/17 07:56 Dose: 0.5 mg Dextrose/Water (Dextrose 50% (Syg)) 25 ml IVP AD PRN PRN Reason: Hypoglycemia Stop: 09/08/17 15:11 Digoxin (Lanoxin) 0.25 mg PO QAM [facility] Stop: 09/09/17 09:01 Last Admin: 03/13/17 08:09 Dose: 0.25 mg Diphenhydramine HCl (Benadryl) 25 mg IVP Q4HR PRN PRN Reason: Itching Stop: 09/09/17 20:01 Docusate Sodium (Colace) 100 mg PO BID PRN PRN Reason: Constipation Stop: 09/08/17 14:53 Gabapentin (Neurontin) 800 mg PO TID [facility] Stop: 09/08/17 21:01 Last Admin: 03/13/17 08:09 Dose: 800 mg Glucagon (Glucagen) 1 mg IM ONCE PRN PRN Reason: Hypoglycemia Stop: 09/08/17 15:11 Glucose (Gluctose) 15 gm PO ONCE PRN PRN Reason: Hypoglycemia Stop: 09/08/17 15:11 Glucose (Gluctose) 30 gm PO ONCE PRN PRN Reason: Hypoglycemia Stop: 09/08/17 15:11 Dextrose (Dextrose 5%) 1,000 mls @ 100 mls/hr IVC .Q10H PRN PRN Reason: HYPOGLYCEMIA Stop: 09/08/17 15:11 Linezolid/Dextrose (Zyvox 600mg/300ml) 600 mg in 300 mls @ 150 mls/hr IVPB Q12H [facility] Stop: 09/08/17 16:01 Last Admin: 03/13/17 04:03 Dose: 150 mls/hr Cefepime HCl 2,000 mg/ (Dextrose) 100 mls @ 200 mls/hr IVPB Q12HR [facility] Stop: 09/10/17 18:01 Last Admin: 03/13/17 06:32 Dose: 200 mls/hr Sodium Phosphate 30 mmol/ (Dextrose) 110 mls @ 16 mls/hr IVPB ONCE ONE Stop: 03/13/17 14:21 Last Admin: 03/13/17 09:05 Dose: 16 mls/hr Insulin Human Lispro (Humalog) 0 units SQ HS [facility] PRN Reason: Protocol Stop: 09/08/17 21:01 Last Admin: 03/12/17 21:35 Dose: 2 units Insulin Human Lispro (Humalog) 0 units SQ TIDAC [facility] PRN Reason: Protocol Stop: 09/08/17 16:31 Last Admin: 03/13/17 08:09 Dose: 2 units Levothyroxine Sodium (Synthroid) 88 mcg PO DAILY@0630 [facility] Stop: 09/11/17 08:10 Last Admin: 03/13/17 06:33 Dose: 88 mcg Methylprednisolone (Solu-Medrol) 60 mg IVP Q12HR [facility] Stop: 09/11/17 12:11 Last Admin: 03/13/17 06:33 Dose: 60 mg Metoprolol Tartrate (Lopressor) 50 mg PO BID [facility] Stop: 09/08/17 21:01 Last Admin: 03/13/17 08:09 Dose: 50 mg Morphine Sulfate (Morphine Sulfate) 15 mg PO BID PRN PRN Reason: Moderate to Severe Pain (4-10) Last Admin: 03/12/17 01:18 Dose: 15 mg Naloxone HCl (Narcan) 0.4 mg IVP Q2MIN PRN PRN Reason: Opioid Reversal Stop: 09/08/17 14:53 Nitroglycerin (Nitroglycerin) 0.4 mg SL Q5MIN PRN PRN Reason: Chest Pain Stop: 09/08/17 15:04 Omeprazole (Prilosec) 40 mg PO DAILY@0630 [facility] PRN Reason: Protocol Stop: 09/12/17 06:31 Last Admin: 03/13/17 06:33 Dose: 40 mg Ondansetron HCl (Zofran) 4 mg IVP Q8HR PRN PRN Reason: Nausea And Vomiting Stop: 09/08/17 14:53 Last Admin: 03/12/17 09:26 Dose: 4 mg Simvastatin (Zocor) 20 mg PO [facility] PRN Reason: Protocol Stop: 09/08/17 21:01 Last Admin: 03/12/17 21:34 Dose: 20 mg Tamsulosin HCl (Flomax) 0.4 mg PO [facility] PRN Reason: Protocol Stop: 09/09/17 09:01 Last Admin: 03/13/17 08:09 Dose: 0.4 mg Transfer Discharge Sum: Data Procedures and tests throughout hospitalization: Pending Orders 03/09/17 15:03 Nitroglycerin 0.4 mg SL Q5MIN PRN 03/09/17 15:10 Glucose, blood poc measurement [RC] .achs Hypoglycemia Treatment Orders [RC] .once Notify provider [RC] once D5% in Water [Dextrose 5%] 1,000 ml IVC 100 mls/hr Dextrose 50 % in Water (Syg) [Dextrose 50% (Syg)] 25 ml IVP AD PRN Dextrose Gel [Gluctose] 15 gm PO ONCE PRN Dextrose Gel [Gluctose] 30 gm PO ONCE PRN Glucagon, Human Recombinant [GlucaGen] 1 mg IM ONCE PRN 03/09/17 15:14 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 Ha[employer] 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 Driver [CONS] Routine 03/09/17 15:22 Culture,Blood [BC] Stat 03/09/17 15:53 Tracheostomy care [RC] .Q8 03/09/17 15:59 Oxygen administration Trach Collar 15% Albuterol Neb [Proventil Neb] 2.5 mg IH Q2H PRN 03/09/17 16:00 Linezolid 600 MG/300 ML [Zyvox 600mg/300mL] 600 mg in 300 ml IVPB Q12H 03/09/17 16:30 Insulin LISPRO [HumaLOG] See Protocol SQ TIDAC 03/09/17 21:00 Apixaban [Eliquis] 5 mg PO BID Gabapentin [Neurontin] 800 mg PO TID Insulin LISPRO [HumaLOG] See Protocol SQ HS Metoprolol [Lopressor] 50 mg PO BID Simvastatin [Zocor] 20 mg PO HS 03/10/17 09:00 Aspirin 81 mg PO QAM Digoxin [Lanoxin] 0.25 mg PO QAM Tamsulosin [Flomax] 0.4 mg PO QAM 03/10/17 18:30 DiphenhydraMINE [Benadryl] 25 mg IVP Q4HR PRN 03/11/17 09:15 Consult to Oncology Hematology [CONS] Routine 03/11/17 11:33 Morphine Immed Rel [Morphine Sulfate] 15 mg PO BID PRN 03/11/17 18:00 Cefepime HCl [Maxipime] 2,000 mg D5% in Water (Mini-Bag+) [Dextrose 5% ( Minibag+) 100 ML] 100 ml IVPB Q12HR 03/11/17 22:00 Budesonide Neb [Pulmicort Neb] 0.5 mg IH BIDR 03/12/17 08:09 Acetaminophen [Tylenol] 650 mg PO Q6HR PRN Levothyroxine [Synthroid] 88 mcg PO DAILY@0630 03/12/17 08:58 Consult to Physical Therapy [CONS] Routine 03/12/17 12:00 Consult to Infectious Diseases [CONS] Stat 03/12/17 12:10 MethylPREDNISolone [Solu-MEDROL] 60 mg IVP Q12HR 03/12/17 12:14 Consult to Urology [CONS] Stat 03/12/17 14:59 Intermittent pneumatic esthela [RC] .CONTINUOUS 03/12/17 16:00 Ipratropium/Albuterol Neb [Duoneb] 3 ml IH [id number] 03/13/17 06:30 Omeprazole [PriLOSEC] 40 mg PO DAILY@62903/13/17 06:50 Culture,Blood [BC] AM 0400 03/13/17 07:29 Sodium Phosphate 30 mmol D5% in Water [Dextrose 5%] 100 ml IVPB ONCE - Impressions ITS Impressions Bladder Ultrasound 03/11/17 15:00 IMPRESSION: Continued circumferential urinary bladder wall thickening could be related to degree of distension or chronic outlet obstruction given mild prostatomegaly. Superimposed cystitis is not excluded. D/ / Bob Mcgowan MD / Bob Mcgowan MD Interpreting Provider: Bob Mcgowan MD Scrotum Ultrasound 03/11/17 15:00 IMPRESSION: Scrotal wall is mildly thickened and edematous on the left. There is a complex heterogeneous cystic region adjacent to the left testis which may represent a complex hydrocele. 4 x 5 x 5 mm cyst in the right testis. 4 x 4 x 5 mm right epididymal head cyst. D/ / Vannessa Finney MD / Vannessa Finney MD Interpreting Provider: Vannessa Finney MD Transfer Discharge Sum: Prov Date of admission: 03/09/17 14:52 Primary care physician: Ruy Rollins MD Consults: 03/09/17 15:14 Consult to [employer] Truck Driver [CONS] Routine Reason for SW Consult: Patient has HH services. 03/11/17 09:15 Consult to Oncology Hematology [CONS] Routine Consulting Provider: Pina Conrad Reason for Consult: Castleman disease with sepsis/PNA/UTI Call Completed: Yes 03/12/17 08:58 Consult to Physical Therapy [CONS] Routine Comment: Evaluate, develop and implement POC 03/12/17 12:00 Consult to Infectious Diseases [CONS] Stat Consulting Provider: Infectious Disease [place] Reason for Consult: bacteremia, MRSA PNA Call Completed: Yes 03/12/17 12:14 Consult to Urology [CONS] Stat Consulting Provider: Urology [place] Reason for Consult: Bladder outlet obstruction, hematuria Call Completed: Yes Attending physician on discharge: Radha Sharp Discharging clinician: Radha Sharp Anticipated date of transfer: 03/13/17 Receiving physician/facility: [facility] Transfer Discharge Sum: A/P - Plan Cognitive capacity at transfer: AAO x 3 Disposition: Transfer Other Transfer Discharge Sum: Hosp Hospital course: Mr. Vogel is a 61 year old male with diabetes, COPD, coronary artery disease, hypertension, hyperlipidemia, peripheral artery disease, CAD, Castleman disease and POEMS syndrome, chronic respiratory failure with trach placement admitted for management of UTI, bacteremia, MRSA pneumonia. Patient was started on appropriate IV antibiotics however continued to have daily spikes a fever with worsening in respiratory status. Given patient's multiple drug allergies and lack of infectious disease physician at this facility, [facility] was contacted for transfer for higher level of care. Patient has history of pacemaker and given MRSA bacteremia, he will benefit from infectious disease evaluation. Patient has been accepted at [facility] for transfer under the care of . Patient will be transferred to [facility], pending bed availability. Patient agrees with the transfer. - Time Spent with Patient Total time spent providing and/or coordinating transfer services: Greater than 30 minutes Transfer Discharge Sum: Exam - Constitutional Vitals: Vital Signs Temp Pulse Resp BP Pulse Ox 03/13/17 09:46 96.2 F L 03/13/17 07:59 18 96 03/13/17 07:16 95.4 F L 74 18 125/77 96 03/13/17 04:57 96.2 F L 03/13/17 04:20 95 F L 71 16 129/85 98 03/13/17 03:46 16 100 03/13/17 00:52 70 18 112/79 98 03/12/17 20:50 16 95 03/12/17 19:30 97.9 F 82 18 107/72 96 03/12/17 16:59 16 97 03/12/17 15:51 98.6 F 108 20 125/78 99 03/12/17 13:41 98.4 F 03/12/17 12:02 100 F H 107 20 130/83 92 03/12/17 10:45 18 92 Intake and Output 03/12/17 03/13/17 03/13/17 23:59 07:59 15:59 Intake Total 400 / 400 0 / 0 0 / 0 Output Total 1250 / 1250 1650 / 1650 Balance -850 / -850 -1650 / -1650 0 / 0 Intake: IV Fluids 400 / 400 Maxipime 2,000 MG In 100 / 100 Dextrose 5% (Minibag+) 100 ML 100 ML @ 200 mls/ hr IVPB Q12HR [facility] Rx#: [id number] Zyvox 600mg/300mL 600 mg 300 / 300 In 300 ml @ 150 mls/hr IVPB Q12H [facility] Rx#: [id number] Oral 0 / 0 0 / 0 0 / 0 Output: Urine 0 / 0 0 / 0 Catheter 1250 / 1250 1650 / 1650 Other: Meal Breakfast Percent of Meal Consumed 0% Stool Size Moderate Stool Consistency soft Stool Color Brown # Bowel Movements 1 Weight 119.295 kg Blood Glucose* 216 160 Patient Weight 03/13/17 23:59 Weight 119.295 kg General appearance: morbidly obese - Head Head exam: Present: atraumatic, normocephalic - Neck Additional comments: tracheostomy - Respiratory Respiratory exam: Present: decreased breath sounds, wheezes - Cardiovascular Cardiovascular exam: Present: RRR, +S1, +S2 - GI/Abdominal GI/Abdominal exam: Present: normal bowel sounds, soft. Absent: tenderness - Extremities Exam Extremities exam: Present: pedal edema. Absent: tenderness - Neurological Exam Neurological exam: Present: oriented X3
--- NOTE | 2017-03-13 11:00 | Infectious Disease Consult ---
Date of Encounter: 03/13/17 Time of Encounter: 09:30 Assessment and Plan (1) Sepsis Status: Resolved Assessment and plan: The patient had two SIRS criteria (leukocytosis and fever). The patient continues to be febrile with Tmax 102.9. He has had some intermittent tachycardia as well. He is now hypothermic and leukopenic. Likely secondary to MRSA PNA and bacteremia. Blood cultures drawn 03/09/17 are positive 1/2 sets for MRSA. Repeat blood cultures drawn 03/13/17 are pending x 2 sets. Qualifiers: Sepsis type: sepsis due to unspecified organism Qualified Code(s): A41.9 - Sepsis, unspecified organism (2) Bacteremia Status: Acute Assessment and plan: Causative organism MRSA. Source likely MRSA PNA in an immunocompromised patient. Complicated due to the patient having a pacemaker and an a-port--> high risk of seeding. Blood cultures drawn 03/09/17 are positive 1/2 sets for MRSA (drawn peripherally) . Repeat blood cultures drawn 03/13/17 are pending x 2 sets (drawn peripherally). No cultures have been drawn from the patient's a-port. The patient has been on IV antibiotics for 5 days now, so drawing cultures from the a-port now would likely be unyielding, but will go ahead and order a set for completion purposes. No endocarditis stigmata noted on exam. The patient has two minor Modified Avila' s criteria. No ECHO has been done/ordered. Would recommend at least a TTE to evaluate for IE. If negative, a IVÁN may be necessary, but not sure if it is contraindicated due to the patient's previous neck surgery. The patient continues to have fevers and is now hypothermic and leukopenic. The patient has an extensive list of allergies that limits our treatment options. Currently on Zyvox per the primary team, but it is likely that this is inadequate coverage for the patient's bacteremia. Start Daptomycin 6mg/kg IV daily. Give first dose now. Baseline CK level checked 03/12/17 and was 118. Continue to monitor every other day for the first few days of medication administration. Consider stopping simvastatin while on Daptomycin. Given that the patient has a pacemaker and MRSA bacteremia and a previous history of pacemaker infection, we need to consider removal of the pacemaker due to high risk of seeding. Unfortunately, our cardiology department does not provide this service. I recommend transferring the patient to [facility] where he had his pacemaker inserted to see if he is a candidate for removal. I have advised the patient of this and he agrees. I spoke with Dr. Sharp and notified her as well. We will be happy to resume care of the patient to follow his antibiotic therapy if he wishes once he is discharged home. Monitor renal function and dose-adjust antibiotics. Duration of treatment depends on the clinical picture. (3) Pneumonia Status: Acute Assessment and plan: Location: Bilateral bases. Causative organism: MRSA per sputum culture. CXR completed in the ED shows bibasilar infiltrates consistent with atelectasis or PNA. Given the patient's clinical picture, likely PNA. Continue Zyvox 600mg IV Q12H (Daptomycin is inactivated by surfactant). Continue O2 and aggressive pulmonary toileting. Avoid SSRIs while on Zyvox due to increased risk for serotonin syndrome. Duration of treatment depends on the clinical picture, but likely 14-21 days will be required. Monitor renal function and dose-adjust antibiotics. Qualifiers: Pneumonia type: due to unspecified organism Laterality: bilateral Lung location: lower lobe of lung Qualified Code(s): J18.9 - Pneumonia, unspecified organism (4) UTI (urinary tract infection) Status: Acute Assessment and plan: Causative organism K. pneumoniae per urine culture. Patient complained of urinary frequency and dysuria on admission. Antibiotic choice limited due to the patient's extensive allergy list. Continue cefepime 2 grams IV Q12H (day 5 of treatment/day 4 of cefepime). Duration of treatment 7-10 days. Monitor renal function and dose-adjust antibiotics. Qualifiers: Urinary tract infection type: site unspecified Hematuria presence: with hematuria Qualified Code(s): N39.0 - Urinary tract infection, site not specified; R31.9 - Hematuria, unspecified (5) Hdxxf-lf-krhajpt kidney injury Status: Acute Assessment and plan: Likely secondary to sepsis and worsened by possible urinary retention. Improved since jewell catheter inserted. Urology consulted and following. Continue to monitor serum creatinine and urine output. Dose-adjust antibiotics as appropriate. (6) Thrombocytopenia Status: Acute Assessment and plan: Likely secondary to sepsis. Continue to trend and monitor closely for acute bleeding. (7) Hematuria Status: Acute Assessment and plan: Likely secondary to traumatic jewell catheter insertion per Urology. Continue to monitor. (8) COPD (chronic obstructive pulmonary disease) Status: Chronic Qualifiers: COPD type: unspecified COPD Qualified Code(s): J44.9 - Chronic obstructive pulmonary disease, unspecified (9) Tracheostomy dependent Status: Chronic Assessment and plan: Secondary to tracheal stenosis. Continue trach care per policy. (10) Pacemaker Status: Chronic Assessment and plan: Initially inserted in the left upper chest at [facility]. Had infection that required removal and re-placement of new pacemaker in the right upper chest. Clinically, the site does not appear infected, but given the patient's immunocompromised state and history of infections, there is a high risk of seeding. Recommend considering removal. Recommend transfer to [facility] to see if he is a candidate for removal. (11) Multiple drug allergies Status: Chronic Assessment and plan: Poses a challenge for treating the patient's bacteremia and PNA. Previous history of severe Neeru Syndrome reaction with the use of IV Vancomycin. Daptomycin is not adequate for treatment of PNA as it is inactivated by surfactant. Linezolid inadequate for treatment of bacteremia. Will need to use both to adequately treat the patient. See further recommendations as above. 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 Continues to get monthly IVIG infusions. Managed by the [facility]. Hem/Onc team consulted and following. 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 (14) Immunodeficiency Status: Chronic Assessment and plan: Secondary to the patient's Castleman's Disease and IVIG infusions. See recommendations above. Infectious Disease HPI - Data of Consult Patient: known to practice within the last 3 years Consult date: 03/13/17 Requesting Physician: Radha Sharp MD Primary Care Provider: Ruy Rollins MD - Consult Narrative Reason for consult: MRSA bacteremia History of present illness: Mr. Vogel is a 61 year old male with an extensive past medical history most notably including COPD, diabetes, CAD, Castleman disease with associated POEMS currently receiving monthly IVIG infusions, pacemaker insertion, and a port insertion. The patient was managed in the hospital March 09 for pneumonia. We are consulted March 13 for further evaluation and treatment recommendations regarding MRSA pneumonia and MRSA bacteremia. The patient is a 61-year-old male with past medical history as stated above. The patient is well-nourished infectious disease service as we have been consulted on his case multiple times due to recurrent infections and his extensive allergy list. The patient presented to the emergency department on the day of admission with complaints of shortness of breath and chills. Workup in the ER revealed a mild leukocytosis and urinary tract infection. Chest x-ray showed mild bibasilar atelectasis versus infiltrates. The patient started on empiric IV antibiotics and admitted for further evaluation and treatment. Since admission, the patient's white blood cell count has normalized, but he is now leukopenic. He also spiked a temp of 102.9 has continued to have intermittent fevers, but he has no hypothermic. Urine culture obtained in the ER is positive for Klebsiella pneumonia. Blood cultures obtained in the ER +1 out of 2 sets for MRSA. Additionally, a sputum culture was obtained and is positive for MRSA as well. The patient was started on IV aztreonam and Zyvox on admission, but was transitioned from aztreonam 2 cefepime. The patient had some mild bleeding from the urethral meatus and urology was consulted. Currently, the patient is on IV cefepime and Zyvox. We've been asked to evaluate and make further recommendations. During my exam today, the patient endorses a history as stated above. He states that all day of admission he experienced severe chills and shortness of breath. He reports some intermittent headaches, but denies neck pain or stiffness. He denies any recent congestion, earache, or sore throat. He reports some substernal chest aching that is worse with cough or deep inspiration. He reports shortness of breath without exertion and a cough that is productive of thick sputum. He reports some nausea couple episodes of vomiting. He reports some dysuria and urinary frequency and states he felt like he was unable to completely empty his bladder so Jewell catheter was placed. He reports chronic pain in his extremities. He denies any oral thrush or new skin lesions. CC: Radha Sharp MD Past Med Surg Social Fam HX - Past Medical History Attestation: Yes The following information was validated with the patient. Source: patient, old records reviewed, nursing notes reviewed Medical history: arthritis, asthma, atrial fibrillation, cancer, COPD, coronary artery disease, diabetes, GERD, GI bleed, hyperlipidemia, hypertension, osteoporosis, peripheral artery disease, renal disease, thyroid disease, other ( Castleman's Disease, POEMS, tracheal stenosis) Psychiatric history: no psych history, other - Past Surgical History Surgical History: angioplasty/stent, appendectomy, arthroscopy, cholecystectomy , LE vascular intervention, orthopedic, other, sinus surgery, tracheostomy, vascular surgery, other (tracheostomy, a-port insertion x 2), pacemaker - Social History Smoking Status: Former smoker (120 pack year history) Smokeless Tobacco Status: No Alcohol use: none Drug use: none Occupational status: retired Current living situation: Home, With Family Activity Level: Uses cane/walker Recent Out of Country Travel Within the Last 8 Weeks: No Exposure or Possible Exposure to Illness During Travel: No - Family History Father Adopted: No Age: 59 Living Status: Hx Family Cardiac Disorders: No Hx Family Respiratory Disorders: No Hx Family Cancer: Yes Hx Family GI Disorders: No Hx Family Genitourinary Disorders: No Hx Family Endocrine Disorder: No Hx Family Musculoskeletal Disorders: No Hx Family Neuromuscular Disorders: No Hx Family Neurologic Disorders: No Hx Family HEENT Disorders: No Hx Family Autoimmune Disorders: No Hx Family Reproductive Disorders: No Hx Family Psychosocial Disorders: No Hx Family Medical Disorders: No Mother Adopted: No Age: 82 Family Member Ethnicity: Non- Living Status: Still Living Hx Family Cardiac Disorders: No Hx Family Respiratory Disorders: No Hx Family Cancer: No Hx Family GI Disorders: No Hx Family Genitourinary Disorders: Yes Hx Family Endocrine Disorder: No Hx Family Musculoskeletal Disorders: No Hx Family Neuromuscular Disorders: No Hx Family Neurologic Disorders: No Hx Family HEENT Disorders: No Hx Family Autoimmune Disorders: No Hx Family Reproductive Disorders: No Hx Family Psychosocial Disorders: No Hx Family Medical Disorders: No Infectious Disease-CN:Meds Allopurinol [Zyloprim] 100 mg PO BID 07/05/15 [History] Apixaban [Eliquis] 5 mg PO BID #0 07/05/15 [History] Budesonide/Formoterol 160/4.5 [Symbicort] 2 puff IH BIDR 07/05/15 [History] Digoxin [Lanoxin] 250 mcg PO QAM 07/05/15 [History] Fluticasone Propionate Nasal [Flonase] 1 spray NS DAILY 07/05/15 [History] Furosemide [Lasix] 40 mg PO BID 07/05/15 [History] Loratadine [Claritin] 10 mg PO HS 07/05/15 [History] Pioglitazone [Actos] 45 mg PO QAM 07/05/15 [History] Potassium Chloride 20 meq PO QAM 07/05/15 [History] Simvastatin [Zocor] 20 mg PO HS 07/05/15 [History] Aspirin 81 mg PO QAM 07/21/15 [History] Gabapentin [Neurontin] 800 mg PO TID 07/21/15 [History] Metoprolol [Lopressor] 100 mg PO BID 07/21/15 [History] Nitroglycerin 0.4 mg SL Q5MIN PRN 07/21/15 [History] Tamsulosin [Flomax] 0.4 mg PO QAM 07/21/15 [History] Albuterol Sulfate [Albuterol Inhaler] 2 puff IH Q6HR PRN #2 inhaler 11/30/15 [Rx ] Tiotropium [Spiriva] 1 cap IH DAILY 01/12/16 [History] Albuterol Neb [Proventil Neb] 2.5 mg IH TID PRN 01/27/16 [History] Levothyroxine [Synthroid] 88 mcg PO QAM #30 tablet 04/17/16 [Rx] Ergocalciferol (VITAMIN D2) [Vitamin D2 (50,000 UNIT)] 50,000 unit PO BARR [History] Morphine Sulfate 15 mg PO BID PRN #60 tablet 01/14/17 [Rx] Doxycycline 100 mg PO BID #30 capsule 02/21/17 [Rx] Guaifenesin [Mucinex] 600 mg PO BID 03/09/17 [History] Allergies vancomycin Allergy (Intermediate, Verified 03/11/17 12:35) See Comments Patient noted blistering on back both itching and burning; has received vancomycin twice in past having reaction both times, second time worse than first; patient's decription different than red man syndrome Amoxicillin Allergy (Mild, Verified 03/09/17 11:24) Rash ampicillin Allergy (Mild, Verified 03/09/17 11:24) Rash cefazolin Allergy (Mild, Verified 03/09/17 11:24) Rash cephalexin [From Keflex] Allergy (Mild, Verified 03/09/17 11:24) Rash levofloxacin [From Levaquin] Allergy (Mild, Verified 03/09/17 11:24) Blister Penicillins Allergy (Mild, Verified 03/09/17 11:24) Rash pramipexole [From Mirapex] Allergy (Mild, Verified 03/09/17 11:24) Rash Sulfa (Sulfonamide Antibiotics) Allergy (Mild, Verified 03/09/17 11:24) Rash ciprofloxacin [From Cipro] Allergy (Verified 03/09/17 11:24) Rash clindamycin Allergy (Verified 03/09/17 11:24) Rash Oxycodone Adverse Reaction (Severe, Verified 03/09/17 11:24) Unresponsive All systems: reviewed and no additional remarkable complaints except as stated Exam - Constitutional Vitals: Temp Pulse Resp BP Pulse Ox 96.2 F L 74 18 125/77 96 03/13/17 09:46 03/13/17 07:16 03/13/17 07:59 03/13/17 07:16 03/13/17 07:59 General appearance: average body habitus, cooperative, no acute distress - Head Head exam: Present: atraumatic, normal inspection, normocephalic - Eye Eye exam: Present: EOMI, normal appearance, PERRL Pupils: Present: normal accommodation Additional comments: No subconjunctival hemorrhage noted. - ENT ENT exam: Present: mucous membranes moist - Neck Neck exam: Present: normal inspection Additional comments: Tracheostomy midline with O2 via trach mask. No erythema or drainage noted from the stoma. - Respiratory Respiratory exam: Present: CTAB. Absent: rales, respiratory distress, rhonchi, wheezes - Cardiovascular Cardiovascular exam: Present: RRR, +S1, +S2 - GI/Abdominal GI/Abdominal exam: Present: normal bowel sounds, soft. Absent: distended, tenderness Additional comments: Jewell catheter noted to be draining clear, orange-tinted urine. - Extremities Exam Extremities exam: Present: normal inspection, pedal edema (1+ BLE). Absent: joint swelling, tenderness Additional comments: No endocarditis stigmata noted. - Back Exam Back exam: Present: normal inspection. Absent: paraspinal tenderness, vertebral tenderness - Neurological Exam Neurological exam: Present: alert, oriented X3, no focal deficits - Psychiatric Psychiatric exam: Present: normal affect, normal mood - Skin Skin exam: Present: dry, intact, normal color, warm - Additional findings Additional findings: Pacemaker noted to the right upper chest without erythema or tenderness. A-port noted to the right upper chest, currently accessed with Vergara needle. No erythema, drainage, or tenderness noted. Infectious Disease CN: Results - Labs CBC & Chem 7: 03/13/17 06:50 03/13/17 06:50 Cultures: Cultures 03/09/17 23:05 Sputum Culture - Final Sputum Methicillin Resistant S.aureus 03/09/17 15:22 Blood Culture - Final Peripheral Venipuncture Methicillin Resistant S.aureus 03/09/17 15:28 Blood Culture - Preliminary Peripheral Venipuncture No growth. 03/09/17 18:57 Influenza Types A,B Antigen (RAFITA) - Final Nasopharyngeal Serology: Serology 03/11/17 Range/Units 11:32 Nasal Screen MRSA (PCR) Positive A (Negative) Consult Discharge Plan - Plan Referrals: Ruy Rollins MD [Primary Care Provider] - (web request sent on 03/10/17- Patient is being sent to [facility], follow up will be set up by that facility)
[2017-03-13] MEDS ORDERED: DAPTOMYCIN IVPB SCH (12:00)
[2017-03-13] MEDS ORDERED: SODIUM CHLORIDE 0.9% IVPB SCH (12:00)
[2017-03-13] MEDS ORDERED: *HR* Alteplase (Cathflo) 2 MG VIAL IVP ONE (15:39)
[2017-03-13] MEDS ORDERED: predniSONE 20 MG TABLET PO SCH (18:00)
[2017-03-13 18:45] VITALS: BP 123/88
== END 2017-03-13 21:21 | disposition other institution (70) | DRG 871 ==
LOC: 2ANU 11:15 → EMEROO 11:15 → 2ANU 14:11 → SUATTDRO 14:52
PROVIDERS: ADMIT Hospitalist; ATTEND Internal Medicine

== ENCOUNTER 2019-08-01 15:40 | Inpatient (IN) ==
--- NOTE | 2019-08-01 16:15 | Emergency Department Note ---
Disposition Clinical Impression: Small bowel obstruction, Urinary retention Disposition: Admitted As Inpatient Condition: Good Referrals: Ruy Rollins MD [Partnered Physician] - Forms: ED Satisfaction Letter, Work/School Release Time of Disposition: 18:55 General Adult HPI - General Chief complaint: ED Abdominal Pain Stated complaint: ABD Pain,Unable to urinate Time Seen by Provider: 08/01/19 15:54 Source: patient Limitations: no limitations Nursing Notes Reviewed: Yes Vital Signs Reviewed: Yes - History of Present Illness HPI Narrative: Male patient presenting to emergency complaining of nausea and vomiting that started this morning. States he woke up and started vomiting. He then noticed that he had some lower abdominal pain. It was unable to urinate. Does have a history of enlarged prostate. States that he was unable to take any of his medication this morning secondary to his nausea and vomiting. He states that he also has had a productive cough recently. 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 Sees the [facility] and receives IVIG here. Patient denies any fevers or chills. Reports some burning on urination previously. Pain Scale: 10 - Related Data Home Medications Medication Instructions Recorded Confirmed Allopurinol [Zyloprim 100 MG] 300 mg PO DAILY 07/08/17 07/31/19 Apixaban [Eliquis] 5 mg PO BID 07/08/17 07/31/19 Aspirin [Lo-Dose Aspirin EC] 81 mg PO DAILY 07/08/17 07/31/19 Bumetanide [Bumex] 1 mg PO PMHY 07/08/17 07/31/19 Digoxin [Lanoxin] 0.125 mg PO DAILY 07/08/17 07/31/19 Fluticasone Propionate Nasal 2 inh NS BID PRN 07/08/17 07/31/19 [Flonase] Gabapentin [Neurontin] 800 mg PO TID 07/08/17 07/31/19 Guaifenesin [Mucinex] 600 mg PO Q12H 07/08/17 07/31/19 Levothyroxine [Synthroid] 88 mcg PO DAILY 07/08/17 07/31/19 Metoprolol [Lopressor] 100 mg PO BID 07/08/17 07/31/19 Potassium Chloride [K-Tab ER] 20 meq PO BID 07/08/17 07/31/19 Tamsulosin [Flomax] 0.4 mg PO DAILY 07/08/17 07/31/19 Tiotropium [Spiriva] 2 puff IH DAILY 07/08/17 07/31/19 Atorvastatin [Lipitor] 40 mg PO HS 08/06/17 07/31/19 Budesonide/Formoterol 160/4.5 2 puff IH BIDR 08/06/17 07/31/19 [Symbicort 160/4.5] Bumetanide [Bumex] 2 mg PO DAILY 08/06/17 07/31/19 Ergocalciferol (VITAMIN D2) 50,000 unit PO QWEEK 08/06/17 07/31/19 [Vitamin D2] Pioglitazone HCl [Actos] 15 mg PO DAILY 07/24/18 07/31/19 Previous Rx's Medication Instructions Recorded Morphine Sulfate Immed Rel 15 mg PO Q4HR PRN 30 Days #120 03/06/18 [Morphine Sulfate] tablet Cetirizine HCl [Zyrtec] 10 mg PO DAILY #14 tab.rapdis 05/02/18 Nitroglycerin [Nitrostat] 0.4 mg SL PRN PRN #30 tab.subl 07/24/18 Menthol [Cough Drops] 9.1 mg PO Q2H PRN lozenge 11/27/18 Azithromycin [Zithromax Tri-Ulisses] 500 mg PO DAILY 4 Days #4 tablet 05/27/19 Ondansetron ODT [Zofran ODT] 4 mg SL Q6HR PRN #10 tab.rapdis 07/31/19 Promethazine [Phenergan] 25 mg PO Q6HR PRN #10 tablet 07/31/19 Allergies Allergy/AdvReac Type Severity Reaction Status Date / Time vancomycin Allergy Intermediate See Verified 04/15/19 09:37 Comments cefazolin Allergy Mild Rash Verified 04/15/19 09:37 cephalexin [From Keflex] Allergy Mild Rash Verified 04/15/19 09:37 levofloxacin [From Levaquin] Allergy Mild Blister Verified 04/15/19 09:37 pramipexole [From Mirapex] Allergy Mild Rash Verified 04/15/19 09:37 Sulfa (Sulfonamide Allergy Mild Rash Verified 04/15/19 09:37 Antibiotics) ciprofloxacin [From Cipro] Allergy Rash Verified 04/15/19 09:37 clindamycin Allergy Rash Verified 04/15/19 09:37 oxycodone [Oxycodone] AdvReac Severe Unresponsiv Verified 04/15/19 09:37 e All systems ED: reviewed and negative except as stated. Review of Systems: As Per HPI Constitutional: Denies: fever, chills ENT ED: Reports: congestion Cardiovascular: Denies: chest pain Respiratory: Reports: cough, sputum production (green in color). Denies: dyspnea Gastrointestinal: Reports: abdominal pain (diffuse), nausea, vomiting. Denies: diarrhea, hematemesis, melena, hematochezia Genitourinary: Reports: dysuria (over the past week), frequency (unable to uriniate since early this morning). Denies: urgency Past Medical History - Past Medical History Attestation: Yes The following information was validated with the patient. Source: patient Medical history: Reports: arthritis, asthma, atrial fibrillation, cancer, COPD, coronary artery disease, diabetes, GERD, GI bleed, hyperlipidemia, hypertension, osteoporosis, peripheral artery disease, renal disease, thyroid disease, other Surgical history: Reports: angioplasty/stent, appendectomy, arthroscopy, cholecystectomy, LE vascular intervention, orthopedic, other, sinus surgery, tracheostomy, vascular surgery, other, pacemaker Psychiatric history: Reports: no psych history, other - Social History Smoking Status: Former smoker Smokeless Tobacco Status: No Alcohol use: Reports: none Drug use: Reports: none Physical Exam - General Limitations: no limitations General appearance: alert, other (appears uncomfortable) - Head Head exam: atraumatic, normocephalic, normal inspection - Eye Eye exam: Present: normal appearance, PERRL, EOMI - ENT ENT exam: normal exam, normal oropharynx, mucous membranes moist - Neck Neck exam: Present: normal inspection, full ROM, trachea midline, other (white sputum from tracheostomy) - Chest Chest inspection: Present: normal inspection, symmetric chest wall rise - Respiratory Respiratory exam: Present: other (coarse lung sounds throughout). Absent: respiratory distress, accessory muscle use - Cardiovascular Cardiovascular exam: Present: regular rate, normal rhythm, normal heart sounds - Abdominal Exam Abdominal exam: Present: soft, tenderness (diffusley. Multiple well healing scars to abdomen). Absent: distention, guarding, rebound, rigidity, organomegaly, Brower's sign, Rovsing's sign, tenderness at McBurney's Point - Extremities Exam Extremities exam: Present: normal inspection, full ROM, normal capillary refill. Absent: tenderness, pedal edema - Back Exam Back exam: Present: normal inspection, full ROM. Absent: tenderness - Neurological Exam Neurological exam: Present: alert, oriented X3 - Psychiatric Psychiatric exam: Present: normal affect, normal mood - Skin Skin exam: Present: warm, dry, intact, normal color. Absent: rash Course Course Narrative: Patient appears uncomfortable resting in bed. He is tachycardic. Nonfebrile. Abdomen is soft but tender throughout. Nondistended. No fluid wave. Well- healed scars on his abdomen. Bedside ultrasound performed by myself did show a distended bladder. However I do not believe this is likely the cause of his upper abdominal pain is not significantly distended. We did place a [place] and the patient. We will get a basic lab workup on patient as well as a CT of his abdomen and chest x-ray secondary to his cough and abdominal pain. He denies any hematochezia or melena. - Reevaluation(s) Reevaluation #1: After doing a chart search does appear the patient was at another facility last night. He did have lab work done there as well as a CT of his abdomen. The abdomen CT did show enteritis. He was also noted to have an elevated cr eatinine. His baseline creatinine is around 1.4-1.5. Patient's workup is still pending at this time. Time: 17:23 Reevaluation #2: Patient's workup concerning for small bowel obstruction. We did place the patient on IV fluids. We will admit to the hospital at this time. We did provide him with pain medication as well. He is agreeable with this plan. Heart rate responded appropriately to fluid administration. - Consultations Consultation #1: Dr Ordoñez accepted Pt in stable condition. Dr Iyer was made aware of the Pt. He is in the ED and will be seeing the Pt. Time: 18:50 Vital Signs Temperature 97.6 F 08/01/19 15:42 Pulse Rate 94 08/01/19 15:42 Respiratory Rate 19 08/01/19 15:42 Blood Pressure 170/98 08/01/19 15:42 O2 Sat by Pulse Oximetry 98 08/01/19 15:42 Temperature 97.6 F 08/01/19 15:42 Pulse Rate 98 08/01/19 17:44 Respiratory Rate 17 08/01/19 17:44 Blood Pressure 136/95 08/01/19 17:44 O2 Sat by Pulse Oximetry 93 08/01/19 17:44 Oxygen Delivery Oxygen Delivery Room Air Medical Decision Making - Medical Records Medical records reviewed: Yes I reviewed the patient's medical records. - Lab Data Lab results reviewed: Yes I reviewed the patient's lab results. Result diagrams: 08/01/19 17:12 08/01/19 17:12 Lab Results 08/01/19 08/01/19 08/01/19 Range/Units 16:56 17:12 17:12 WBC 9.9 (4.3-11.1) K/mcL RBC 6.60 H (4.19-5.50) M/mcL Hgb 18.6 H (12.9-16.9) g/dL Hct 56.9 H (37.5-50.1) % MCV 86.2 (83.0-100.0) fL MCH 28.2 (28.0-33.3) pg MCHC 32.7 (31.6-35.5) g/dL RDW 16.9 H (11.5-14.5) % Plt Count 174 (140-400) K/mcL MPV 10.6 (9.4-12.4) fL Immature Gran % 0.5 (0-4) % Seg Neutrophils % 75.7 % Lymphocytes % 18.3 % Monocytes % 4.1 % Eosinophils % 0.7 % Basophils % 0.7 % Neutrophils # 7.5 (1.6-8.9) K/mcL Lymphocytes # 1.8 (0.6-4.6) K/mcL Monocytes # 0.4 (0.0-1.3) K/mcL Eosinophils # 0.1 (0.0-0.6) K/mcL Basophils # 0.1 (0.0-0.2) K/mcL Sodium 138 (136-145) mEq/L Potassium 4.3 (3.5-5.1) mEq/L Chloride 97 L (98-107) mEq/L Carbon Dioxide 30 H (23-29) mEq/L BUN 26 H (8-23) mg/dL Creatinine 1.74 H (0.70-1.30) mg/dL Est GFR ( Amer) 48 L (> 60) Est GFR (Non-Af Amer) 40 L (> 60) BUN/Creatinine Ratio 15 (6-26) Glucose 139 H (70-105) mg/dL Calculated Osmolality 293 (280-300) Calcium 9.3 (8.6-10.3) mg/dL Total Bilirubin 1.0 (0.3-1.0) mg/dL Direct Bilirubin 0.2 (0.0-0.2) mg/dL Indirect Bilirubin 0.8 (0.0-1.2) mg/dL AST 27 (13-39) Units/L ALT 14 (7-52) Units/L Alkaline Phosphatase 91 (34-104) Units/L Serum Total Protein 6.6 (6.4-8.9) g/dL Albumin 4.1 (3.5-5.7) g/dL Globulin 2.5 (2.4-3.5) g/dL Albumin/Globulin Ratio 1.6 (1.1-2.2) Lipase 19 (11-82) Units/L Urine Color Yellow (Yellow) Urine Clarity Clear (Clear) Urine pH 6.0 (5.0-8.0) pH Units Ur Specific [place] 1.016 (1.010-1.025) Urine Protein Negative (Neg-Trace) mg/dL Urine Glucose (UA) Normal (Normal) mg/dL Urine Ketones Negative (Negative) mg/dL Urine Blood Small H (Negative) Urine Nitrite Negative (Negative) Urine Bilirubin Negative (Negative) Urine Urobilinogen Normal (Normal) mg/dL Ur Leukocyte Esterase Negative (Negative) Urine Microscopic RBC 5-15 H (0-3) per hpf Urine Microscopic WBC 0-3 (0-3) per hpf Ur Squamous Epith Cells Many H (None-Few) per lpf Urine Bacteria None Seen (None-Few) per hpf Hyaline Casts Few (None-Few) per lpf Ur Culture Indicated? NO (NO) - Radiology Data Radiology results reviewed: Yes I reviewed the patient's radiology results. Chest X-Ray 08/01/19 16:43 IMPRESSION: Bibasilar hypoaeration with linear opacification at the lung bases could represent atelectasis or pneumonia D/ / Bob Stern MD / Bob Stern MD Interpreting Provider: Bob Stern MD Abdomen/Pelvis CT 08/01/19 17:13 IMPRESSION: Findings concerning for small bowel obstruction. Transition point identified within the left lower quadrant. No evidence for free intraperitoneal air to suggest viscus perforation. Small amount of pelvic free fluid. D/ / Arik Molina MD / Arik Molina MD Interpreting Provider: Arik Molina MD - EKG Data EKG #1 EKG attestation: Yes I reviewed and interpreted this EKG. EKG results narrative: A. fib at a rate of 128. [place] interval was not measured. QRS duration is 143. QT is 353. QTC is 516. No signs of acute ischemia. Good R-wave progression. No signs of WPW or Brugada. No significant change from previous EKG dated 05/27/2019.
[2019-08-01] MEDS ORDERED: 0.9 % Sodium Chloride 500 ML IVC ONE (17:03)
[2019-08-01 17:08] LABS: Bilirubin,Urine Negative (Negative); Blood,Urine Small (Negative); Clarity,Urine Clear (Clear); Color,Urine Yellow (Yellow); Glucose,Urine (UA) Normal (Normal); Ketones,Urine Negative (Negative); Leukocyte Esterase,Urine Negative (Negative); Nitrite,Urine Negative (Negative); Protein,Urine Negative (Neg-Trace); Specific Gravity,Urine 1.016 (1.010-1.025); Urobilinogen,Urine Normal (Normal)
[2019-08-01 17:09] LABS: Bacteria,Urine None Seen per hpf (None-Few); Squamous Epithelial Cell,Urine Many per lpf (None-Few); WBC,Urine 0-3 per hpf (0-3)
[2019-08-01 17:23] LABS: Basophils # 0.1 K/mcL (0.0-0.2); Basophils % 0.7 %; Eosinophils # 0.1 K/mcL (0.0-0.6); Eosinophils % 0.7 %; Hemoglobin 18.6 g/dL (12.9-16.9); Immature Granulocytes % 0.5 % (0-4); Lymphocytes # 1.8 K/mcL (0.6-4.6); Lymphocytes % 18.3 %; Mean Corpuscular HGB Conc 32.7 g/dL (31.6-35.5); Mean Corpuscular Hemoglobin 28.2 pg (28.0-33.3); Mean Corpuscular Volume 86.2 fL (83.0-100.0); Mean Platelet Volume 10.6 fL (9.4-12.4); Monocytes # 0.4 K/mcL (0.0-1.3); Monocytes % 4.1 %; Neutrophils # 7.5 K/mcL (1.6-8.9); Platelet Count 174 K/mcL (140-400); Red Cell Distribution Width 16.9 % (11.5-14.5); Segmented Neutrophils % 75.7 %; White Blood Count 9.9 K/mcL (4.3-11.1)
[2019-08-01 17:24] LABS: Hematocrit 56.9 % (37.5-50.1)
[2019-08-01 17:27] LABS: Hyaline Casts,Urine Few per lpf (None-Few)
--- NOTE | 2019-08-01 17:40 | Internal Med History&Physical ---
Date of Encounter: 08/01/19 Time of Encounter: 17:38 Internal Medicine - H&P: HPI Chief complaint: Abdominal Pain Admitted From: Home Plans for Post Hospital Care: Home History of present illness: Mr. Vogel is a 64 year old male NIDDM Type II, and chronic respiratory failure with trach dependence 2/2 COPD and EMILY presents with abdominal pain. 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 - Social History Smoking Status: Former smoker Smokeless Tobacco Status: No Alcohol use: none Drug use: none - Family History Father Adopted: No Living Status: Hx Family Cardiac Disorders: No Hx Family Respiratory Disorders: No Hx Family Cancer: Yes Hx Family GI Disorders: No Hx Family Endocrine Disorder: No Hx Family Neuromuscular Disorders: No Hx Family Neurologic Disorders: No Hx Family HEENT Disorders: No Hx Family Autoimmune Disorders: No Mother Adopted: No Family Member Ethnicity: Non- Living Status: Still Living Hx Family Cardiac Disorders: No Hx Family Respiratory Disorders: No Hx Family Cancer: No Hx Family GI Disorders: No Hx Family Endocrine Disorder: No Hx Family Neuromuscular Disorders: No Hx Family Neurologic Disorders: No Hx Family HEENT Disorders: No Hx Family Autoimmune Disorders: No Internal Medicine - H&P: Meds Allopurinol [Zyloprim 100 MG] 300 mg PO DAILY 07/08/17 [History] Apixaban [Eliquis] 5 mg PO BID 07/08/17 [History] Aspirin [Lo-Dose Aspirin EC] 81 mg PO DAILY 07/08/17 [History] Bumetanide [Bumex] 1 mg PO PMHY 07/08/17 [History] Digoxin [Lanoxin] 0.125 mg PO DAILY 07/08/17 [History] Fluticasone Propionate Nasal [Flonase] 2 inh NS BID PRN 07/08/17 [History] Gabapentin [Neurontin] 800 mg PO TID 07/08/17 [History] Guaifenesin [Mucinex] 600 mg PO Q12H 07/08/17 [History] Levothyroxine [Synthroid] 88 mcg PO DAILY 07/08/17 [History] Metoprolol [Lopressor] 100 mg PO BID 07/08/17 [History] Potassium Chloride [K-Tab ER] 20 meq PO BID 07/08/17 [History] Tamsulosin [Flomax] 0.4 mg PO DAILY 07/08/17 [History] Tiotropium [Spiriva] 2 puff IH DAILY 07/08/17 [History] Atorvastatin [Lipitor] 40 mg PO HS 08/06/17 [History] Budesonide/Formoterol 160/4.5 [Symbicort 160/4.5] 2 puff IH BIDR 08/06/17 [History] Bumetanide [Bumex] 2 mg PO DAILY 08/06/17 [History] Ergocalciferol (VITAMIN D2) [Vitamin D2] 50,000 unit PO QWEEK 08/06/17 [History] Morphine Sulfate Immed Rel [Morphine Sulfate] 15 mg PO Q4HR PRN 30 Days #120 tablet 03/06/18 [Rx] Cetirizine HCl [Zyrtec] 10 mg PO DAILY #14 tab.rapdis 05/02/18 [Rx] Nitroglycerin [Nitrostat] 0.4 mg SL PRN PRN #30 tab.subl 07/24/18 [Rx] Pioglitazone HCl [Actos] 15 mg PO DAILY 07/24/18 [History] Menthol [Cough Drops] 9.1 mg PO Q2H PRN lozenge 11/27/18 [Rx] Azithromycin [Zithromax Tri-Ulisses] 500 mg PO DAILY 4 Days #4 tablet 05/27/19 [Rx] Ondansetron ODT [Zofran ODT] 4 mg SL Q6HR PRN #10 tab.rapdis 07/31/19 [Rx] Promethazine [Phenergan] 25 mg PO Q6HR PRN #10 tablet 07/31/19 [Rx] Allergy/AdvReac Type Severity Reaction Status Date / Time vancomycin Allergy Intermediate See Verified 04/15/19 09:37 Comments cefazolin Allergy Mild Rash Verified 04/15/19 09:37 cephalexin [From Keflex] Allergy Mild Rash Verified 04/15/19 09:37 levofloxacin [From Levaquin] Allergy Mild Blister Verified 04/15/19 09:37 pramipexole [From Mirapex] Allergy Mild Rash Verified 04/15/19 09:37 Sulfa (Sulfonamide Allergy Mild Rash Verified 04/15/19 09:37 Antibiotics) ciprofloxacin [From Cipro] Allergy Rash Verified 04/15/19 09:37 clindamycin Allergy Rash Verified 04/15/19 09:37 oxycodone [Oxycodone] AdvReac Severe Unresponsiv Verified 04/15/19 09:37 e Review of systems: General: Fevers / Chills / Weight loss / Night sweats Eyes: Blurry Vision / Change in Vision HENT: Ear Pain / Ear Drainage / Rhinorrhea / Throat Pain / Lymphadenopathy Cardiovascular: Chest Pain / Palpatations / Orthopnea / [place] / Weight gain Lungs: Dyspnea / Wheezing / Cough / Sputum production / Pleurisy Abdomen: Abdomen pain / Abdominal distention / Nausea / Vomiting / Diarrhea / Const : Dysuria / Urinary Frequency / Urinary Urgency / Hematuria Extremities: LE edema / Ext pain / Ext erythema Skin: Rashes / Abrasions / Contusions Psych: Hallucinations / Anxiety / Depression Neuro: Weakness / Numbness / Tingling / Facial Droop / Dysphagia - Constitutional Vitals: Temp Pulse Resp BP Pulse Ox 97.6 F 94 19 170/98 98 08/01/19 15:42 08/01/19 15:42 08/01/19 15:42 08/01/19 15:42 08/01/19 15:42 Internal Med - H&P Results - Labs CBC & Chem 7: 08/01/19 17:12 Labs: Short CBC 08/01/19 Range/Units 17:12 WBC 9.9 (4.3-11.1) K/mcL Hgb 18.6 H (12.9-16.9) g/dL Hct 56.9 H (37.5-50.1) % Plt Count 174 (140-400) K/mcL Neutrophils # 7.5 (1.6-8.9) K/mcL Urine 08/01/19 Range/Units 16:56 Urine Color Yellow (Yellow) Urine Clarity Clear (Clear) Urine pH 6.0 (5.0-8.0) pH Units Ur Specific [place] 1.016 (1.010-1.025) Urine Protein Negative (Neg-Trace) mg/dL Urine Glucose (UA) Normal (Normal) mg/dL - Impressions ITS Impressions Chest X-Ray 08/01/19 16:43 IMPRESSION: Bibasilar hypoaeration with linear opacification at the lung bases could represent atelectasis or pneumonia D/ / Bob Stern MD / Bob Stern MD Interpreting Provider: Bob Stern MD Abdomen/Pelvis CT 08/01/19 17:13 IMPRESSION: Findings concerning for small bowel obstruction. Transition point identified within the left lower quadrant. No evidence for free intraperitoneal air to suggest viscus perforation. Small amount of pelvic free fluid. D/ / Arik Molina MD / Arik Molina MD Interpreting Provider: Arik Molina MD - Time Spent With Patient Total time spent is greater than 50% in coordination of care (as documented) at patient's floor/unit and/or counseling patient:
[2019-08-01] MEDS ORDERED: Morphine Sulfate 2 MG/ML SYRINGE IVP STA (17:43)
[2019-08-01 17:52] LABS: Potassium 4.3 mEq/L (3.5-5.1)
[2019-08-01 18:03] LABS: Albumin 4.1 g/dL (3.5-5.7); Albumin/Globulin Ratio 1.6 (1.1-2.2); Bilirubin,Direct 0.2 mg/dL (0.0-0.2); Bilirubin,Indirect 0.8 mg/dL (0.0-1.2); Calcium 9.3 mg/dL (8.6-10.3); Globulin 2.5 g/dL (2.4-3.5); Total Protein 6.6 g/dL (6.4-8.9)
--- NOTE | 2019-08-01 18:14 | Emergency Department Note ---
Disposition Clinical Impression: Small bowel obstruction, Urinary retention Disposition: Admitted As Inpatient Condition: Good Time of Disposition: 18:55 General Adult HPI - General Chief complaint: ED Abdominal Pain Stated complaint: ABD Pain,Unable to urinate Time Seen by Provider: 08/01/19 15:54 Source: patient Limitations: no limitations - History of Present Illness Pain Scale: 10 - Related Data Home Medications Medication Instructions Recorded Confirmed Allopurinol [Zyloprim 100 MG] 300 mg PO DAILY 07/08/17 08/01/19 Apixaban [Eliquis] 5 mg PO BID 07/08/17 08/01/19 Aspirin [Lo-Dose Aspirin EC] 81 mg PO DAILY 07/08/17 08/01/19 Bumetanide [Bumex] 2 mg PO QPM 07/08/17 08/01/19 Digoxin [Lanoxin] 0.125 mg PO DAILY 07/08/17 08/01/19 Fluticasone Propionate Nasal 2 inh NS BID PRN 07/08/17 08/01/19 [Flonase] Gabapentin [Neurontin] 800 mg PO TID 07/08/17 08/01/19 Guaifenesin [Mucinex] 600 mg PO Q12H PRN 07/08/17 08/01/19 Levothyroxine [Synthroid] 88 mcg PO DAILY 07/08/17 08/01/19 Metoprolol [Lopressor] 100 mg PO BID 07/08/17 08/01/19 Potassium Chloride [K-Tab ER] 20 meq PO BID 07/08/17 08/01/19 Tamsulosin [Flomax] 0.4 mg PO DAILY 07/08/17 08/01/19 Tiotropium [Spiriva] 2 puff IH DAILY 07/08/17 08/01/19 Atorvastatin [Lipitor] 40 mg PO HS 08/06/17 08/01/19 Budesonide/Formoterol 160/4.5 2 puff IH BIDR 08/06/17 08/01/19 [Symbicort 160/4.5] Bumetanide [Bumex] 4 mg PO QAM 08/06/17 08/01/19 Ergocalciferol (VITAMIN D2) 50,000 unit PO QWEEK 08/06/17 08/01/19 [Vitamin D2] Pioglitazone HCl [Actos] 15 mg PO DAILY 07/24/18 08/01/19 Albuterol Neb [Proventil Neb] 2.5 mg IH TID 08/01/19 08/01/19 Clarithromycin [Biaxin] 500 mg PO BID 08/01/19 08/01/19 Doxycycline 100 mg PO DAILY 08/01/19 08/01/19 Loratadine [Claritin] 10 mg PO DAILY 08/01/19 08/01/19 Previous Rx's Medication Instructions Recorded Morphine Sulfate Immed Rel 15 mg PO Q4HR PRN 30 Days #120 03/06/18 [Morphine Sulfate] tablet Nitroglycerin [Nitrostat] 0.4 mg SL PRN PRN #30 tab.subl 07/24/18 Allergies Allergy/AdvReac Type Severity Reaction Status Date / Time vancomycin Allergy Intermediate See Verified 04/15/19 09:37 Comments cefazolin Allergy Mild Rash Verified 04/15/19 09:37 cephalexin [From Keflex] Allergy Mild Rash Verified 04/15/19 09:37 levofloxacin [From Levaquin] Allergy Mild Blister Verified 04/15/19 09:37 pramipexole [From Mirapex] Allergy Mild Rash Verified 04/15/19 09:37 Sulfa (Sulfonamide Allergy Mild Rash Verified 04/15/19 09:37 Antibiotics) ciprofloxacin [From Cipro] Allergy Rash Verified 04/15/19 09:37 clindamycin Allergy Rash Verified 04/15/19 09:37 oxycodone [Oxycodone] AdvReac Severe Unresponsiv Verified 04/15/19 09:37 e Constitutional: Denies: fever, chills ENT ED: Reports: congestion Cardiovascular: Denies: chest pain Respiratory: Reports: cough, sputum production (green in color). Denies: dyspnea Gastrointestinal: Reports: abdominal pain (diffuse), nausea, vomiting. Denies: diarrhea, hematemesis, melena, hematochezia Genitourinary: Reports: dysuria (over the past week), frequency (unable to urini ate since early this morning). Denies: urgency Past Medical History - Past Medical History Medical history: Reports: arthritis, asthma, atrial fibrillation, cancer, COPD, coronary artery disease, diabetes, GERD, GI bleed, hyperlipidemia, hypertension, osteoporosis, peripheral artery disease, renal disease, thyroid disease, other Surgical history: Reports: angioplasty/stent, appendectomy, arthroscopy, chol ecystectomy, LE vascular intervention, orthopedic, other, sinus surgery, tracheostomy, vascular surgery, other, pacemaker Psychiatric history: Reports: no psych history, other - Social History Smoking Status: Former smoker Smokeless Tobacco Status: No Alcohol use: Reports: none Drug use: Reports: none Physical Exam - General Limitations: no limitations General appearance: alert, other (appears uncomfortable) Course Vital Signs Temperature 97.6 F 08/01/19 15:42 Pulse Rate 94 08/01/19 15:42 Respiratory Rate 19 08/01/19 15:42 Blood Pressure 170/98 08/01/19 15:42 O2 Sat by Pulse Oximetry 98 08/01/19 15:42 Temperature 98.4 F 08/02/19 12:13 Pulse Rate 128 08/02/19 12:13 Respiratory Rate 17 08/02/19 12:13 Blood Pressure 120/72 08/02/19 12:13 O2 Sat by Pulse Oximetry 92 08/02/19 12:13 Oxygen Delivery Oxygen Delivery Trach Mask Medical Decision Making - Lab Data Result diagrams: 08/02/19 02:43 08/02/19 02:43 Lab Results 08/01/19 08/01/19 08/01/19 Range/Units 16:56 17:12 17:12 WBC 9.9 (4.3-11.1) K/mcL RBC 6.60 H (4.19-5.50) M/mcL Hgb 18.6 H (12.9-16.9) g/dL Hct 56.9 H (37.5-50.1) % MCV 86.2 (83.0-100.0) fL MCH 28.2 (28.0-33.3) pg MCHC 32.7 (31.6-35.5) g/dL RDW 16.9 H (11.5-14.5) % Plt Count 174 (140-400) K/mcL MPV 10.6 (9.4-12.4) fL Immature Gran % 0.5 (0-4) % Seg Neutrophils % 75.7 % Lymphocytes % 18.3 % Monocytes % 4.1 % Eosinophils % 0.7 % Basophils % 0.7 % Neutrophils # 7.5 (1.6-8.9) K/mcL Lymphocytes # 1.8 (0.6-4.6) K/mcL Monocytes # 0.4 (0.0-1.3) K/mcL Eosinophils # 0.1 (0.0-0.6) K/mcL Basophils # 0.1 (0.0-0.2) K/mcL Sodium 138 (136-145) mEq/L Potassium 4.3 (3.5-5.1) mEq/L Chloride 97 L (98-107) mEq/L Carbon Dioxide 30 H (23-29) mEq/L BUN 26 H (8-23) mg/dL Creatinine 1.74 H (0.70-1.30) mg/dL Est GFR ( Amer) 48 L (> 60) Est GFR (Non-Af Amer) 40 L (> 60) BUN/Creatinine Ratio 15 (6-26) Glucose 139 H (70-105) mg/dL Calculated Osmolality 293 (280-300) Calcium 9.3 (8.6-10.3) mg/dL Total Bilirubin 1.0 (0.3-1.0) mg/dL Direct Bilirubin 0.2 (0.0-0.2) mg/dL Indirect Bilirubin 0.8 (0.0-1.2) mg/dL AST 27 (13-39) Units/L ALT 14 (7-52) Units/L Alkaline Phosphatase 91 (34-104) Units/L Serum Total Protein 6.6 (6.4-8.9) g/dL Albumin 4.1 (3.5-5.7) g/dL Globulin 2.5 (2.4-3.5) g/dL Albumin/Globulin Ratio 1.6 (1.1-2.2) Lipase 19 (11-82) Units/L Urine Color Yellow (Yellow) Urine Clarity Clear (Clear) Urine pH 6.0 (5.0-8.0) pH Units Ur Specific [place] 1.016 (1.010-1.025) Urine Protein Negative (Neg-Trace) mg/dL Urine Glucose (UA) Normal (Normal) mg/dL Urine Ketones Negative (Negative) mg/dL Urine Blood Small H (Negative) Urine Nitrite Negative (Negative) Urine Bilirubin Negative (Negative) Urine Urobilinogen Normal (Normal) mg/dL Ur Leukocyte Esterase Negative (Negative) Urine Microscopic RBC 5-15 H (0-3) per hpf Urine Microscopic WBC 0-3 (0-3) per hpf Ur Squamous Epith Cells Many H (None-Few) per lpf Urine Bacteria None Seen (None-Few) per hpf Hyaline Casts Few (None-Few) per lpf Ur Culture Indicated? NO (NO) Attestation Statement - Attestation Attestation: I examined this patient and my medical decision-making was reviewed with the Resident Physician. I agree with the documented findings, disposition and t reatment plan as described except to the extent set forth below. Patient is a 64-year-old gentleman who presents to emergency department with chief complaint of abdominal pain. She states she was seen [facility] had a CT scan at that time states that today started having worsening pain also noticed that he was having urinary retention. Exam patient awake alert in no acute distress currently after having his bladder drained. The abdomen is soft but diffusely tender to palpation Medical decision management CT scan showed evidence of a small bowel obstruction the patient will be placed on bowel rest and the patient will be admitted to the hospital
[2019-08-01] MEDS ORDERED: Ondansetron 4 MG/2 ML VIAL IVP PRN (19:40)
[2019-08-01] MEDS ORDERED: 0.9 % Sodium Chloride 1,000 ML IVC SCH (19:45)
--- NOTE | 2019-08-01 20:30 | Internal Med History&Physical ---
Date of Encounter: 08/01/19 Time of Encounter: 20:18 Internal Medicine - H&P: HPI Chief complaint: Abdominal pain History of present illness: Mr. Vogel is a 64 year old male with a past medical history of Castleman's disease, POEMS syndrome, history of tracheal stenosis status post tracheostomy, COPD, coronary artery disease, diabetes, peripheral arterial disease, hyper tension and hyperlipidemia who presented to the ED with complaints of abdominal pain. Patient states around 7 PM last night developed acute onset generalized abdominal pain described as sharp, colicky associated with nausea. Pain persisted into today associated with 4 episodes of nonbloody bilious emesis today. CT scan of the abdomen concerning for small bowel obstruction. Patient also reporting symptoms of urinary retention. Patient otherwise denies any fever, chills, chest pain, shortness of breath, wheezing or lower extremity edema. On arrival vitals were stable. Laboratory workup notable for mild polycythemia of 18.6, and elevated creatinine from baseline concerning for LIA. Case was discussed with surgery. NG tube will be placed. 500 mL fluid bolus given in the ED. We will admit for small bowel obstruction and management of chronic disease. 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 - Social History Smoking Status: Former smoker Smokeless Tobacco Status: No Alcohol use: none Drug use: none - Family History Father Adopted: No Living Status: Age at : 59 Cause of : cancer Hx Family Cardiac Disorders: No Hx Family Respiratory Disorders: No Hx Family Cancer: Yes Hx Family GI Disorders: No Hx Family Endocrine Disorder: No Hx Family Neuromuscular Disorders: No Hx Family Neurologic Disorders: No Hx Family HEENT Disorders: No Hx Family Autoimmune Disorders: No Mother Adopted: No Family Member Ethnicity: Non- Living Status: Still Living Hx Family Cardiac Disorders: No Hx Family Respiratory Disorders: No Hx Family Cancer: No Hx Family GI Disorders: No Hx Family Endocrine Disorder: No Hx Family Neuromuscular Disorders: No Hx Family Neurologic Disorders: No Hx Family HEENT Disorders: No Hx Family Autoimmune Disorders: No Internal Medicine - H&P: Meds Apixaban [Eliquis] 5 mg PO BID 07/08/17 [History] Aspirin [Lo-Dose Aspirin EC] 81 mg PO DAILY 07/08/17 [History] Digoxin [Lanoxin] 0.125 mg PO DAILY 07/08/17 [History] Fluticasone Propionate Nasal [Flonase] 100 mcg NS BID PRN 07/08/17 [History] Gabapentin [Neurontin] 800 mg PO TID 07/08/17 [History] Guaifenesin [Mucinex] 600 mg PO Q12H PRN 07/08/17 [History] Levothyroxine [Synthroid] 88 mcg PO QAM 07/08/17 [History] Metoprolol [Lopressor] 100 mg PO BID 07/08/17 [History] Potassium Chloride [K-Tab ER] 20 meq PO BID 07/08/17 [History] Tamsulosin [Flomax] 0.4 mg PO DAILY 07/08/17 [History] Tiotropium [Spiriva] 2 puff IH DAILY 07/08/17 [History] Atorvastatin [Lipitor] 40 mg PO HS 08/06/17 [History] Budesonide/Formoterol 160/4.5 [Symbicort 160/4.5] 2 puff IH BIDR 08/06/17 [History] Ergocalciferol (VITAMIN D2) [Vitamin D2] 50,000 unit PO QWEEK 08/06/17 [History] Nitroglycerin [Nitrostat] 0.4 mg SL PRN PRN #30 tab.subl 07/24/18 [Rx] Pioglitazone HCl [Actos] 15 mg PO DAILY 07/24/18 [History] Albuterol Neb [Proventil Neb] 2.5 mg IH TID PRN 08/01/19 [History] Clarithromycin [Biaxin] 500 mg PO BID 08/01/19 [History] Loratadine [Claritin] 10 mg PO DAILY 08/01/19 [History] Allopurinol [Zyloprim 300 MG] 300 mg PO DAILY 08/02/19 [History] Bumetanide 2 mg PO QPM 08/02/19 [History] Bumetanide 4 mg PO QAM 08/02/19 [History] Doxycycline Monohydrate [Mondoxyne Nl] 100 mg PO DAILY 08/02/19 [History] hydrOXYzine HCl [Hydroxyzine HCl] 12.5 - 50 mg PO Q8H PRN 08/02/19 [History] Allergy/AdvReac Type Severity Reaction Status Date / Time vancomycin Allergy Intermediate See Verified 08/02/19 16:09 Comments cefazolin Allergy Mild Rash Verified 08/02/19 16:09 cephalexin [From Keflex] Allergy Mild Rash Verified 08/02/19 16:09 levofloxacin [From Levaquin] Allergy Mild Blister Verified 08/02/19 16:09 pramipexole [From Mirapex] Allergy Mild Rash Verified 08/02/19 16:09 Sulfa (Sulfonamide Allergy Mild Rash Verified 08/02/19 16:09 Antibiotics) ciprofloxacin [From Cipro] Allergy Rash Verified 08/02/19 16:09 clindamycin Allergy Rash Verified 08/02/19 16:09 oxycodone [Oxycodone] AdvReac Severe Unresponsiv Verified 08/02/19 16:09 e All Systems PM: A 10-system review of systems was performed and is negative for pertinent findings except as documented above in the HPI. - Constitutional Constitutional: no chills, no fever(s), no night sweats - EENT Eyes: no change in vision, no discharge, no pain, no photophobia Ears: no ear discharge, no ear pain, no tinnitus Nose, mouth and throat: no dysphagia, no nasal discharge, no neck pain, no sore throat - Cardiovascular Cardiovascular ROS IM: no chest pain, no diaphoresis, no dyspnea, no lightheadedness, no palpitations, no syncope - Respiratory Respiratory: no cough, no dyspnea, no wheezing, no excessive phlegm production - Gastrointestinal Gastrointestinal: no abdominal pain, no diarrhea, no hematemesis, no hematochezia, no melena, no nausea, no vomiting - Musculoskeletal Musculoskeletal ROS IM: no numbness, no tingling - Integumentary Integumentary IM: no rash, no unusual bruising - Neurological Neurological ROS: no confusion, no convulsions, no focal weakness, no numbness, no tingling, no tremor(s) - Hematologic/Lymphatic Hematologic/Lymphatic: no easy bruising - Constitutional Vitals: Temp Pulse Resp BP Pulse Ox 97.6 F 98 16 123/97 93 08/01/19 15:42 08/01/19 17:44 08/01/19 19:35 08/01/19 19:35 08/01/19 17:44 Exam: General: Alert and oriented 3 Skin:Normal color, no rash, no lesions. HEENT:EOM, pupils equal, round and reactive. Cardiovascular:Normal S1 & S2, no rubs, murmurs or gallops. No JVD. Pulse regular. Lungs: Trach collar in place. Normal breath sounds, no wheezes or crackles. Abdomen:Soft, mildly distended with tenderness to palpation in the right lower quadrant Extremities:No deformity, no edema or tenderness, no joint swelling or clubbing. Neurological:Normal cognition and motor skills. Pulses:Carotid and radial pulses normal +2. Rest of the physical exam is non contributory Internal Med - H&P Results - Labs CBC & Chem 7: 08/02/19 02:43 08/02/19 02:43 Labs: Short CBC 08/01/19 Range/Units 17:12 WBC 9.9 (4.3-11.1) K/mcL Hgb 18.6 H (12.9-16.9) g/dL Hct 56.9 H (37.5-50.1) % Plt Count 174 (140-400) K/mcL Neutrophils # 7.5 (1.6-8.9) K/mcL BMP 08/01/19 17:12 Sodium 138 Potassium 4.3 Chloride 97 L Carbon Dioxide 30 H BUN 26 H Creatinine 1.74 H Glucose 139 H Calcium 9.3 Liver Function 08/01/19 Range/Units 17:12 Total Bilirubin 1.0 (0.3-1.0) mg/dL Direct Bilirubin 0.2 (0.0-0.2) mg/dL AST 27 (13-39) Units/L ALT 14 (7-52) Units/L Alkaline Phosphatase 91 (34-104) Units/L Albumin 4.1 (3.5-5.7) g/dL Urine 08/01/19 Range/Units 16:56 Urine Color Yellow (Yellow) Urine Clarity Clear (Clear) Urine pH 6.0 (5.0-8.0) pH Units Ur Specific [place] 1.016 (1.010-1.025) Urine Protein Negative (Neg-Trace) mg/dL Urine Glucose (UA) Normal (Normal) mg/dL - Impressions ITS Impressions Chest X-Ray 08/01/19 16:43 IMPRESSION: Bibasilar hypoaeration with linear opacification at the lung bases could represent atelectasis or pneumonia D/ / Bob Stern MD / Bob Stern MD Interpreting Provider: Bob Stern MD Abdomen/Pelvis CT 08/01/19 17:13 IMPRESSION: Findings concerning for small bowel obstruction. Transition point identified within the left lower quadrant. No evidence for free intraperitoneal air to suggest viscus perforation. Small amount of pelvic free fluid. D/ / Arik Molina MD / Arik Molina MD Interpreting Provider: Arik Molina MD - Assessment and Plan (1) Small bowel obstruction Current Visit: Yes Status: Acute Assessment and plan: Patient presenting with acute onset abdominal pain associated with nonbloody bilious emesis 4. CT scan findings concerning for small bowel obstruction. NG tube currently being placed. We will start patient on supportive fluids and pain management. Dr. Santiago with acute care surgery evaluated patient while in the ED. -We will continue supportive fluids -pain management as needed -follow-up with surgery. (2) LIA (acute kidney injury) Current Visit: No Status: Suspected Assessment and plan: Patient presenting with what appears to be acute kidney injury based on laboratory findings with a creatinine of 1.74. Baseline appears to be around 1.2. Possible prerenal in the setting of small bowel obstruction with 4 episodes of vomiting. Patient also reporting difficulty voiding concerning for postobstructive etiology, however, no evidence of hydronephrosis seen on CT of the abdomen and pelvis. -Patient received 500 bolus normal saline in the ED. We will maintain on maintenance fluids -We will reassess kidney function in the morning -Avoid any other nephrotoxic medications at this time (3) Urinary retention Current Visit: Yes Status: Acute Assessment and plan: Patient reporting any difficulty with voiding. Currently on tamsulosin for possible underlying BPH, however, current abdominal distention and obstruction may be contributing. [place] catheter placed in the ED. -Continue treatment of underlying disease -Consider urology after management of SBO if symptoms of urinary retention persist assuming failed voiding trial. (4) Abdominal pain Current Visit: No Status: Acute Assessment and plan: Likely secondary to SBO. See management above. Qualifiers: Abdominal location: generalized Qualified Code(s): R10.84 - Generalized abd ominal pain (5) CAD (coronary artery disease) Current Visit: No Status: Chronic Assessment and plan: Reported history of coronary artery disease. No reports of chest pain at this time. -Given NPO status, holding medical management of patient's CAD. -We will give Lopressor IV as well as for patient's A. fib history Qualifiers: Coronary Disease-Associated Artery/Lesion type: [place] artery [place] vs. transplanted heart: [place] heart Associated angina: without angina Qualified Code(s): I25.10 - Atherosclerotic heart disease of [place] coronary artery without angina pectoris (6) COPD (chronic obstructive pulmonary disease) Current Visit: No Status: Chronic Assessment and plan: No evidence of acute exacerbation. 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 Qualifiers: Diabetes mellitus type: type 2 Diabetes mellitus rn long term care insulin use: without fdc use Diabetes mellitus complication status: without complication Qualified Code(s): E11.9 - Type 2 diabetes mellitus without complications (9) Hypertension Current Visit: No Status: Chronic Assessment and plan: Blood pressure stable. 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 -Heart rate in the 120s to 130s on arrival to the floor. Patient last took his home medications yesterday morning. -We will obtain an EKG to verify atrial fibrillation -We will start on when necessary Lopressor as needed -Consider placing patient on heparin drip in the morning if patient continues to remain NPO Qualifiers: Atrial fibrillation type: paroxysmal Qualified Code(s): I48.0 - Paroxysmal atrial fibrillation (12) DVT prophylaxis Current Visit: Yes Status: Acute - Time Spent With Patient Total time spent is greater than 50% in coordination of care (as documented) at patient's floor/unit and/or counseling patient:
[2019-08-01] MEDS ORDERED: Naloxone 0.4 MG/ML INJ IVP PRN (20:40)
[2019-08-01] MEDS ORDERED: *HR* Dextrose 50 % in Water (Syg) 50 ML SYRINGE IVP PRN (20:41)
[2019-08-01] MEDS ORDERED: D5% in Water 1,000 ML IVC PRN (20:41)
[2019-08-01] MEDS ORDERED: Dextrose Gel 15 GM/37.5 ML TUBE PO PRN ×2 (20:41)
[2019-08-01] MEDS: *HR* Heparin 5,000 UNIT/ML VIAL SQ SCH (21:46)
[2019-08-01] MEDS: *HR* Metoprolol 5 MG/5 ML VIAL IVP PRN (21:47)
--- NOTE | 2019-08-01 21:50 | AcuteCare Surgery Consult Note ---
Date of Encounter: 08/01/19 Time of Encounter: 21:47 Assessment and Plan (1) Small bowel obstruction Current Visit: Yes Status: Acute 64M with small bowel obstruction; HDS; place NG tube (18fr) to LIWS replace electrolytes NPO - bowel rest IVF activity as tolerated awaiting return of bowel function; plan for SBFT to eval for obstruction; serial exams will cont to follow History of Present Illness Consult date: 08/01/19 Reason for consult: abdominal pain History of present illness: 64M PMH significant for Castleman's disease, POEMS syndrome, history of tracheal stenosis status post tracheostomy, COPD, CAD, DM, PVD, HLD, prior history of open dennis, open appy, and intraabdominal lympoh node excision who presents with 2 days of worsening abdominal pain. The pain is localized to the mid abdomen, non radiating, rated 8/10, with no identifiable alleviating or exacerbating factors. It is associated nausea, bilious vomiting, and fewer and fewer bowel movements and flatus. His last episode was one day prior to evaluation in the ED. The patient has never had anything like this happen before. 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 - Social History Smoking Status: Former smoker Smokeless Tobacco Status: No Alcohol use: none Drug use: none - Family History Father Adopted: No Living Status: Age at : 59 Cause of : cancer Hx Family Cardiac Disorders: No Hx Family Respiratory Disorders: No Hx Family Cancer: Yes Hx Family GI Disorders: No Hx Family Endocrine Disorder: No Hx Family Neuromuscular Disorders: No Hx Family Neurologic Disorders: No Hx Family HEENT Disorders: No Hx Family Autoimmune Disorders: No Mother Adopted: No Family Member Ethnicity: Non- Living Status: Still Living Hx Family Cardiac Disorders: No Hx Family Respiratory Disorders: No Hx Family Cancer: No Hx Family GI Disorders: No Hx Family Endocrine Disorder: No Hx Family Neuromuscular Disorders: No Hx Family Neurologic Disorders: No Hx Family HEENT Disorders: No Hx Family Autoimmune Disorders: No Medications and Allergies Allopurinol [Zyloprim 100 MG] 300 mg PO DAILY 07/08/17 [History] Apixaban [Eliquis] 5 mg PO BID 07/08/17 [History] Aspirin [Lo-Dose Aspirin EC] 81 mg PO DAILY 07/08/17 [History] Bumetanide [Bumex] 2 mg PO QPM 07/08/17 [History] Digoxin [Lanoxin] 0.125 mg PO DAILY 07/08/17 [History] Fluticasone Propionate Nasal [Flonase] 2 inh NS BID PRN 07/08/17 [History] Gabapentin [Neurontin] 800 mg PO TID 07/08/17 [History] Guaifenesin [Mucinex] 600 mg PO Q12H PRN 07/08/17 [History] Levothyroxine [Synthroid] 88 mcg PO DAILY 07/08/17 [History] Metoprolol [Lopressor] 100 mg PO BID 07/08/17 [History] Potassium Chloride [K-Tab ER] 20 meq PO BID 07/08/17 [History] Tamsulosin [Flomax] 0.4 mg PO DAILY 07/08/17 [History] Tiotropium [Spiriva] 2 puff IH DAILY 07/08/17 [History] Atorvastatin [Lipitor] 40 mg PO HS 08/06/17 [History] Budesonide/Formoterol 160/4.5 [Symbicort 160/4.5] 2 puff IH BIDR 08/06/17 [H istory] Bumetanide [Bumex] 4 mg PO QAM 08/06/17 [History] Ergocalciferol (VITAMIN D2) [Vitamin D2] 50,000 unit PO QWEEK 08/06/17 [History] Morphine Sulfate Immed Rel [Morphine Sulfate] 15 mg PO Q4HR PRN 30 Days #120 tablet 03/06/18 [Rx] Nitroglycerin [Nitrostat] 0.4 mg SL PRN PRN #30 tab.subl 07/24/18 [Rx] Pioglitazone HCl [Actos] 15 mg PO DAILY 07/24/18 [History] Albuterol Neb [Proventil Neb] 2.5 mg IH TID 08/01/19 [History] Clarithromycin [Biaxin] 500 mg PO BID 08/01/19 [History] Doxycycline 100 mg PO DAILY 08/01/19 [History] Loratadine [Claritin] 10 mg PO DAILY 08/01/19 [History] Allergy/AdvReac Type Severity Reaction Status Date / Time vancomycin Allergy Intermediate See Verified 04/15/19 09:37 Comments cefazolin Allergy Mild Rash Verified 04/15/19 09:37 cephalexin [From Keflex] Allergy Mild Rash Verified 04/15/19 09:37 levofloxacin [From Levaquin] Allergy Mild Blister Verified 04/15/19 09:37 pramipexole [From Mirapex] Allergy Mild Rash Verified 04/15/19 09:37 Sulfa (Sulfonamide Allergy Mild Rash Verified 04/15/19 09:37 Antibiotics) ciprofloxacin [From Cipro] Allergy Rash Verified 04/15/19 09:37 clindamycin Allergy Rash Verified 04/15/19 09:37 oxycodone [Oxycodone] AdvReac Severe Unresponsiv Verified 04/15/19 09:37 e Review of Systems All systems PM: 12 point ROS negative besides HPI findings General Surgery Exam Initial Vital Signs Temp Pulse Resp BP Pulse Ox 97.6 F 94 19 170/98 98 08/01/19 15:42 08/01/19 15:42 08/01/19 15:42 08/01/19 15:42 08/01/19 15:42 - General physical appearance no distress - Eyes PERRL, normal ocular movement - ENT normocephalic - Neck trachea midline, no lymphadectomy - Respiratory normal expansion, normal respiratory effort - Cardiovascular Cardiovascular exam: Present: RRR - Abdomen Abdomen general surgery: Present: soft, distended, tender (non peritoneal) - Integumentary Integumentary general surgery: Present: warm and dry, no abnormal pigmentation - Neurologic Present: CN 2-12 grossly intact - Musculoskeletal Present: normal posture - Psychiatric Psychiatric general surgery: Present: A&Ox3 Exam Initial Vital Signs Temp Pulse Resp BP Pulse Ox 97.6 F 94 19 170/98 98 08/01/19 15:42 08/01/19 15:42 08/01/19 15:42 08/01/19 15:42 08/01/19 15:42 Results - Labs 08/01/19 17:12 08/01/19 17:12 Abnormal lab results RBC 6.60 M/mcL (4.19-5.50) H 08/01/19 17:12 Hgb 18.6 g/dL (12.9-16.9) H 08/01/19 17:12 Hct 56.9 % (37.5-50.1) H 08/01/19 17:12 RDW 16.9 % (11.5-14.5) H 08/01/19 17:12 Chloride 97 mEq/L (98-107) L 08/01/19 17:12 Carbon Dioxide 30 mEq/L (23-29) H 08/01/19 17:12 BUN 26 mg/dL (8-23) H 08/01/19 17:12 Creatinine 1.74 mg/dL (0.70-1.30) H 08/01/19 17:12 Est GFR ( Amer) 48 (> 60) L 08/01/19 17:12 Est GFR (Non-Af Amer) 40 (> 60) L 08/01/19 17:12 Glucose 139 mg/dL (70-105) H 08/01/19 17:12 Urine Blood Small (Negative) H 08/01/19 16:56 Urine Microscopic RBC 5-15 per hpf (0-3) H 08/01/19 16:56 Ur Squamous Epith Cells Many per lpf (None-Few) H 08/01/19 16:56 Diabetes panel 08/01/19 Range/Units 17:12 Sodium 138 (136-145) mEq/L Potassium 4.3 (3.5-5.1) mEq/L Chloride 97 L (98-107) mEq/L Carbon Dioxide 30 H (23-29) mEq/L BUN 26 H (8-23) mg/dL Creatinine 1.74 H (0.70-1.30) mg/dL Glucose 139 H (70-105) mg/dL Calcium 9.3 (8.6-10.3) mg/dL AST 27 (13-39) Units/L ALT 14 (7-52) Units/L Alkaline Phosphatase 91 (34-104) Units/L Albumin 4.1 (3.5-5.7) g/dL Calcium panel 08/01/19 Range/Units 17:12 Calcium 9.3 (8.6-10.3) mg/dL Albumin 4.1 (3.5-5.7) g/dL Pituitary panel 08/01/19 Range/Units 17:12 Sodium 138 (136-145) mEq/L Potassium 4.3 (3.5-5.1) mEq/L Chloride 97 L (98-107) mEq/L Carbon Dioxide 30 H (23-29) mEq/L BUN 26 H (8-23) mg/dL Creatinine 1.74 H (0.70-1.30) mg/dL Glucose 139 H (70-105) mg/dL Calcium 9.3 (8.6-10.3) mg/dL Adrenal panel 08/01/19 Range/Units 17:12 Sodium 138 (136-145) mEq/L Potassium 4.3 (3.5-5.1) mEq/L Chloride 97 L (98-107) mEq/L Carbon Dioxide 30 H (23-29) mEq/L BUN 26 H (8-23) mg/dL Creatinine 1.74 H (0.70-1.30) mg/dL Glucose 139 H (70-105) mg/dL Calcium 9.3 (8.6-10.3) mg/dL Total Bilirubin 1.0 (0.3-1.0) mg/dL AST 27 (13-39) Units/L ALT 14 (7-52) Units/L Alkaline Phosphatase 91 (34-104) Units/L Albumin 4.1 (3.5-5.7) g/dL All other labs normal. - Imaging CT scan - abdomen: report reviewed, image reviewed CT scan - pelvis: report reviewed, image reviewed Consult Discharge Plan - Plan Referrals: Ruy Rollins MD [Primary Care Provider] -
[2019-08-01] MEDS: Budesonide/Formoterol 160/4.5 1 PUFF INH IH SCH (22:24)
[2019-08-02] MEDS: Insulin LISPRO 300 UNITS/3 ML VIAL SQ SCH ×4 (00:15→18:27)
[2019-08-02] MEDS: Albuterol 2.5 MG/3 ML NEBULIZER IH SCH ×3 (00:31→16:34)
[2019-08-02 03:06] LABS: Basophils % 0.4 %; Eosinophils # 0.1 K/mcL (0.0-0.6); Eosinophils % 1.3 %; Hematocrit 53.7 % (37.5-50.1); Hemoglobin 17.3 g/dL (12.9-16.9); Immature Granulocytes % 0.4 % (0-4); Lymphocytes # 1.7 K/mcL (0.6-4.6); Lymphocytes % 19.1 %; Mean Corpuscular HGB Conc 32.2 g/dL (31.6-35.5); Mean Corpuscular Hemoglobin 28.1 pg (28.0-33.3); Mean Corpuscular Volume 87.2 fL (83.0-100.0); Mean Platelet Volume 10.9 fL (9.4-12.4); Monocytes # 0.6 K/mcL (0.0-1.3); Monocytes % 6.3 %; Neutrophils # 6.6 K/mcL (1.6-8.9); Platelet Count 149 K/mcL (140-400); Red Blood Count 6.16 M/mcL (4.19-5.50); Red Cell Distribution Width 16.2 % (11.5-14.5); Segmented Neutrophils % 72.5 %; White Blood Count 9.1 K/mcL (4.3-11.1)
[2019-08-02 03:14] LABS: INR 1.6; Prothrombin Time 17.7 Seconds (9.4-12.1)
[2019-08-02 03:26] LABS: Magnesium 1.7 mg/dL (1.6-2.6)
[2019-08-02] MEDS: *HR* Metoprolol 5 MG/5 ML VIAL IVP PRN ×3 (04:24→22:15)
[2019-08-02] MEDS: *HR* Heparin 5,000 UNIT/ML VIAL SQ SCH ×3 (05:17→22:15)
[2019-08-02 07:38] LABS: Calcium 8.8 mg/dL (8.6-10.3); Potassium 4.2 mEq/L (3.5-5.1)
[2019-08-02] MEDS ORDERED: Morphine Sulfate 2 MG/ML SYRINGE IVP PRN (09:38)
[2019-08-02] MEDS ORDERED: Ondansetron 4 MG/2 ML VIAL IVP PRN (09:39)
[2019-08-02] MEDS: Budesonide/Formoterol 160/4.5 1 PUFF INH IH SCH ×2 (10:48→21:05)
--- NOTE | 2019-08-02 11:41 | Internal Med Progress Note ---
Hospitalist Progress Note - Encounter Date of Encounter: 08/02/19 Time of Encounter: 11:38 - Subjective Interval History: Patient was seen and examined at bedside today. Patient reports of abdominal pain diffuse, 8 of 10 in severity, without any aggravating and relieving factors. Patient reports that he has vomited 4 times yesterday, however denies any vomiting overnight. Denies any nausea. Denies fever and chills. He reports that he has lost some flatus, but no bowel movement. - Exam Vitals: Temp Pulse Resp BP Pulse Ox 98.5 F 109 17 134/96 95 08/02/19 08:32 08/02/19 08:32 08/02/19 08:32 08/02/19 08:32 08/02/19 08:32 Exam: General: Alert and oriented 3 Skin:Normal color, no rash, no lesions. Cardiovascular:Normal S1 & S2, no rubs, murmurs or gallops. No JVD. Pulse regular. Lungs: Trach collar in place. Normal breath sounds, no wheezes or crackles. Abdomen:Soft, mildly distended with tenderness to palpation lower quadrants Extremities:No deformity, no edema or tenderness, no joint swelling or clubbing. Neurological:Normal cognition and motor skills. Pulses:Carotid and radial pulses normal +2. - Assessment and Plan (1) Small bowel obstruction Current Visit: Yes Status: Acute Assessment and Plan: Patient presenting with acute onset abdominal pain associated with nonbloody bilious emesis 4. CT scan findings concerning for small bowel obstruction. -We will continue supportive fluids -IV morphine as needed -We will continue NG tube drainage. Plan for SBFT later today or tomorrow. (2) LIA (acute kidney injury) Current Visit: No Status: Suspected Assessment and Plan: Creatinine is down trending. We will continue fluid support. BMP tomorrow. (3) Urinary retention Current Visit: Yes Status: Acute Assessment and Plan: Patient reporting any difficulty with voiding. Currently on tamsulosin for possible underlying BPH, however, current abdominal distention and obstruction may be contributing. [place] catheter placed on admission. We will continue to monitor. 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 (8) Hypertension Current Visit: No Status: Chronic Assessment and Plan: Blood pressure stable. We will treat as needed with IV antihypertensives (9) POEMS syndrome Current Visit: No Status: Chronic (10) Atrial fibrillation Current Visit: No Status: Chronic Assessment and Plan: Patient was placed on as needed Lopressor 5 mg IV push. Will hold Eliquis per surgery recommendation. (11) DVT prophylaxis Current Visit: Yes Status: Acute Assessment and Plan: SC Heparin - Time Spent with Patient Total time spent is greater than 50% in coordination of care (as documented) at patient's floor/unit and/or counseling patient: 25 - 35 minutes Plan of Care Discussed with: patient Internal Medicine: Result - Labs CBC & Chem 7: 08/02/19 02:43 08/02/19 02:43 Labs: Short CBC 08/01/19 08/02/19 Range/Units 17:12 02:43 WBC 9.9 9.1 (4.3-11.1) K/mcL Hgb 18.6 H 17.3 H (12.9-16.9) g/dL Hct 56.9 H 53.7 H (37.5-50.1) % Plt Count 174 149 (140-400) K/mcL Neutrophils # 7.5 6.6 (1.6-8.9) K/mcL BMP 08/01/19 08/02/19 17:12 02:43 Sodium 138 144 Potassium 4.3 4.2 Chloride 97 L 100 Carbon Dioxide 30 H 32 H BUN 26 H 26 H Creatinine 1.74 H 1.58 H Glucose 139 H 122 H Calcium 9.3 8.8 Liver Function 08/01/19 Range/Units 17:12 Total Bilirubin 1.0 (0.3-1.0) mg/dL Direct Bilirubin 0.2 (0.0-0.2) mg/dL AST 27 (13-39) Units/L ALT 14 (7-52) Units/L Alkaline Phosphatase 91 (34-104) Units/L Albumin 4.1 (3.5-5.7) g/dL Urine 08/01/19 Range/Units 16:56 Urine Color Yellow (Yellow) Urine Clarity Clear (Clear) Urine pH 6.0 (5.0-8.0) pH Units Ur Specific [place] 1.016 (1.010-1.025) Urine Protein Negative (Neg-Trace) mg/dL Urine Glucose (UA) Normal (Normal) mg/dL - ABG Interpretation ABG results: PT/INR, D-dimer PT 17.7 Seconds (9.4-12.1) H 08/02/19 02:43 - Impressions Impressions Chest X-Ray 08/01/19 16:43 IMPRESSION: Bibasilar hypoaeration with linear opacification at the lung bases could represent atelectasis or pneumonia D/ / Bob Stern MD / Bob Stern MD Interpreting Provider: Bob Stern MD Abdomen/Pelvis CT 08/01/19 17:13 IMPRESSION: Findings concerning for small bowel obstruction. Transition point identified within the left lower quadrant. No evidence for free intraperitoneal air to suggest viscus perforation. Small amount of pelvic free fluid. D/ / Arik Molina MD / Arik Molina MD Interpreting Provider: Arik Molina MD X-Ray 08/01/19 22:02 IMPRESSION: 1. A new gastric tube is in technically appropriate position, although it loops in the distal stomach. Consider retraction by up to 15 cm. 2. Persistent dilated small bowel loops corresponding with findings of obstruction as seen on the earlier CT. D/ / Bob Mcgowan MD / Bob Mcgowan MD Interpreting Provider: Bob Mcgowan MD X-Ray 08/02/19 08:17 IMPRESSION: 1. Enteric catheter with side port below the GE junction and tip projecting over the gastric pyloric region. 2. Decrease in gaseous distention of small bowel loops in the upper abdomen. D/ / Aneudy Maher MD / Aneudy Maher MD Interpreting Provider: Aneudy Maher MD X-Ray 08/02/19 10:08 IMPRESSION: NG tube in place with tip and side-port in the region of the gastric fundus D/ / Bob Stern MD / Bob Stern MD Interpreting Provider: Bob Stern MD Consult Discharge Plan - Plan Referrals: Ruy Rollins MD [Primary Care Provider] - (4) CAD (coronary artery disease) Qualifiers: Coronary Disease-Associated Artery/Lesion type: rincon artery [place] vs. transplanted heart: rincon heart Associated angina: without angina Qualified Code(s): I25.10 - Atherosclerotic heart disease of rincon coronary artery without angina pectoris (5) COPD (chronic obstructive pulmonary disease) Qualifiers: COPD type: chronic bronchitis Chronic bronchitis type: unspecified Qualified Code(s): J42 - Unspecified chronic bronchitis (7) Diabetes mellitus Qualifiers: Diabetes mellitus type: type 2 Diabetes mellitus mcc insulin use: without mcc use Diabetes mellitus complication status: without complication Qualified Code(s): E11.9 - Type 2 diabetes mellitus without complications (8) Hypertension Qualifiers: Hypertension type: essential hypertension Qualified Code(s): I10 - Essential (primary) hypertension (10) Atrial fibrillation Qualifiers: Atrial fibrillation type: paroxysmal Qualified Code(s): I48.0 - Paroxysmal atrial fibrillation
[2019-08-02] MEDS: 0.9 % Sodium Chloride 1,000 ML IVC SCH (13:46)
--- NOTE | 2019-08-02 15:25 | AcuteCareSurgery Progress Note ---
Date of Encounter: 08/02/19 Time of Encounter: 15:22 - Assessment and Plan (1) Small bowel obstruction Current Visit: Yes Status: Acute 64m admitted with sbo; ng tube in place; still with flatus, but less than before; no bowel movement; NPO, bowel rest SBFT on 08/03 replace electrolytes limit narcotics keep NG to LIWS serial exams; Subjective Patient reports: no new complaints, feels better, afebrile Objective Vital Signs - Last 8 Hours Temp Pulse Resp BP Pulse Ox 08/02/19 12:13 98.4 F 128 17 120/72 92 08/02/19 10:48 16 96 08/02/19 08:32 98.5 F 109 17 134/96 95 Intake and Output 08/01/19 08/02/19 08/02/19 23:59 07:59 15:59 Intake Total 500 / 500 0 / 0 Output Total 500 / 500 100 / 500 400 / 500 Balance 0 / 0 -100 / -500 -400 / -500 Intake: IV Fluids 500 / 500 0.9 % Sodium Chloride 500 ML @ 500 / 500 999 mls/hr IVC .Q31M [facility] Rx#: [id number] Oral 0 / 0 0 / 0 Output: Catheter 350 / 350 0 / 350 350 / 350 Gastric Drainage 150 / 150 100 / 150 50 / 150 Other: Stool Characteristics Normal for Patient Weight 110.8 kg Blood Glucose* 121 Patient Weight 08/02/19 23:59 Weight 110.8 kg - General physical appearance no distress - Respiratory normal expansion, normal respiratory effort - Cardiovascular Cardiovascular exam: Present: RRR - Abdomen Abdomen: Present: soft, distended, tender (mildly tender) - Neurologic CN 2-12 grossly intact - Musculoskeletal normal posture - Psychiatric oriented to time, oriented to person, oriented to place - Labs 08/02/19 02:43 08/02/19 02:43 Diabetes panel 08/01/19 08/02/19 Range/Units 17:12 02:43 Sodium 138 144 (136-145) mEq/L Potassium 4.3 4.2 (3.5-5.1) mEq/L Chloride 97 L 100 (98-107) mEq/L Carbon Dioxide 30 H 32 H (23-29) mEq/L BUN 26 H 26 H (8-23) mg/dL Creatinine 1.74 H 1.58 H (0.70-1.30) mg/dL Glucose 139 H 122 H (70-105) mg/dL Calcium 9.3 8.8 (8.6-10.3) mg/dL AST 27 (13-39) Units/L ALT 14 (7-52) Units/L Alkaline Phosphatase 91 (34-104) Units/L Albumin 4.1 (3.5-5.7) g/dL Calcium panel 08/01/19 08/02/19 Range/Units 17:12 02:43 Calcium 9.3 8.8 (8.6-10.3) mg/dL Phosphorus 4.0 (2.7-4.5) mg/dL Albumin 4.1 (3.5-5.7) g/dL Pituitary panel 08/01/19 08/02/19 Range/Units 17:12 02:43 Sodium 138 144 (136-145) mEq/L Potassium 4.3 4.2 (3.5-5.1) mEq/L Chloride 97 L 100 (98-107) mEq/L Carbon Dioxide 30 H 32 H (23-29) mEq/L BUN 26 H 26 H (8-23) mg/dL Creatinine 1.74 H 1.58 H (0.70-1.30) mg/dL Glucose 139 H 122 H (70-105) mg/dL Calcium 9.3 8.8 (8.6-10.3) mg/dL Adrenal panel 08/01/19 08/02/19 Range/Units 17:12 02:43 Sodium 138 144 (136-145) mEq/L Potassium 4.3 4.2 (3.5-5.1) mEq/L Chloride 97 L 100 (98-107) mEq/L Carbon Dioxide 30 H 32 H (23-29) mEq/L BUN 26 H 26 H (8-23) mg/dL Creatinine 1.74 H 1.58 H (0.70-1.30) mg/dL Glucose 139 H 122 H (70-105) mg/dL Calcium 9.3 8.8 (8.6-10.3) mg/dL Total Bilirubin 1.0 (0.3-1.0) mg/dL AST 27 (13-39) Units/L ALT 14 (7-52) Units/L Alkaline Phosphatase 91 (34-104) Units/L Albumin 4.1 (3.5-5.7) g/dL Consult Discharge Plan - Plan Referrals: Ruy Rollnis MD [Primary Care Provider] -
[2019-08-02] MEDS: Furosemide 20 MG/2 ML VIAL IVP SCH (18:18)
[2019-08-03] MEDS: Insulin LISPRO 300 UNITS/3 ML VIAL SQ SCH ×4 (00:08→17:22)
[2019-08-03] MEDS: Albuterol 2.5 MG/3 ML NEBULIZER IH SCH ×3 (01:44→16:04)
[2019-08-03] MEDS: *HR* Heparin 5,000 UNIT/ML VIAL SQ SCH ×3 (05:11→21:06)
[2019-08-03 05:53] LABS: Basophils % 0.4 %; Eosinophils # 0.1 K/mcL (0.0-0.6); Eosinophils % 1.9 %; Hematocrit 51.8 % (37.5-50.1); Hemoglobin 16.3 g/dL (12.9-16.9); Immature Granulocytes % 0.3 % (0-4); Lymphocytes # 1.2 K/mcL (0.6-4.6); Lymphocytes % 17.5 %; Mean Corpuscular HGB Conc 31.5 g/dL (31.6-35.5); Mean Corpuscular Hemoglobin 27.7 pg (28.0-33.3); Mean Corpuscular Volume 88.1 fL (83.0-100.0); Monocytes # 0.4 K/mcL (0.0-1.3); Monocytes % 6.2 %; Platelet Count 129 K/mcL (140-400); Red Blood Count 5.88 M/mcL (4.19-5.50); Red Cell Distribution Width 15.8 % (11.5-14.5); Segmented Neutrophils % 73.7 %; White Blood Count 6.8 K/mcL (4.3-11.1)
[2019-08-03 06:13] LABS: BUN/Creatinine Ratio 18 (6-26); Blood Urea Nitrogen 24 mg/dL (8-23); Calcium 8.3 mg/dL (8.6-10.3); Carbon Dioxide 29 mEq/L (23-29); Chloride 104 mEq/L (98-107); Glucose 101 mg/dL (70-105); Osmolality,Calculated 302 (280-300); Potassium 3.7 mEq/L (3.5-5.1); Sodium 144 mEq/L (136-145); eGFR For African Americans > 60 (> 60); eGFR For Non-African Americans 56 (> 60)
[2019-08-03] MEDS: 0.9 % Sodium Chloride 1,000 ML IVC SCH (06:49)
[2019-08-03] MEDS: Furosemide 20 MG/2 ML VIAL IVP SCH ×2 (07:23→17:22)
--- NOTE | 2019-08-03 10:08 | AcuteCareSurgery Progress Note ---
<Jolynn Pickett - Last Filed: 08/03/19 10:38> Date of Encounter: 08/03/19 Time of Encounter: 07:30 - Assessment and Plan (1) Small bowel obstruction Current Visit: Yes Status: Resolved SBFT unremarkable. Transit to colon in 30 minutes. DC NG; start CLD, ADAT. Subjective Patient reports: no new complaints, feels better, voiding w/o difficulty, flatus, bowel movement, afebrile Objective Vital Signs - Last 8 Hours Temp Pulse Resp BP Pulse Ox 08/03/19 06:21 98.5 F 88 15 121/85 95 08/03/19 03:18 98.4 F 96 19 118/76 96 Intake and Output 08/02/19 08/03/19 08/03/19 23:59 07:59 15:59 Intake Total 1000 / 1000 Output Total 1400 / 2250 525 / 525 Balance -1400 / -2250 475 / 475 Intake: IV Fluids 1000 / 1000 0.9 % Sodium Chloride 1,000 ML 1000 / 1000 @ 60 mls/hr IVC .[id number] [facility] Rx #:[id number] Output: Gastric Tube Lavage Amount 100 / 100 0 / 0 Left Nare 100 / 100 0 / 0 Straight Cath 700 / 700 Catheter 500 / 1200 375 / 375 Gastric Drainage 100 / 250 150 / 150 Other: Weight 109.2 kg Blood Glucose* 102 102 Patient Weight 08/03/19 23:59 Weight 109.2 kg - General physical appearance no distress - ENT normal nares (NG secured), atraumatic, normocephalic, Other (trach collar noted) - Abdomen Abdomen: Present: bowel sounds present, soft, non tender - Labs 08/03/19 04:21 08/03/19 04:21 Diabetes panel 08/03/19 Range/Units 04:21 Sodium 144 (136-145) mEq/L Potassium 3.7 (3.5-5.1) mEq/L Chloride 104 (98-107) mEq/L Carbon Dioxide 29 (23-29) mEq/L BUN 24 H (8-23) mg/dL Creatinine 1.30 (0.70-1.30) mg/dL Glucose 101 (70-105) mg/dL Calcium 8.3 L (8.6-10.3) mg/dL Calcium panel 08/03/19 Range/Units 04:21 Calcium 8.3 L (8.6-10.3) mg/dL Pituitary panel 08/03/19 Range/Units 04:21 Sodium 144 (136-145) mEq/L Potassium 3.7 (3.5-5.1) mEq/L Chloride 104 (98-107) mEq/L Carbon Dioxide 29 (23-29) mEq/L BUN 24 H (8-23) mg/dL Creatinine 1.30 (0.70-1.30) mg/dL Glucose 101 (70-105) mg/dL Calcium 8.3 L (8.6-10.3) mg/dL Adrenal panel 08/03/19 Range/Units 04:21 Sodium 144 (136-145) mEq/L Potassium 3.7 (3.5-5.1) mEq/L Chloride 104 (98-107) mEq/L Carbon Dioxide 29 (23-29) mEq/L BUN 24 H (8-23) mg/dL Creatinine 1.30 (0.70-1.30) mg/dL Glucose 101 (70-105) mg/dL Calcium 8.3 L (8.6-10.3) mg/dL Consult Discharge Plan - Plan Referrals: Ruy Rollins MD [Primary Care Provider] - <Catherine Jacob F - Last Filed: 08/03/19 13:56> Date of Encounter: 08/03/19 Objective Vital Signs - Last 8 Hours Temp Pulse Resp BP Pulse Ox 08/03/19 11:42 98.8 F 113 16 114/89 97 08/03/19 10:45 24 99 08/03/19 06:21 98.5 F 88 15 121/85 95 Intake and Output 08/02/19 08/03/19 08/03/19 23:59 07:59 15:59 Intake Total 1000 / 1115 115 / 1115 Output Total 1400 / 2250 525 / 1125 600 / 1125 Balance -1400 / -2250 475 / -10 -485 / -10 Intake: IV Fluids 1000 / 1115 115 / 1115 0.9 % Sodium Chloride 1,000 ML 1000 / 1115 115 / 1115 @ 60 mls/hr IVC .[id number] [facility] Rx #:[id number] Output: Gastric Tube Lavage Amount 100 / 100 0 / 0 Left Nare 100 / 100 0 / 0 Straight Cath 700 / 700 Catheter 500 / 1200 375 / 875 500 / 875 Gastric Drainage 100 / 250 150 / 250 100 / 250 Other: Stool Size Large Stool Consistency liquid Stool Characteristics Normal for Patient Stool Color Brown # Bowel Movements 1 Weight 109.2 kg Blood Glucose* 102 102 119 Patient Weight 08/03/19 23:59 Weight 109.2 kg - Labs 08/03/19 04:21 08/03/19 04:21 Diabetes panel 08/03/19 Range/Units 04:21 Sodium 144 (136-145) mEq/L Potassium 3.7 (3.5-5.1) mEq/L Chloride 104 (98-107) mEq/L Carbon Dioxide 29 (23-29) mEq/L BUN 24 H (8-23) mg/dL Creatinine 1.30 (0.70-1.30) mg/dL Glucose 101 (70-105) mg/dL Calcium 8.3 L (8.6-10.3) mg/dL Calcium panel 08/03/19 Range/Units 04:21 Calcium 8.3 L (8.6-10.3) mg/dL Pituitary panel 08/03/19 Range/Units 04:21 Sodium 144 (136-145) mEq/L Potassium 3.7 (3.5-5.1) mEq/L Chloride 104 (98-107) mEq/L Carbon Dioxide 29 (23-29) mEq/L BUN 24 H (8-23) mg/dL Creatinine 1.30 (0.70-1.30) mg/dL Glucose 101 (70-105) mg/dL Calcium 8.3 L (8.6-10.3) mg/dL Adrenal panel 08/03/19 Range/Units 04:21 Sodium 144 (136-145) mEq/L Potassium 3.7 (3.5-5.1) mEq/L Chloride 104 (98-107) mEq/L Carbon Dioxide 29 (23-29) mEq/L BUN 24 H (8-23) mg/dL Creatinine 1.30 (0.70-1.30) mg/dL Glucose 101 (70-105) mg/dL Calcium 8.3 L (8.6-10.3) mg/dL - Attending Attestation I examined this patient and my medical decision-making was reviewed with the WELDING INSTRUCTOR. I agree with the documented findings, disposition and treatment plan as described to the extent set forth below. Pt was admitted with partial SBO. He has responded well to nonsurgical management. SBFT neg for SBO. NGT removed and clear liquid diet started. Advance to regular as tolerated.
[2019-08-03] MEDS: Budesonide/Formoterol 160/4.5 1 PUFF INH IH SCH (10:46)
[2019-08-03] MEDS: *HR* Metoprolol 5 MG/5 ML VIAL IVP PRN (10:58)
[2019-08-03] MEDS: Tiotropium 18 MCG inhalation IH SCH (11:06)
--- NOTE | 2019-08-03 11:36 | Internal Med Progress Note ---
Hospitalist Progress Note - Encounter Date of Encounter: 08/03/19 Time of Encounter: 11:33 - Subjective Interval History: Patient was seen and examined at bedside today. Patient reports that he is doing well. His his abdominal pain is well controlled. Denies any fever and chills overnight. He reports he had 3 bowel movements yesterday. - Exam Vitals: Temp Pulse Resp BP Pulse Ox 98.5 F 88 24 121/85 99 08/03/19 06:21 08/03/19 06:21 08/03/19 10:45 08/03/19 06:21 08/03/19 10:45 Exam: General: Alert and oriented 3. Cardiovascular:Normal S1 & S2, no rubs, murmurs or gallops. No JVD. Pulse regular. Lungs: Trach collar in place. Normal breath sounds, no wheezes or crackles. Abdomen:Soft, Mild tenderness Extremities:No deformity, no edema or tenderness, no joint swelling or clubbing. Neurological:Normal cognition and motor skills. Pulses:Carotid and radial pulses normal +2. - Assessment and Plan (1) Small bowel obstruction Current Visit: Yes Status: Resolved Assessment and Plan: She was presented to the hospital with complaint abdominal pain and vomiting. On initial assessment pt found to have SBO. Patient was placed on NG tube. 3 bowel movement yesterday. SBFT done today showed a diminutive transit time to colon. NG tube was discontinued by surgery. Placed on the clear liquid diet. We will advance diet as tolerated. (2) LIA (acute kidney injury) Current Visit: No Status: Resolved Assessment and Plan: Resolved creatinine today is 1.3. (3) Urinary retention Current Visit: Yes Status: Acute Assessment and Plan: Patient reporting any difficulty with voiding on admission. Currently patient is on Flomax for his BPH. At admission patient has a Reynaga placed. We will discontinue Reynaga today and attempt the void trial. We will consider urology consult if patient fails void trial. 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 (10) Atrial fibrillation Current Visit: No Status: Chronic (11) DVT prophylaxis Current Visit: Yes Status: Acute Assessment and Plan: SC Heparin - Time Spent with Patient Total time spent is greater than 50% in coordination of care (as documented) at patient's floor/unit and/or counseling patient: 25 - 35 minutes Plan of Care Discussed with: patient Internal Medicine: Result - Labs CBC & Chem 7: 08/03/19 04:21 08/03/19 04:21 Labs: Short CBC 08/03/19 Range/Units 04:21 WBC 6.8 (4.3-11.1) K/mcL Hgb 16.3 (12.9-16.9) g/dL Hct 51.8 H (37.5-50.1) % Plt Count 129 L (140-400) K/mcL Neutrophils # 5.0 (1.6-8.9) K/mcL BMP 08/03/19 04:21 Sodium 144 Potassium 3.7 Chloride 104 Carbon Dioxide 29 BUN 24 H Creatinine 1.30 Glucose 101 Calcium 8.3 L - ABG Interpretation ABG results: PT/INR, D-dimer PT 17.7 Seconds (9.4-12.1) H 08/02/19 02:43 - Impressions Impressions Small Bowel X-Ray 08/03/19 10:24 IMPRESSION: Contrast extends from the stomach to the colon in 30 minutes. Mildly dilated loop of small bowel in the mid abdomen measuring up to 3.6 cm. This most likely represents an ileus or improving small bowel obstruction. D/ / Barney Meza / Barney Meza Interpreting Provider: Barney Meza Consult Discharge Plan - Plan Referrals: Ruy Rollins MD [Primary Care Provider] - (4) CAD (coronary artery disease) Qualifiers: Coronary Disease-Associated Artery/Lesion type: [place] artery [place] vs. transplanted heart: [place] heart Associated angina: without angina Qualified Code(s): I25.10 - Atherosclerotic heart disease of [place] coronary artery without angina pectoris (5) COPD (chronic obstructive pulmonary disease) Qualifiers: COPD type: chronic bronchitis Chronic bronchitis type: unspecified Qualified Code(s): J42 - Unspecified chronic bronchitis (7) Diabetes mellitus Qualifiers: Diabetes mellitus type: type 2 Diabetes mellitus network systems operator insulin use: without network systems operator use Diabetes mellitus complication status: without complication Qualified Code(s): E11.9 - Type 2 diabetes mellitus without complications (8) Hypertension Qualifiers: Hypertension type: essential hypertension Qualified Code(s): I10 - Essential (primary) hypertension (10) Atrial fibrillation Qualifiers: Atrial fibrillation type: paroxysmal Qualified Code(s): I48.0 - Paroxysmal atrial fibrillation
--- NOTE | 2019-08-03 13:00 | Electrocardiograph Report ---
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
--- NOTE | 2019-08-03 13:04 | Electrocardiograph Report ---
[address] [place], [place] [address] Test Date: 2019-08-01 Pat Name: Vin Vogel Department: 115 Room: 3A13 Gender: M Drafter Electronic: : 1955 Requested By: Joss Alvarenga Order Number: [id number] Reading MD: Abhishek Tejeda Measurements Intervals [place] Rate: 116 P: ID: 0 QRS: 30 QRSD: 146 T: -11 QT: 365 QTc: 434 Interpretive Statements ATRIAL FIBRILLATION WITH RAPID VENTRICULAR RESPONSE RIGHT BUNDLE BRANCH BLOCK Electronically Signed On 08-03-2019 13:03:04 EDT by Abhishek Tejeda
[2019-08-03] MEDS: *HR* Metoprolol 5 MG/5 ML VIAL IVP SCH (17:23)
[2019-08-03] MEDS ORDERED: Insulin LISPRO 300 UNITS/3 ML VIAL SQ SCH (21:00)
[2019-08-04] MEDS: Budesonide/Formoterol 160/4.5 1 PUFF INH IH SCH ×2 (00:04→10:40)
[2019-08-04] MEDS: Albuterol 2.5 MG/3 ML NEBULIZER IH SCH ×2 (00:04→10:40)
[2019-08-04 00:36] LABS: Bilirubin,Urine Negative (Negative); Blood,Urine Large (Negative); Clarity,Urine Cloudy (Clear); Color,Urine Yellow (Yellow); Glucose,Urine (UA) Normal (Normal); Ketones,Urine Negative (Negative); Leukocyte Esterase,Urine Moderate (Negative); Nitrite,Urine Negative (Negative); Protein,Urine 30 mg/dL (Neg-Trace); Specific Gravity,Urine 1.021 (1.010-1.025); Urobilinogen,Urine Normal (Normal)
[2019-08-04 00:38] LABS: Hyaline Casts,Urine None Seen per lpf (None-Few)
[2019-08-04 00:56] LABS: Bacteria,Urine Few per hpf (None-Few); RBC,Urine 0-3 per hpf (0-3)
[2019-08-04 00:57] LABS: Squamous Epithelial Cell,Urine Few per lpf (None-Few)
[2019-08-04] MEDS: *HR* Metoprolol 5 MG/5 ML VIAL IVP SCH ×2 (01:27→05:40)
[2019-08-04] MEDS: 0.9 % Sodium Chloride 1,000 ML IVC SCH (01:31)
[2019-08-04 04:22] LABS: Basophils % 0.4 %; Eosinophils # 0.3 K/mcL (0.0-0.6); Eosinophils % 3.3 %; Hematocrit 49.8 % (37.5-50.1); Hemoglobin 15.6 g/dL (12.9-16.9); Immature Granulocytes % 0.4 % (0-4); Lymphocytes # 1.6 K/mcL (0.6-4.6); Lymphocytes % 20.8 %; Mean Corpuscular HGB Conc 31.3 g/dL (31.6-35.5); Mean Corpuscular Hemoglobin 27.7 pg (28.0-33.3); Mean Corpuscular Volume 88.3 fL (83.0-100.0); Mean Platelet Volume 10.7 fL (9.4-12.4); Monocytes # 0.4 K/mcL (0.0-1.3); Monocytes % 5.8 %; Neutrophils # 5.2 K/mcL (1.6-8.9); Platelet Count 132 K/mcL (140-400); Red Blood Count 5.64 M/mcL (4.19-5.50); Red Cell Distribution Width 15.7 % (11.5-14.5); Segmented Neutrophils % 69.3 %; White Blood Count 7.5 K/mcL (4.3-11.1)
[2019-08-04 04:46] LABS: BUN/Creatinine Ratio 16 (6-26); Blood Urea Nitrogen 20 mg/dL (8-23); Calcium 8.1 mg/dL (8.6-10.3); Carbon Dioxide 25 mEq/L (23-29); Chloride 105 mEq/L (98-107); Glucose 97 mg/dL (70-105); Osmolality,Calculated 297 (280-300); Potassium 3.3 mEq/L (3.5-5.1); Sodium 142 mEq/L (136-145); eGFR For African Americans > 60 (> 60); eGFR For Non-African Americans 57 (> 60)
[2019-08-04] MEDS: *HR* Heparin 5,000 UNIT/ML VIAL SQ SCH (05:38)
[2019-08-04] MEDS: Furosemide 20 MG/2 ML VIAL IVP SCH (07:23)
[2019-08-04] MEDS ORDERED: Potassium Chloride Elixir 20 MEQ/15 ML UDC PO ONE (07:25)
[2019-08-04] MEDS ORDERED: Insulin LISPRO 300 UNITS/3 ML VIAL SQ SCH (07:30)
[2019-08-04 07:44] VITALS: BP 121/70
--- NOTE | 2019-08-04 08:03 | AcuteCareSurgery Progress Note ---
<Jolynn Pickett - Last Filed: 08/04/19 08:01> Date of Encounter: 08/04/19 Time of Encounter: 08:01 - Assessment and Plan (1) Small bowel obstruction Status: Resolved SBFT unremarkable. Transit to colon in 30 minutes. Tolerating full liquid diet. Will advance to ADA diet. No acute surgical intervention indicated. Surgery will sign off at this time. Thank you for allowing us to participate in Mr. Dominguez's care. Please call or reconsult of further questions or needs arise. Subjective Patient reports: no new complaints, feels better, tolerating liquids well, voiding w/o difficulty, flatus, bowel movement, afebrile Objective Vital Signs - Last 8 Hours Temp Pulse Resp BP Pulse Ox 08/04/19 07:40 97.6 F 101 16 121/70 95 08/04/19 04:29 98.2 F 74 17 132/78 95 08/04/19 00:51 98.1 F 78 15 111/78 96 08/04/19 00:04 20 94 Intake and Output 08/03/19 08/04/19 08/04/19 23:59 07:59 15:59 Intake Total 350 / 1465 785 / 785 Output Total 325 / 2150 200 / 200 Balance 25 / -685 585 / 585 Intake: IV Fluids 350 / 1465 785 / 785 0.9 % Sodium Chloride 1,000 ML 350 / 1465 785 / 785 @ 60 mls/hr IVC .[id number] [facility] Rx #:[id number] Oral 0 / 0 Output: Urine 325 / 325 200 / 200 Other: Stool Size Moderate Stool Consistency loose Stool Color Brown Yellow Green # Bowel Movement Diapers 1 Weight 111.2 kg Blood Glucose* 119 97 Patient Weight 08/04/19 23:59 Weight 111.2 kg - General physical appearance no distress, no pain - Abdomen Abdomen: Present: bowel sounds present, soft, non tender - Neurologic normal sensation - Musculoskeletal normal posture - Labs 08/04/19 03:39 08/04/19 03:39 Diabetes panel 08/04/19 Range/Units 03:39 Sodium 142 (136-145) mEq/L Potassium 3.3 L (3.5-5.1) mEq/L Chloride 105 (98-107) mEq/L Carbon Dioxide 25 (23-29) mEq/L BUN 20 (8-23) mg/dL Creatinine 1.28 (0.70-1.30) mg/dL Glucose 97 (70-105) mg/dL Calcium 8.1 L (8.6-10.3) mg/dL Calcium panel 08/04/19 Range/Units 03:39 Calcium 8.1 L (8.6-10.3) mg/dL Pituitary panel 08/04/19 Range/Units 03:39 Sodium 142 (136-145) mEq/L Potassium 3.3 L (3.5-5.1) mEq/L Chloride 105 (98-107) mEq/L Carbon Dioxide 25 (23-29) mEq/L BUN 20 (8-23) mg/dL Creatinine 1.28 (0.70-1.30) mg/dL Glucose 97 (70-105) mg/dL Calcium 8.1 L (8.6-10.3) mg/dL Adrenal panel 08/04/19 Range/Units 03:39 Sodium 142 (136-145) mEq/L Potassium 3.3 L (3.5-5.1) mEq/L Chloride 105 (98-107) mEq/L Carbon Dioxide 25 (23-29) mEq/L BUN 20 (8-23) mg/dL Creatinine 1.28 (0.70-1.30) mg/dL Glucose 97 (70-105) mg/dL Calcium 8.1 L (8.6-10.3) mg/dL Consult Discharge Plan - Plan Referrals: Ruy Rollins MD [Primary Care Provider] - (Web request entered. Office will call patient with date and time of appointment. Thank you) Prescriptions: Nitrofurantoin (BID) [Macrobid] 100 mg PO BID 7 Days #14 capsule Prescription Printed <Catherine Jacob - Last Filed: 08/04/19 23:56> Date of Encounter: 08/04/19 Objective Intake and Output 08/04/19 08/04/19 08/04/19 07:59 15:59 23:59 Intake Total 885 / 2220 1335 / 2220 Output Total 400 / 650 250 / 650 Balance 485 / 1570 1085 / 1570 Intake: IV Fluids 785 / 940 155 / 940 0.9 % Sodium Chloride 1,000 ML 785 / 940 155 / 940 @ 60 mls/hr IVC .[id number] [facility] Rx #:[id number] Oral 100 / 1280 1180 / 1280 Output: Urine 400 / 650 250 / 650 Other: Meal Breakfast Percent of Meal Consumed 100% Weight 111.2 kg Blood Glucose* 97 Patient Weight 08/04/19 23:59 Weight 111.2 kg - Labs 08/04/19 03:39 08/04/19 03:39 Diabetes panel 08/04/19 Range/Units 03:39 Sodium 142 (136-145) mEq/L Potassium 3.3 L (3.5-5.1) mEq/L Chloride 105 (98-107) mEq/L Carbon Dioxide 25 (23-29) mEq/L BUN 20 (8-23) mg/dL Creatinine 1.28 (0.70-1.30) mg/dL Glucose 97 (70-105) mg/dL Calcium 8.1 L (8.6-10.3) mg/dL Calcium panel 08/04/19 Range/Units 03:39 Calcium 8.1 L (8.6-10.3) mg/dL Pituitary panel 08/04/19 Range/Units 03:39 Sodium 142 (136-145) mEq/L Potassium 3.3 L (3.5-5.1) mEq/L Chloride 105 (98-107) mEq/L Carbon Dioxide 25 (23-29) mEq/L BUN 20 (8-23) mg/dL Creatinine 1.28 (0.70-1.30) mg/dL Glucose 97 (70-105) mg/dL Calcium 8.1 L (8.6-10.3) mg/dL Adrenal panel 08/04/19 Range/Units 03:39 Sodium 142 (136-145) mEq/L Potassium 3.3 L (3.5-5.1) mEq/L Chloride 105 (98-107) mEq/L Carbon Dioxide 25 (23-29) mEq/L BUN 20 (8-23) mg/dL Creatinine 1.28 (0.70-1.30) mg/dL Glucose 97 (70-105) mg/dL Calcium 8.1 L (8.6-10.3) mg/dL - Attending Attestation I examined this patient and my medical decision-making was reviewed with the AMMUNITION OFFICER. I agree with the documented findings, disposition and treatment plan as described to the extent set forth below. SBO resolved. Advance diet to regular as tolerated. Pt to f/u prn.
[2019-08-04] MEDS ORDERED: Apixaban 5 MG TABLET PO SCH (10:00)
[2019-08-04] MEDS ORDERED: *HR* Digoxin 0.125 MG TABLET PO SCH (10:00)
[2019-08-04] MEDS ORDERED: Metoprolol 100 MG TABLET PO SCH (10:00)
--- NOTE | 2019-08-04 10:07 | Discharge Summary ---
- NOTES TO OUTPATIENT PROVIDER Notes to Outpatient Provider: Patient was admitted to the hospital for small bowel obstruction. Surgery team was on consult. Patient was managed conservatively. Patient's bowel function returned and his diet was gradually advanced. Patient tolerated by mouth regular diet. Patient also complaining of f dysuria a day before discharge day. UA showed possible UTI. Urine culture pending. We will discharge patient on Macrobid for 1 week. Follow-up with primary care for urine culture final report. Resume all home medication. Orders not resulted at time of discharge: Pending orders 08/04/19 00:15 Culture,Urine [RM] Routine Date of Encounter: 08/04/19 Time of Encounter: 10:06 - Discharge Diagnosis (1) Small bowel obstruction Priority: Primary Status: Resolved (2) Urinary retention Priority: Secondary Status: Acute (3) CAD (coronary artery disease) Priority: Secondary Status: Chronic Qualifiers: Coronary Disease-Associated Artery/Lesion type: [place] artery [place] vs. transplanted heart: [place] heart Associated angina: without angina Qualified Code(s): I25.10 - Atherosclerotic heart disease of [place] coronary artery without angina pectoris (4) COPD (chronic obstructive pulmonary disease) Priority: Secondary Status: Chronic Qualifiers: COPD type: chronic bronchitis Chronic bronchitis type: unspecified Qualified Code(s): J42 - Unspecified chronic bronchitis (5) Castleman disease Priority: Secondary Status: Chronic (6) Diabetes mellitus Priority: Secondary Status: Chronic Qualifiers: Diabetes mellitus type: type 2 Diabetes mellitus fci insulin use: without computer terminal operator use Diabetes mellitus complication status: without complication Qualified Code(s): E11.9 - Type 2 diabetes mellitus without complications (7) Hypertension Priority: Secondary Status: Chronic Qualifiers: Hypertension type: essential hypertension Qualified Code(s): I10 - Essential (primary) hypertension (8) POEMS syndrome Priority: Secondary Status: Chronic (9) Atrial fibrillation Priority: Secondary Status: Chronic Qualifiers: Atrial fibrillation type: paroxysmal Qualified Code(s): I48.0 - Paroxysmal atrial fibrillation (10) DVT prophylaxis Priority: Secondary Status: Acute Hospital course: Mr. Vogel is a 64 year old male was admitted to the hospital for small bowel obstruction. Surgery team was on consult. Patient was managed conservatively. Patient's bowel function returned and his diet was gradually advanced. Patient tolerated by mouth regular diet. Patient also complaining off dysuria a day before discharge day. UA showed possible UTI. Urine culture pending. We will discharge patient on Macrobid for 1 week. Follow-up with primary care for urine culture final report. Resume all home medication. Discharge discussed with: patient, family, nurse, social work, case management, car sales consultant - Time Spent with Patient Total time spent providing and/or coordinating discharge services: 35 Time spent: Greater than 30 minutes - Discharge Medications Prescriptions: New Nitrofurantoin (BID) [Macrobid] 100 mg PO BID 7 Days #14 capsule Continued Atorvastatin [Lipitor] 40 mg PO HS Budesonide/Formoterol 160/4.5 [Symbicort 160/4.5] 2 puff IH BIDR Ergocalciferol (VITAMIN D2) [Vitamin D2] 50,000 unit PO QWEEK Pioglitazone HCl [Actos] 15 mg PO DAILY Nitroglycerin [Nitrostat] 0.4 mg SL PRN PRN #30 tab.subl PRN Reason: Chest Pain Albuterol Neb [Proventil Neb] 2.5 mg IH TID PRN PRN Reason: Shortness Of Breath Loratadine [Claritin] 10 mg PO DAILY Clarithromycin [Biaxin] 500 mg PO BID Allopurinol [Zyloprim 300 MG] 300 mg PO DAILY Bumetanide 2 mg PO QPM Bumetanide 4 mg PO QAM Doxycycline Monohydrate [Mondoxyne Nl] 100 mg PO DAILY hydrOXYzine HCl [Hydroxyzine HCl] 12.5 - 50 mg PO Q8H PRN PRN Reason: Itching Potassium Chloride [K-Tab ER] 20 meq PO BID Gabapentin [Neurontin] 800 mg PO TID Tamsulosin [Flomax] 0.4 mg PO DAILY Metoprolol [Lopressor] 100 mg PO BID Apixaban [Eliquis] 5 mg PO BID Tiotropium [Spiriva] 2 puff IH DAILY Levothyroxine [Synthroid] 88 mcg PO QAM Digoxin [Lanoxin] 0.125 mg PO DAILY Aspirin [Lo-Dose Aspirin EC] 81 mg PO DAILY Guaifenesin [Mucinex] 600 mg PO Q12H PRN PRN Reason: Cough Fluticasone Propionate Nasal [Flonase] 100 mcg NS BID PRN PRN Reason: Congestion Home Medications: Apixaban [Eliquis] 5 mg PO BID 07/08/17 [History] Aspirin [Lo-Dose Aspirin EC] 81 mg PO DAILY 07/08/17 [History] Digoxin [Lanoxin] 0.125 mg PO DAILY 07/08/17 [History] Fluticasone Propionate Nasal [Flonase] 100 mcg NS BID PRN 07/08/17 [History] Gabapentin [Neurontin] 800 mg PO TID 07/08/17 [History] Guaifenesin [Mucinex] 600 mg PO Q12H PRN 07/08/17 [History] Levothyroxine [Synthroid] 88 mcg PO QAM 07/08/17 [History] Metoprolol [Lopressor] 100 mg PO BID 07/08/17 [History] Potassium Chloride [K-Tab ER] 20 meq PO BID 07/08/17 [History] Tamsulosin [Flomax] 0.4 mg PO DAILY 07/08/17 [History] Tiotropium [Spiriva] 2 puff IH DAILY 07/08/17 [History] Atorvastatin [Lipitor] 40 mg PO HS 08/06/17 [History] Budesonide/Formoterol 160/4.5 [Symbicort 160/4.5] 2 puff IH BIDR 08/06/17 [History] Ergocalciferol (VITAMIN D2) [Vitamin D2] 50,000 unit PO QWEEK 08/06/17 [History] Nitroglycerin [Nitrostat] 0.4 mg SL PRN PRN #30 tab.subl 07/24/18 [Rx] Pioglitazone HCl [Actos] 15 mg PO DAILY 07/24/18 [History] Albuterol Neb [Proventil Neb] 2.5 mg IH TID PRN 08/01/19 [History] Clarithromycin [Biaxin] 500 mg PO BID 08/01/19 [History] Loratadine [Claritin] 10 mg PO DAILY 08/01/19 [History] Allopurinol [Zyloprim 300 MG] 300 mg PO DAILY 08/02/19 [History] Bumetanide 2 mg PO QPM 08/02/19 [History] Bumetanide 4 mg PO QAM 08/02/19 [History] Doxycycline Monohydrate [Mondoxyne Nl] 100 mg PO DAILY 08/02/19 [History] hydrOXYzine HCl [Hydroxyzine HCl] 12.5 - 50 mg PO Q8H PRN 08/02/19 [History] Nitrofurantoin (BID) [Macrobid] 100 mg PO BID 7 Days #14 capsule 08/04/19 [Rx] Allergies/Adverse Reactions: Allergy/AdvReac Type Severity Reaction Status Date / Time vancomycin Allergy Intermediate See Verified 08/02/19 16:09 Comments cefazolin Allergy Mild Rash Verified 08/02/19 16:09 cephalexin [From Keflex] Allergy Mild Rash Verified 08/02/19 16:09 levofloxacin [From Levaquin] Allergy Mild Blister Verified 08/02/19 16:09 pramipexole [From Mirapex] Allergy Mild Rash Verified 08/02/19 16:09 Sulfa (Sulfonamide Allergy Mild Rash Verified 08/02/19 16:09 Antibiotics) ciprofloxacin [From Cipro] Allergy Rash Verified 08/02/19 16:09 clindamycin Allergy Rash Verified 08/02/19 16:09 oxycodone [Oxycodone] AdvReac Severe Unresponsiv Verified 08/02/19 16:09 e Date of admission: 08/02/19 12:31 Primary care physician: Ruy Rollins MD Consults: 08/01/19 18:49 Consult to Surgery [CONS] Stat Consulting Provider: Acute Care Surgery Reason for Consult: sbo Call Completed: Yes 08/01/19 20:11 Consult to Nutrition [CONS] Routine Comment: Consulting Provider: NUTRITION Reason for Dietary Consult: Other Other:: poor nutriton Consult to Pastoral Services [CONS] Routine Comment: Discharging clinician: Andres Osborne Bowman - Constitutional Vitals: Temp Pulse Resp BP Pulse Ox 97.6 F 101 16 121/70 95 08/04/19 07:40 08/04/19 07:40 08/04/19 07:40 08/04/19 07:40 08/04/19 07:40 General appearance: Present: cooperative, A&O X 3 Exam: General: Alert and oriented 3. Cardiovascular:Normal S1 & S2, no rubs, murmurs or gallops. No JVD. Pulse regular. Lungs: Trach collar in place. Normal breath sounds, no wheezes or crackles. Abdomen:Soft, Mild tenderness Extremities:No deformity, no edema or tenderness, no joint swelling or clubbing. Neurological:Normal cognition and motor skills. Pulses:Carotid and radial pulses normal +2. - Patient Status Disposition: Home Health Service Condition: Good Overall status at discharge: patient is progressing back to baseline - Discharge Instructions Follow Up With: Ruy Rollins MD [Primary Care Provider] - - Diet and Activity Activity: increase activity as tolerated Diet: low salt diet
--- NOTE | 2019-08-04 10:14 | Physician Discharge Referral ---
Home Health/Hosp Referral Info Transfer to: Home Health Provider in Charge Post Discharge: PCP - Diagnosis (1) Small bowel obstruction Priority: Primary Status: Resolved (2) Urinary retention Priority: Secondary Status: Acute (3) CAD (coronary artery disease) Priority: Secondary Status: Chronic (4) COPD (chronic obstructive pulmonary disease) Priority: Secondary Status: Chronic (5) Castleman disease Priority: Secondary Status: Chronic (6) Diabetes mellitus Priority: Secondary Status: Chronic (7) Hypertension Priority: Secondary Status: Chronic (8) POEMS syndrome Priority: Secondary Status: Chronic (9) Atrial fibrillation Priority: Secondary Status: Chronic (10) DVT prophylaxis Priority: Secondary Status: Acute - Respiratory Orders Oxygen / L per min (2 l / min through trach) Smoking Cessation: Smoking cessation has been advised. For more information, call the [employer] Quit Line at 4-813-ZDMP-NOW. - Diet/Nutrition Diet/Nutrition Orders: Cardiac - Activity Activity Orders: Ambulate - Services Needed Following services are medically necessary services: Nursing, Home Health Aide, Physical Therapy, Occupational Therapy - Transfer Medications Prescriptions: Nitrofurantoin (BID) [Macrobid] 100 mg PO BID 7 Days #14 capsule Prescription Printed Home Medications: Apixaban [Eliquis] 5 mg PO BID 07/08/17 [History] Aspirin [Lo-Dose Aspirin EC] 81 mg PO DAILY 07/08/17 [History] Digoxin [Lanoxin] 0.125 mg PO DAILY 07/08/17 [History] Fluticasone Propionate Nasal [Flonase] 100 mcg NS BID PRN 07/08/17 [History] Gabapentin [Neurontin] 800 mg PO TID 07/08/17 [History] Guaifenesin [Mucinex] 600 mg PO Q12H PRN 07/08/17 [History] Levothyroxine [Synthroid] 88 mcg PO QAM 07/08/17 [History] Metoprolol [Lopressor] 100 mg PO BID 07/08/17 [History] Potassium Chloride [K-Tab ER] 20 meq PO BID 07/08/17 [History] Tamsulosin [Flomax] 0.4 mg PO DAILY 07/08/17 [History] Tiotropium [Spiriva] 2 puff IH DAILY 07/08/17 [History] Atorvastatin [Lipitor] 40 mg PO HS 08/06/17 [History] Budesonide/Formoterol 160/4.5 [Symbicort 160/4.5] 2 puff IH BIDR 08/06/17 [History] Ergocalciferol (VITAMIN D2) [Vitamin D2] 50,000 unit PO QWEEK 08/06/17 [History] Nitroglycerin [Nitrostat] 0.4 mg SL PRN PRN #30 tab.subl 07/24/18 [Rx] Pioglitazone HCl [Actos] 15 mg PO DAILY 07/24/18 [History] Albuterol Neb [Proventil Neb] 2.5 mg IH TID PRN 08/01/19 [History] Clarithromycin [Biaxin] 500 mg PO BID 08/01/19 [History] Loratadine [Claritin] 10 mg PO DAILY 08/01/19 [History] Allopurinol [Zyloprim 300 MG] 300 mg PO DAILY 08/02/19 [History] Bumetanide 2 mg PO QPM 08/02/19 [History] Bumetanide 4 mg PO QAM 08/02/19 [History] Doxycycline Monohydrate [Mondoxyne Nl] 100 mg PO DAILY 08/02/19 [History] hydrOXYzine HCl [Hydroxyzine HCl] 12.5 - 50 mg PO Q8H PRN 08/02/19 [History] Nitrofurantoin (BID) [Macrobid] 100 mg PO BID 7 Days #14 capsule 08/04/19 [Rx] Allergies/Adverse Reactions: Allergy/AdvReac Type Severity Reaction Status Date / Time vancomycin Allergy Intermediate See Verified 08/02/19 16:09 Comments cefazolin Allergy Mild Rash Verified 08/02/19 16:09 cephalexin [From Keflex] Allergy Mild Rash Verified 08/02/19 16:09 levofloxacin [From Levaquin] Allergy Mild Blister Verified 08/02/19 16:09 pramipexole [From Mirapex] Allergy Mild Rash Verified 08/02/19 16:09 Sulfa (Sulfonamide Allergy Mild Rash Verified 08/02/19 16:09 Antibiotics) ciprofloxacin [From Cipro] Allergy Rash Verified 08/02/19 16:09 clindamycin Allergy Rash Verified 08/02/19 16:09 oxycodone [Oxycodone] AdvReac Severe Unresponsiv Verified 08/02/19 16:09 e Certification: Further, I certify that my clinical findings support that this patient is homebound (i.e. absences from home require considerable and taxing effort and are for medical reasons or uatsdin services or infrequently or short duration when for other reasons) because: Homebound Reason: Patient requires assistance of a person or device to safely leave home Attestation: My signature below is to certify that this patient is under my care and that I, or nurse practitioner, or a physician's senior assistant manager working with me, has a [id number] encounter with this patient.
[2019-08-04] MEDS: Tiotropium 18 MCG inhalation IH SCH (10:41)
== END 2019-08-04 10:55 | disposition home health service (06) | DRG 389 ==
LOC: EMEROOARM 15:40 → 3ANU 15:40 → SUATTDRO 18:59 → 3ANU 19:45
PROVIDERS: ADMIT Internal Medicine; ATTEND Family Medicine

== ENCOUNTER 2019-10-17 14:29 | Observation (INO) ==
[2019-10-17] MEDS ORDERED: 0.9 % Sodium Chloride 1,000 ML IVC ONE (14:51)
[2019-10-17] MEDS ORDERED: Ondansetron 4 MG/2 ML VIAL IVP ONE (14:51)
[2019-10-17] MEDS ORDERED: Isovue-370 500 ML BOTTLE IVP ONE (14:53)
[2019-10-17] MEDS ORDERED: *HR* FentaNYL (PF) 100 MCG/2 ML VIAL IVP ONE (14:54)
[2019-10-17 15:24] LABS: Bilirubin,Urine Negative (Negative); Blood,Urine Trace (Negative); Clarity,Urine Clear (Clear); Color,Urine Yellow (Yellow); Glucose,Urine (UA) Normal (Normal); Ketones,Urine Negative (Negative); Leukocyte Esterase,Urine Moderate (Negative); Nitrite,Urine Negative (Negative); PH,Urine 5.5 pH Units (5.0-8.0); Protein,Urine 30 mg/dL (Neg-Trace); Specific Gravity,Urine 1.017 (1.010-1.025); Urobilinogen,Urine Normal (Normal)
[2019-10-17 15:27] LABS: Bacteria,Urine None Seen per hpf (None-Few); Hyaline Casts,Urine Few per lpf (None-Few); Squamous Epithelial Cell,Urine Many per lpf (None-Few)
[2019-10-17 15:55] LABS: Basophils # 0.1 K/mcL (0.0-0.2); Basophils % 0.5 %; Eosinophils # 0.1 K/mcL (0.0-0.6); Eosinophils % 1.4 %; Hematocrit 53.7 % (37.5-50.1); Hemoglobin 17.7 g/dL (12.9-16.9); Immature Granulocytes % 0.3 % (0-4); Lymphocytes # 1.7 K/mcL (0.6-4.6); Lymphocytes % 18.1 %; Mean Corpuscular Hemoglobin 27.9 pg (28.0-33.3); Mean Corpuscular Volume 84.6 fL (83.0-100.0); Mean Platelet Volume 11.1 fL (9.4-12.4); Monocytes # 0.4 K/mcL (0.0-1.3); Monocytes % 4.8 %; Neutrophils # 6.9 K/mcL (1.6-8.9); Platelet Count 116 K/mcL (140-400); Red Blood Count 6.35 M/mcL (4.19-5.50); Red Cell Distribution Width 15.5 % (11.5-14.5); Segmented Neutrophils % 74.9 %; White Blood Count 9.2 K/mcL (4.3-11.1)
[2019-10-17 16:12] LABS: Albumin 3.6 g/dL (3.5-5.7); Albumin/Globulin Ratio 1.2 (1.1-2.2); Bilirubin,Total 0.7 mg/dL (0.3-1.0); Calcium 8.3 mg/dL (8.6-10.3); Potassium 3.9 mEq/L (3.5-5.1); Total Protein 6.6 g/dL (6.4-8.9)
[2019-10-17] MEDS ORDERED: MetroNIDAZOLE 500 MG/100 ML 500 MG/100 ML BAG IVPB ONE (17:44)
[2019-10-17] MEDS ORDERED: cefTRIAXone 2,000 MG in Water for inj. (sterile) 20 ML IVP ONE (17:44)
[2019-10-17] MEDS ORDERED: 0.9 % Sodium Chloride 1,000 ML IVC SCH (18:30)
[2019-10-17] MEDS ORDERED: Ondansetron ODT 4 MG TAB.RAPDIS SL PRN (21:16)
[2019-10-17] MEDS ORDERED: Nitroglycerin 0.4 MG TAB.SUBL SL PRN (21:16)
[2019-10-17] MEDS ORDERED: Albuterol 2.5 MG/3 ML NEBULIZER IH PRN (21:16)
[2019-10-17] MEDS: Budesonide/Formoterol 160/4.5 1 PUFF INH IH SCH (22:10)
[2019-10-17 22:51] LABS: Adenovirus F 40/41 PCR Not detected (Not detect); Astrovirus PCR Not detected (Not detect); C.difficile Toxin A/B Gene PCR Not detected (Not detect); Campylobacter by PCR Not detected (Not detect); Cryptosporidium by PCR Not detected (Not detect); Cyclospora cayetanensis PCR Not detected (Not detect); E. coli O157 by PCR Not detected (Not detect); Entamoeba histolytica PCR Not detected (Not detect); Enteroaggregative E.coli(EAEC) Not detected (Not detect); Enteropathogenic E.coli(EPEC) Not detected (Not detect); Enterotoxigenic E.coli (ETEC) Not detected (Not detect); Giardia lamblia PCR Not detected (Not detect); Norovirus GI/GII PCR Not detected (Not detect); Plesiomonas shigelloides PCR Not detected (Not detect); Rotavirus A PCR Not detected (Not detect); Salmonella PCR Not detected (Not detect); Sapovirus PCR DETECTED (Not detect); Shig/EnteroinvasiveE coli EIEC Not detected (Not detect); Shigalike tox-prod E coli STEC Not detected (Not detect); Vibrio PCR Not detected (Not detect); Vibrio cholerae PCR Not detected (Not detect); Yersinia enterocolitica PCR Not detected (Not detect)
[2019-10-18 03:52] LABS: Basophils # 0.1 K/mcL (0.0-0.2); Basophils % 0.7 %; Eosinophils # 0.1 K/mcL (0.0-0.6); Eosinophils % 1.8 %; Hemoglobin 16.4 g/dL (12.9-16.9); Immature Granulocytes % 0.5 % (0-4); Lymphocytes # 1.9 K/mcL (0.6-4.6); Lymphocytes % 25.4 %; Mean Corpuscular HGB Conc 32.8 g/dL (31.6-35.5); Mean Corpuscular Hemoglobin 28.1 pg (28.0-33.3); Mean Corpuscular Volume 85.6 fL (83.0-100.0); Mean Platelet Volume 10.6 fL (9.4-12.4); Monocytes # 0.5 K/mcL (0.0-1.3); Monocytes % 6.1 %; Neutrophils # 4.9 K/mcL (1.6-8.9); Platelet Count 101 K/mcL (140-400); Red Blood Count 5.84 M/mcL (4.19-5.50); Red Cell Distribution Width 15.3 % (11.5-14.5); Segmented Neutrophils % 65.5 %; White Blood Count 7.4 K/mcL (4.3-11.1)
[2019-10-18 04:17] LABS: BUN/Creatinine Ratio 15 (6-26); Blood Urea Nitrogen 19 mg/dL (8-23); Calcium 7.6 mg/dL (8.6-10.3); Carbon Dioxide 27 mEq/L (23-29); Chloride 106 mEq/L (98-107); Glucose 132 mg/dL (70-105); Osmolality,Calculated 290 (280-300); Potassium 3.6 mEq/L (3.5-5.1); Sodium 138 mEq/L (136-145); eGFR For African Americans > 60 (> 60); eGFR For Non-African Americans 55 (> 60)
[2019-10-18] MEDS: Budesonide/Formoterol 160/4.5 1 PUFF INH IH SCH ×2 (07:43→22:09)
[2019-10-18] MEDS: Tiotropium 18 MCG inhalation IH SCH (07:44)
[2019-10-18] MEDS: MetroNIDAZOLE 500 MG/100 ML 500 MG/100 ML BAG IVPB SCH ×4 (08:21→23:49)
[2019-10-18] MEDS ORDERED: NON-FORMULARY MEDICATION 1 EACH EACH (Magnesium 30 MG) PO SCH (09:00)
[2019-10-18] MEDS ORDERED: cefTRIAXone 2,000 MG in Water for inj. (sterile) 20 ML IVP SCH ×2 (09:00→15:00)
[2019-10-18] MEDS: Gabapentin 400 MG CAPSULE PO SCH ×3 (09:15→20:31)
[2019-10-18] MEDS: Loratadine 10 MG TABLET PO SCH (09:15)
[2019-10-18] MEDS: Aspirin Enteric Coated 81 MG Tablet PO SCH (09:15)
[2019-10-18] MEDS: Apixaban 5 MG TABLET PO SCH ×2 (09:15→20:32)
[2019-10-18] MEDS: *HR* Digoxin 0.125 MG TABLET PO SCH (09:15)
[2019-10-18] MEDS: Doxycycline 100 MG CAPSULE PO SCH (09:15)
[2019-10-18] MEDS: Metoprolol 100 MG TABLET PO SCH ×2 (09:15→20:32)
[2019-10-18] MEDS: Triamcinolone Acet 0.1% CRM 15 GM TUBE TP SCH (09:16)
[2019-10-19 06:59] VITALS: BP 114/83
[2019-10-19] MEDS: Tiotropium 18 MCG inhalation IH SCH (07:57)
[2019-10-19] MEDS: Budesonide/Formoterol 160/4.5 1 PUFF INH IH SCH (07:59)
[2019-10-19] MEDS: Doxycycline 100 MG CAPSULE PO SCH (09:35)
[2019-10-19] MEDS: Loratadine 10 MG TABLET PO SCH (09:35)
[2019-10-19] MEDS: Metoprolol 100 MG TABLET PO SCH (09:35)
[2019-10-19] MEDS: *HR* Digoxin 0.125 MG TABLET PO SCH (09:36)
[2019-10-19] MEDS: Gabapentin 400 MG CAPSULE PO SCH (09:36)
[2019-10-19] MEDS: MetroNIDAZOLE 500 MG/100 ML 500 MG/100 ML BAG IVPB SCH (09:36)
[2019-10-19] MEDS: Aspirin Enteric Coated 81 MG Tablet PO SCH (09:36)
[2019-10-19] MEDS: Apixaban 5 MG TABLET PO SCH (09:36)
[2019-10-19] MEDS: Triamcinolone Acet 0.1% CRM 15 GM TUBE TP SCH (09:39)
== END 2019-10-19 13:29 | disposition home or self-care (01) ==
LOC: 3ANU 14:29 → EMEROOARM 14:29 → SUATTDRO 18:03 → 3ANU 18:44
PROVIDERS: ADMIT Internal Medicine; ATTEND Internal Medicine